=== PATIENT | female | born 1930 | race Caucasian/White ===

== ENCOUNTER 2016-06-28 15:53 | Inpatient (IN) | payer MEDICARE, MEDICAID ==
[2016-06-28] MEDS ORDERED: Aspirin Low Dose CHEW TAB* 81 MG PO ONE (16:13)
[2016-06-28] MEDS ORDERED: Nitroglycerin TAB 0.4 MG* 0.4 MG TAB ONE (16:22)
[2016-06-28 16:38] LABS: Hematocrit 42 % (35-47); Hemoglobin 13.9 g/dl (12.0-16.0); Mean Corpuscular HGB Conc 33 g/dl (31-36); Mean Corpuscular Hemoglobin 29 pg (27-31); Mean Corpuscular Volume 87 fL (80-97); Mean Platelet Volume 9 um3 (7.4-10.4); Red Cell Distribution Width 14 % (10.5-15); White Blood Count 8.1 10^3/ul (3.5-10.8)
[2016-06-28 16:57] LABS: Troponin I 0.01 ng/mL (<0.04)
--- NOTE | 2016-06-28 16:59 | RAD ---
Indication: Chest pain, jaw pain. Cardiovascular disease and chronic obstructive pulmonary disease. Comparison: April 12, [address] demonstrating cardiomegaly and extensive coronary artery calcifications. Technique: Upright AP 1638 hours Report: Cardiomegaly without gross change. Unremarkable central pulmonary vasculature. Mild prominence and rarefaction of the interstitial markings. Grossly clear pleural spaces. Negative for pneumothorax. Multiple healed LEFT rib fractures. IMPRESSION: Stigmata of chronic obstructive pulmonary disease. Cardiomegaly. No acute cardiopulmonary process evident.
[2016-06-28 17:11] LABS: Albumin 3.9 g/dL (3.2-5.2); BUN/Creatinine Ratio 28.8 (8-20); Calcium 9.5 mg/dL (8.6-10.3); EGFR Non-African American 34.2 (>60); Globulin 3.5 g/dL (2-4); Potassium 4.6 mmol/L (3.5-5.0); Total Bilirubin 0.4 mg/dL (0.2-1.0); Total Protein 7.4 g/dL (6.4-8.9)
[2016-06-28 17:19] LABS: TSH (Thyroid Stimulating Horm) 1.45 mcIU/mL (0.34-5.60)
[2016-06-28 18:32] LABS: Urine Bilirubin Negative (Negative); Urine Glucose Negative (Negative); Urine Nitrite Negative (Negative)
--- NOTE | 2016-06-28 19:10 | ED ---
Yury Otero Adam, scribed for Alejandro Moreno MD on 06/28/16 at 1748 . HPI Chest Pain - HPI Summary HPI Summary: Pt is an 85 year old female presenting with CP and jaw pain. She states that the jaw pain set on at approximately 13:00 today and the CP set on upon her arrival at the ED. The CP was an 8/10 in severity but has resolved completely and is now a 0/10. The jaw pain is still present at this time though. Pt also reports some SOB associated with the onset of her pain. She denies any history of jaw problems or jaw pain and she denies any recent falls. Pt also denies dizziness. PMHx includes 2 stents, HTN, SVT, and diverticulitis (has colostomy) . Pt is a former smoker. - History of Current Complaint Chief Complaint: EDChestPainROMI Time Seen by Provider: 06/28/16 16:12 Hx Obtained From: Patient Onset/Duration: Started Hours Ago, Atraumatic, Still Present Timing: Constant, Lasting Hours Initial Severity: Moderate Current Severity: Moderate Pain Intensity: 8 Pain Scale Used: 0-10 Numeric Chest Pain Location: Diffuse Chest Pain Radiates: Yes Chest Pain Radiates To:: Jaw Aggravating Factor(s): Nothing Alleviating Factor(s): Nothing Associated Signs and Symptoms: Positive: Shortness of Breath - Allergy/Home Medications Allergies/Adverse Reactions: Allergies Allergy/AdvReac Type Severity Reaction Status Date / Time Atorvastatin [From Lipitor] Allergy Mild Vomiting Verified 04/12/14 10:32 Sulfa Antibiotics Allergy Mild Vomiting Verified 04/12/14 10:32 Penicillin G Allergy Unknown Rash Verified 04/12/14 10:32 [From Penicillin Potassium-G] Home Medications: Home Medications Alprazolam [Alprazolam] 0.125 mg PO Q4H PRN 06/28/16 [History Confirmed 06/28/16 ] Artificial Tears* 15 ML BTL [Polyvinyl Alcohol 1.4% OPTH*] 1 drop BOTH EYES QID PRN 06/28/16 [History Confirmed 06/28/16] Calcium Carbonate CHEW TAB* [Tums*] 500 mg PO QID PRN 06/28/16 [History Confirmed 06/28/16] Fluorometholone 0.1% OPTH.ALMAS* [Fml 0.1% Opth.susp*] 1 drop BOTH EYES DAILY 05/16 [History Confirmed 06/28/16] Latanoprost [Latanoprost] 1 drop BOTH EYES BEDTIME 06/28/16 [History Confirmed 06/28/16] Levothyroxine TAB* [Synthroid 75 MCG TAB*] 75 mcg PO DAILY 06/28/16 [History Confirmed 06/28/16] Lisinopril [Lisinopril] 10 mg PO DAILY 06/28/16 [History Confirmed 06/28/16] Loperamide HCl [Imodium A-D] 1 cap PO TID PRN 06/28/16 [History Confirmed ] Menthol (Mouth-Throat) [[place] Cough Drops Sugar F] 1 crescencio PO Q4H PRN 06/28/16 [ History Confirmed 06/28/16] Nitroglycerin TAB 0.4 MG* 0.4 mg SL Q5M PRN 06/28/16 [History Confirmed 06/28/16 ] Ondansetron TAB* [Zofran Tab*] 4 mg PO Q6H PRN 06/28/16 [History Confirmed 06/28] Polyvinyl Alcohol-Povidone (Op [Refresh 1.4-0.6 %] 1 drop LEFT EYE BEDTIME 06/28 [History Confirmed 06/28/16] Torsemide [Torsemide] 20 mg PO DAILY 06/28/16 [History Confirmed 06/28/16] guaiFENesin LIQ* [Robitussin*] 10 ml PO Q4H PRN 06/28/16 [History Confirmed 05/16] PMH/Surg Hx/FS Hx/Imm Hx Endocrine/Hematology History: Reports: Hx Thyroid Disease Denies: Hx Diabetes Cardiovascular History: Reports: Hx Coronary Artery Disease - STENT X2, Hx Hypertension Denies: Hx Pacemaker/ICD Respiratory History: Reports: Hx Asthma, Hx Chronic Obstructive Pulmonary Disease (COPD) GI History: Reports: Hx Diverticulosis, Hx Ileostomy History: Denies: Hx Acute Renal Failure, Hx Benign Prostatic Hyperplasia, Hx Chronic Renal Failure Musculoskeletal History: Reports: Hx Arthritis Sensory History: Reports: Hx Cataracts, Hx Contacts or Glasses, Hx Hearing Problem Denies: Hx Hearing Aid Opthamlomology History: Reports: Hx Cataracts, Hx Contacts or Glasses Neurological History: Reports: Hx Headaches Psychiatric History: Reports: Hx Anxiety, Hx Depression Denies: Hx Panic Disorder - Surgical History Surgery Procedure, Year, and Place: BOWEL RESECTION 2004 WITH COLOSTOMY; CARDIAC STENTS 2011; left eye corneal transplant ; right eye cataract removed summer 2013 Infectious Disease History: No Infectious Disease History: Denies: Hx Clostridium Difficile, Hx Hepatitis, Hx Human Immunodeficiency Virus (HIV), Hx Shingles, Hx Tuberculosis, Hx Known/Suspected VRE, Hx Known/ Suspected VRSA, History Other Infectious Disease, Traveled Outside the [place] in Last 30 Days - Family History Known Family History: Positive: Cardiac Disease - CAD - Social History Occupation: Retired [facility]: [facility] Alcohol Use: None Hx Substance Use: No Substance Use Type: Reports: None Hx Tobacco Use: Yes Smoking Status (MU): Former Smoker Type: Cigarettes Length of Time of Smoking/Using Tobacco: 50 YEARS Have You Smoked in the Last Year: No Review of Systems Negative: Fever Positive: Chest Pain Positive: Shortness Of Breath Positive: Other - Jaw pain All Other Systems Reviewed And Are Negative: Yes Physical Exam - Summary Physical Exam Summary: VITAL SIGNS: Reviewed. GENERAL: Patient is a well developed and nourished female who is lying comfortable in the stretcher. Patient is not in any acute respiratory distress. HEAD AND FACE: No signs of trauma. No ecchymosis, hematomas or skull depressions. No sinus tenderness. EYES: PERRLA, EOMI x 2, No injected conjunctiva, no nystagmus. EARS: Hearing grossly intact. Ear canals and tympanic membranes are within normal limits. MOUTH: Oropharynx within normal limits. NECK: Supple, trachea is midline, no adenopathy, no JVD, no carotid bruit, no c- spine tenderness, neck with full ROM. CHEST: Symmetric, no tenderness at palpation LUNGS: Clear to auscultation bilaterally. No wheezing or crackles. CVS: Regular rate and rhythm, S1 and S2 present, no murmurs or gallops appreciated. ABDOMEN: Soft, non-tender. No signs of distention. No rebound no guarding, and no masses palpated. Bowel sounds are normal. EXTREMITIES: FROM in all major joints, no edema, no cyanosis or clubbing. NEURO: Alert and oriented x 3. No acute neurological deficits. Speech is normal and follows commands. SKIN: Dry and warm Triage Information Reviewed: Yes Vital Signs On Initial Exam: Initial Vitals Temp Pulse Resp BP Pulse Ox 98.6 F 100 18 184/98 92 06/28/16 16:06 06/28/16 16:06 06/28/16 16:06 06/28/16 16:06 06/28/16 16:06 Vital Signs Reviewed: Yes - [place] Coma Scale Coma Scale Total: 15 Diagnostics - Vital Signs Vital Signs Temp Pulse Resp BP Pulse Ox 06/28/16 17:08 96 06/28/16 17:07 97.9 F 97 20 148/75 96 06/28/16 17:04 97.9 F 98 20 148/75 95 06/28/16 16:06 98.6 F 100 18 184/98 92 - Laboratory Lab Results: Lab Results 06/28/16 06/28/16 Range/Units 16:20 16:20 WBC 8.1 (3.5-10.8) 10^3/ul RBC 4.80 (4.0-5.4) 10^6/ul Hgb 13.9 (12.0-16.0) g/dl Hct 42 (35-47) % MCV 87 (80-97) fL MCH 29 (27-31) pg MCHC 33 (31-36) g/dl RDW 14 (10.5-15) % Plt Count 226 (150-450) 10^3/ul MPV 9 (7.4-10.4) um3 Neut % (Auto) 62.3 (38-83) % Lymph % (Auto) 22.3 L (25-47) % Young % (Auto) 8.8 (1-9) % Eos % (Auto) 5.6 (0-6) % Baso % (Auto) 1.0 (0-2) % Absolute Neuts (auto) 5.1 (1.5-7.7) 10^3/ul Absolute Lymphs (auto) 1.8 (1.0-4.8) 10^3/ul Absolute Monos (auto) 0.7 (0-0.8) 10^3/ul Absolute Eos (auto) 0.5 (0-0.6) 10^3/ul Absolute Basos (auto) 0.1 (0-0.2) 10^3/ul Absolute Nucleated RBC 0 10^3/ul Nucleated RBC % 0 INR (Anticoag Therapy) 0.89 (0.89-1.11) APTT 32.3 (26.0-36.3) seconds Result Diagrams: 06/28/16 16:20 06/28/16 16:20 Lab Statement: Any lab studies that have been ordered have been reviewed, and results considered in the medical decision making process. - Radiology CXR Radiology Interpretation Completed By: Radiologist - IMPRESSION: Stigmata of chronic obstructive pulmonary disease. Cardiomegaly. No acute cardiopulmonary process evident. - EKG 15:59 Cardiac Rate: NL - 97 BPM EKG Rhythm: Sinus Rhythm EKG Interpretation: No ST elevations. Q waves in II, III, and AVF. EKG Comparison: No Significant Change - Similar to previous EKG from 04/12/14 - Additional Comments Diagnostic Additional Comments: Troponin I - 0.01 Chest Pain Course/Dx - Course Course Of Treatment: Pt is an 85 year old female presenting with CP and jaw pain. She states that the jaw pain set on at approximately 13:00 today and the CP set on upon her arrival at the ED. The CP was an 8/10 in severity but has resolved completely and is now a 0/10. The jaw pain is still present at this time though. Pt also reports some SOB associated with the onset of her pain. She denies any history of jaw problems or jaw pain and she denies any recent falls. Pt also denies dizziness. PMHx includes 2 stents, HTN, SVT, and diverticulitis (has colostomy). Pt is a former smoker. BW shows sodium of 132, chronic renal failure with BUN of 42 and creatinine of 1.46. Troponin I is 0.01. 2 EKG's show sinus rhythm without ST elevations, Q waves in II, III, and AVF. EKG's similar to a previous EKG from 04/12/14. The pt was given ASA and also NTG which improved the pt's symptoms. At this point I discussed the case with Dr. Gamboa from hospitalist services who agreed to admit the pt for further work-up and management. The pt is hemodynamically stable and A&Ox3. - Chest Pain Differential Diagnosis/HQI/PQRI: Acute KS, ACS, Angina, CHF, Chest Wall, GI Disease, Lower Respiratory Infection - Diagnoses Provider Diagnoses: Chest pain r/o ACS Discharge - Discharge Plan Condition: Stable Disposition: ADMITTED TO [facility] The documentation as recorded by the magaliibYury salgado Adam accurately reflects the service I personally performed and the decisions made by me, Alejandro Moreno MD.
[2016-06-28] MEDS ORDERED: Artificial Tears* 15 ML BTL BOTH EYES PRN (19:11)
[2016-06-28] MEDS ORDERED: Calcium Carbonate CHEW TAB* 500 MG (TUMS) PO PRN (19:11)
[2016-06-28] MEDS ORDERED: NS 0.9% 1000 ML* 1,000 ML IV SCH (19:15)
[2016-06-28] MEDS: Ipratropium HFA INHALER(NF) (ALTERNATIVE = NEBS) INH SCH (19:57)
[2016-06-28] MEDS: Artificial Tears* 15 ML BTL LEFT EYE SCH (20:21)
[2016-06-28] MEDS: Latanoprost 0.005%* 2.5 ml BTL BOTH EYES SCH (20:21)
--- NOTE | 2016-06-28 21:49 | PN ---
Hospitalist Progress Note Repeat EKG shows SVT, rate 151. Previous EKG showed NSR. Pt in NSR with rate in the 80's on Tele at this time. Will repeat EKG in AM.
[2016-06-28] MEDS: ALPRAZolam TAB* 0.25 MG PO PRN (22:39)
--- NOTE | 2016-06-29 01:09 | HP ---
HISTORY AND PHYSICAL: DATE OF ADMISSION: 06/28/16 PRIMARY CARE PROVIDER: Dr. Joaquin. ATTENDING PHYSICIAN: [place] Gamboa MD* (dictated by Tamanna Bautista NP). CHIEF COMPLAINT: Jaw pain. HISTORY OF PRESENT ILLNESS: Ms. Jones is an 85-year-old female with past medical history significant for hypothyroidism, hypertension, heart failure, anxiety, depression, hyperlipidemia, osteoporosis, glaucoma, COPD, and atrial fibrillation, who presented to the emergency room today after developing jaw pain at home. The patient reports that she has been feeling very stressed recently, she moved from [facility] on Sunday after having an incident with another resident and being scared. The patient reports not sleeping since the incident until she moved to [place] on Sunday. The patient reports she woke up this morning feeling her normal state of health, ate breakfast and had lunch, was sitting and watching television, when she developed jaw pain. The patient reports walking to the nurses' station, at which time they checked her blood pressure and found her to be hypertensive with a blood pressure of 184/ 108 and tachycardic with a heart rate of 101. The patient was given Xanax and sat. After sitting for a while, her blood pressure was rechecked and was 151/ 93 and heart rate was 100. At that time, the patient's jaw discomfort had resolved. The patient decided to present to the emergency room for further evaluation of her symptoms. Of note, the patient reports feeling fatigued in general today. She states that while she was watching television, she felt even more fatigued. The patient denies any recent fever, chills, shortness of breath, nausea or vomiting, diaphoresis. The patient reports urinary incontinence. While in the emergency room, the patient developed sternal chest discomfort. She is unable to really quantify this. The patient also had return of the jaw pain. The patient was given 3 aspirins while in the emergency room. She had an EKG showing a sinus rhythm with a rate of 9 and a new Q wave in aVF. Other than that, the EKG is similar to the previous EKG from 06/13/16. The patient had a chest x- ray showing stigmata of COPD, cardiomegaly, and no acute cardiopulmonary disease. The patient had labs that were significant for troponin of 0.01. Based on concern for the patient's presentation and EKG abnormalities, the hospitalist were asked to evaluate the patient for admission. PAST MEDICAL HISTORY: 1. Hypothyroidism. 2. Hypertension. 3. Heart failure. 4. Anxiety and depression. 5. Hyperlipidemia. 6. Osteoporosis. 7. Cardiomegaly. 8. Glaucoma. 9. COPD. 10. Atrial fibrillation. 11. Diverticulitis. 12. GERD. PAST SURGICAL HISTORY: 1. The patient is status post cardiac catheterization in 2011, at which time she had 2 cardiac stents placed. 2. Status post bowel resection with colostomy placement. 3. Status post cornea transplant. HOME MEDICATIONS: Include: 1. Aspirin 81 mg oral daily. 2. Levothyroxine 75 mcg oral daily. 3. Fluorometholone 0.1% ophthalmic 1 drop to both eyes daily. 4. Lisinopril 10 mg oral daily. 5. Torsemide 20 mg oral daily. 6. Atrovent HFA inhaler 2 puffs inhalation t.i.d. 7. Latanoprost 1 drop to both eyes daily at bedtime. 8. Guaifenesin 600 mg oral every 12 hours as needed for cough. 9. Xanax 0.125 mg oral every 4 hours as needed for anxiety. 10. Nitroglycerin 0.4 mg sublingual every 5 minutes as needed for chest pain. 11. [place] cough drops 1 lozenge oral every 4 hours as needed for cough. 12. Artificial Tears 1 drop to both eyes 4 times daily as needed for dry eye. 13. Tums 500 mg oral 4 times daily as needed for indigestion. 14. Imodium A-D 1 capsule oral 3 times daily as needed for loose stools. 15. Zofran 4 mg oral every 6 hours as needed for nausea. 16. Refresh eye drops 1 drop to left eye daily at bedtime. 17. Guaifenesin 10 mL oral every 4 hours as needed for cough. ALLERGIES: 1. ATORVASTATIN. 2. SULFA. 3. PENICILLIN G. FAMILY HISTORY: The patient's father had a history of heart disease, the patient's mother had a history of diabetes mellitus and uterine cancer in her 70s. SOCIAL HISTORY: The patient is a former smoker. She quit smoking 6 years ago. Prior to that, the patient smoked for approximately 60 years, approximately half a pack a day. The patient formerly drank alcohol but has not drank alcohol in 14 years. The patient is retired. She currently lives at [facility]. The patient's daughter, Leisa Jones, will be her surrogate decision maker in the event she is unable to make decisions for herself. REVIEW OF SYSTEMS: I performed a 14-point review of systems. All the pertinent positives and negatives are mentioned in the history of present illness. The remaining review of systems are negative. The patient reports intermittent tingling in her left arm. Often she wakes up in the night with this discomfort and she has had this for quite some time. PHYSICAL EXAMINATION GENERAL APPEARANCE: The patient is alert, pleasant, appears to be in no acute distress. VITAL SIGNS: Temperature 97.9, heart rate 97, respiratory rate 20, O2 sat 96% on 2 L via nasal cannula, blood pressure 148/75. HEENT: Normocephalic, atraumatic. Pupils are equal and reactive to light. Extraocular movements are intact. NECK: Supple. There is no lymphadenopathy noted. RESPIRATORY: There is no accessory muscle use and the lungs are clear to auscultation bilaterally. CARDIAC: Regular rate and rhythm. S1, S2 are present. There are no murmurs, rubs or gallops heard. ABDOMEN: Soft, nontender, nondistended. There are bowel sounds present x4. The patient has an ostomy to her left side of her abdomen. EXTREMITIES: There is no lower extremity edema. DP and PT pulses are 2+ and symmetric. MUSCULOSKELETAL: There is no clubbing or cyanosis noted. The patient exhibits good strength in all extremities. NEUROLOGIC: The patient is alert and oriented x4. Cranial nerves II through XII are grossly intact. PSYCHOLOGIC: The patient is calm and cooperative. SKIN: There are no rashes or abnormalities seen. DIAGNOSTIC STUDIES/LABORATORY DATA: Sodium 132, potassium 4.6, chloride 99, CO2 is 23, BUN 42, creatinine 1.46, glucose 111. White blood cell count 8.1, hemoglobin 13.9, hematocrit 42, and platelet count 226. Troponin 0.01, TSH 1.45. EKG shows a sinus rhythm with a rate of 97. There is a new Q wave in lead aVF. Other than that, the EKG is similar to previous EKG from March 2014. Chest x-ray from today, radiologist's impression: Stigmata of chronic obstructive pulmonary disease. Cardiomegaly. No acute cardiopulmonary process evident. IMPRESSION: Ms. Jones is an 85-year-old female with a past medical history significant for coronary artery disease, heart failure, hypertension, hyperlipidemia, hypothyroidism, and chronic obstructive pulmonary disease, who presented to the emergency room with complaints of jaw pain. She will be admitted as an observation for chest pain to rule out acute coronary syndrome. ASSESSMENT: 1. Chest pain. The patient will be admitted to rule out acute coronary syndrome. The patient will be monitored on telemetry, will trend her troponins. At this time, the patient is declining a stress test, so we will check an echocardiogram. We will also recheck an EKG in the morning. Having a stress test and the possibility of a cardiac catheterization was discussed with both the patient and the daughter at this time. They both agree to forego cardiac stress testing. Will check fasting lipids in the morning. Her ELISSA score is 2. 2. Hyponatremia. The patient will be given gentle IV hydration overnight and we will recheck her labs in the morning. 3. Acute on chronic kidney injury. The patient's baseline creatinine appears to be around 1.0. We will give her a gentle IV hydration, will recheck her labs in the morning. For now, we will hold the patient's lisinopril and torsemide. 4. History of glaucoma. The patient will be continued on her home eye drops. 5. Hypothyroidism. The patient will be continued on her home levothyroxine. Her TSH is 1.45. 6. Heart failure. The patient will have strict I's and O's and daily weights. Due to her acute on chronic kidney injury, we will temporarily hold her torsemide and recheck her labs in the morning and then restart her medication accordingly. 7. Fluids, electrolytes, nutrition. The patient will be on a heart healthy diet. 8. Code status. Do not resuscitate. 9. DVT prophylaxis. The patient is at highest risk and will have subcu heparin. 10. Disposition. Observation for chest pain, rule out acute coronary syndrome. TIME SPENT: The time for this admission was 60 minutes, 35 minutes was spent face- to-face with the patient and daughter discussing medications, past medical history and the events leading up to her arrival today and performing a physical examination. The case has been reviewed with the attending, Dr. Gamboa, who agrees with the plan of care. Reviewed by TAMANNA BAUTISTA, PENELOPE-David 06/29/16 1459 CC: Dr. Joaquin * [id number]/[facility] #: [id number] DRAGAN
[2016-06-29] MEDS: Levothyroxine TAB* 75 MCG TAB PO SCH (05:11)
[2016-06-29] MEDS: Acetaminophen TAB* 325 MG PO PRN (05:11)
[2016-06-29 05:36] LABS: BUN/Creatinine Ratio 29.3 (8-20); Calcium 8.8 mg/dL (8.6-10.3); EGFR Non-African American 38.1 (>60); HDL Cholesterol 40.5 mg/dL; Potassium 4.3 mmol/L (3.5-5.0)
[2016-06-29] MEDS: ALPRAZolam TAB* 0.25 MG PO PRN ×2 (05:56→18:57)
[2016-06-29 06:21] LABS: Troponin I 0.02 ng/mL (<0.04)
[2016-06-29] MEDS: Ipratropium HFA INHALER(NF) (ALTERNATIVE = NEBS) INH SCH ×3 (08:33→20:01)
[2016-06-29] MEDS: Fluorometholone 0.1% OPTH.SUS* 5 ML BTL BOTH EYES SCH (09:39)
[2016-06-29] MEDS: Aspirin EC Low Dose* 81 MG TAB.EC PO SCH (09:39)
--- NOTE | 2016-06-29 11:08 | ECHO ---
Patient: FRANCIA JACKMAN [facility] Rec#: [id number] : 1930 Date: 06/29/2016 Age: 85y Height: 152.4 cm / 60.0 in Weight: 73.94 kg / 163.0 lbs Sex: F BSA: 1.71 Room#: [facility] Admit Date#: 06/28/2016 Type: Inpatient Referring: Inga Quick NP Reading: Javier Swanson MD Morning Nanny: Yamileth Vargas RDCS CC: Zhao Rodríguez MD Transthoracic Echocardiogram Indication: CP BP: 146/80 HR: 87 Rhythm: NSR Findings History: Former smoker,s/p PCI 2011 2 stents,anxiety-depression,s/p colostomy 2004,asthma,COPD,HLD,hypothyroidism. Technical Comments: The study is technically limited due to the patient's history of COPD. Completed at 1010. Left Ventricle: The left ventricular chamber size is decreased. Mild to moderate concentric left ventricular hypertrophy is observed. Global left ventricular wall motion and contractility are within normal limits. There is normal left ventricular systolic function. The estimated ejection fraction is 60-65%. Abnormal left ventricular diastolic function is observed. Left Atrium: The left atrium is slightly dilated. Right Ventricle: The right ventricular cavity size is normal. The right ventricular global systolic function is normal. Right Atrium: The right atrial cavity size is normal. Aortic Valve: The aortic valve is trileaflet. There is no evidence of aortic regurgitation. There is no evidence of aortic stenosis. Mitral Valve: There is mitral annular calcification. Mild mitral leaflet calcification is visualized. There is trace to mild mitral regurgitation. There is no evidence of mitral stenosis. Tricuspid Valve: The tricuspid valve leaflets are normal. There is trace tricuspid regurgitation. There is evidence of mild pulmonary hypertension. There is no tricuspid stenosis. Pulmonic Valve: The pulmonic valve appears normal. There is no evidence of pulmonic regurgitation. There is no pulmonic stenosis. Pericardium: A pericardial fat pad is visualized. Aorta: There is no dilatation of the ascending aorta. There is no dilatation of the aortic arch. There is no dilation of the aortic root. Pulmonary Artery: The main pulmonary artery appears normal. Venous: The venous system is not well visualized. Conclusions Global left ventricular wall motion and contractility are within normal limits. There is normal left ventricular systolic function. The estimated ejection fraction is 60-65%. No significant valvular disease: The mitral leaflets and annulus has calcium present without evidence offered for stenosis. There is trace to mild mitral regurgitation. There is trace tricuspid regurgitation. Compared to report of study from 08/21/2013 the overall LV systolic function is better (was quoted as 45-50%). Measurements Name Value Normal Range RVIDd (AP) 2D 2.5 cm (0.9 - 2.6) RVDdMajor (2D) 3.4 cm (2.2 - 4.4) RAd ISD 4CH 4.9 cm (3.4 - 4.9) RA (A4C)W 3.9 cm (2.9 - 4.6) IVSd (2D) 1.4 cm (0.6 - 1) LVPWd (2D) 1.4 cm (0.6 - 1) LVIDd (2D) 3.2 cm (3.6 - 5.4) LVIDs (2D) 2 cm - LV FS (2D) 40 % (25 - 45) Aortic Annulus 1.9 cm (1.4 - 2.6) Ao root diameter (2D) 2.5 cm (2.1 - 3.5) Ascending Ao 3.4 cm (2.1 - 3.4) Aortic arch 2.1 cm (1.8 - 3.4) Descending Ao 0.6 cm - LA dimension (AP) 2D 4 cm (2.3 - 3.8) LAd ISD 4CH 5.6 cm (2.9 - 5.3) LA ISD 4CH W 3.9 cm (2.5 - 4.5) Name Value Normal Range LA ESV SP 4CH (A/L) 65 ml - LA ESV SP 2CH (A/L) 41 ml - LA ESV BP (A/L) 54 ml - LA ESV BP (A/L) index 31.67 ml/m2 - LA ESV SP 4CH (MOD) 61 ml - LA ESV SP 2CH (MOD) 39 ml - Name Value Normal Range MV E-wave Vmax 1.2 m/sec - MV deceleration time 189 msec - MV A-wave Vmax 1.2 m/sec - MV E:A ratio 0.99 ratio - LV septal e' Vmax 0.06 m/sec - LV lateral e' Vmax 0.05 m/sec - LV E:e' septal ratio 20 ratio - LV E:e' lateral ratio 24 ratio - Name Value Normal Range AV Vmax 1.6 m/sec - AV VTI 32.3 cm - AV peak gradient 9.64 mmHg - AV mean gradient 4.73 mmHg - LVOT Vmax 1 m/sec - LVOT VTI 25.2 cm - LVOT peak gradient 4.32 mmHg - LVOT mean gradient 2.25 mmHg - Name Value Normal Range TR Vmax 2.7 m/sec - TR peak gradient 29 mmHg - RAP 8 mmHg - RVSP 37 mmHg - Name Value Normal Range PV Vmax 0.7 m/sec - PV peak gradient 1.97 mmHg -
--- NOTE | 2016-06-29 13:45 | PN ---
Subjective Date of Service: 06/29/16 Interval History: Patient reports she isnt ready to go home still has jaw pain and is worried about the CP she was experiencing that she now reports has resolved. She now wants a cardiac stress test. Curently denies CP or SOB. Reports good appetite. No N/V/D Objective Active Medications: Acetaminophen (Tylenol Tab*) 650 mg PO Q6H PRN PRN Reason: FEVER/PAIN Last Admin: 06/29/16 05:11 Dose: 650 mg Alprazolam (Xanax Tab*) 0.125 mg PO QID PRN PRN Reason: ANXIETY Last Admin: 06/29/16 05:56 Dose: 0.125 mg Aspirin (Aspirin Ec Low Dose*) 81 mg PO DAILY [facility] Last Admin: 06/29/16 09:39 Dose: 81 mg Calcium Carbonate (Tums*) 500 mg PO QID PRN PRN Reason: INDIGESTION Fluorometholone Acetate (Fml 0.1% Opth.Susp*) 1 drop BOTH EYES DAILY [facility] Last Admin: 06/29/16 09:39 Dose: 1 drop Ipratropium [place] (Atrovent Hfa Inhaler*) 2 puff INH TID [facility] Last Admin: 06/29/16 08:33 Dose: 2 puff Latanoprost (Xalatan 0.005%*) 1 drop BOTH EYES BEDTIME [facility] Last Admin: 06/28/16 20:21 Dose: 1 drop Levothyroxine Sodium (Synthroid Tab*) 75 mcg PO 0600 [facility] Last Admin: 06/29/16 05:11 Dose: 75 mcg Polyvinyl Alcohol (Polyvinyl Alcohol 1.4% Opth*) 1 drop LEFT EYE BEDTIME [facility] Last Admin: 06/28/16 20:21 Dose: 1 drop Polyvinyl Alcohol (Polyvinyl Alcohol 1.4% Opth*) 1 drop BOTH EYES QID PRN PRN Reason: dry eyes Last Admin: 06/29/16 09:40 Dose: 1 drop Vital Signs 06/28/16 06/28/16 06/28/16 18:00 18:19 18:30 Temperature Pulse Rate 100 94 Respiratory 19 20 21 Rate Blood Pressure 155/95 171/114 166/148 (mmHg) O2 Sat by Pulse 96 97 Oximetry 06/28/16 06/28/16 06/28/16 18:51 18:58 19:00 Temperature Pulse Rate 106 99 102 Respiratory 19 19 18 Rate Blood Pressure 181/94 170/81 (mmHg) O2 Sat by Pulse 97 97 97 Oximetry 06/28/16 06/28/16 06/28/16 19:20 22:39 23:04 Temperature 97 F 97.7 F Pulse Rate 99 95 Respiratory 20 18 18 Rate Blood Pressure 170/81 166/80 (mmHg) O2 Sat by Pulse 95 92 Oximetry 06/29/16 06/29/16 06/29/16 00:24 00:39 04:00 Temperature 97.7 F 97.6 F Pulse Rate 76 83 Respiratory 20 16 20 Rate Blood Pressure 115/62 146/80 (mmHg) O2 Sat by Pulse 95 99 Oximetry 06/29/16 06/29/16 06/29/16 05:56 07:36 08:35 Temperature Pulse Rate 71 Respiratory 18 18 Rate Blood Pressure 135/69 (mmHg) O2 Sat by Pulse 99 95 Oximetry 06/29/16 11:33 Temperature 99.1 F Pulse Rate 82 Respiratory 16 Rate Blood Pressure 138/65 (mmHg) O2 Sat by Pulse 94 Oximetry Oxygen Devices in Use Now: None Appearance: elderly female sitting up in a chair Eyes: No Scleral Icterus, PERRLA Ears/Nose/Mouth/Throat: Clear Oropharnyx Respiratory: Symmetrical Chest Expansion and Respiratory Effort, Clear to Auscultation Cardiovascular: NL Sounds; No Murmurs; No JVD, RRR, No Edema Abdominal: NL Sounds; No Tenderness; No Distention Lymphatic: No Axillary Adenopathy Extremities: No Clubbing, Cyanosis Skin: No Rash or Ulcers, No Nodules or Sclerosis Neurological: Alert and Oriented x 3, NL Sensation, NL Gait, NL Muscle Strength and Tone Lines/Tubes/Other Access: Clean, Dry and Intact Peripheral IV Nutrition: Taking PO's Result Diagrams: 06/28/16 16:20 06/29/16 04:51 Additional Lab and Data: Lab Results 06/28/16 06/28/16 Range/Units 16:20 16:20 WBC 8.1 (3.5-10.8) 10^3/ul RBC 4.80 (4.0-5.4) 10^6/ul Hgb 13.9 (12.0-16.0) g/dl Hct 42 (35-47) % MCV 87 (80-97) fL MCH 29 (27-31) pg MCHC 33 (31-36) g/dl RDW 14 (10.5-15) % Plt Count 226 (150-450) 10^3/ul MPV 9 (7.4-10.4) um3 Neut % (Auto) 62.3 (38-83) % Lymph % (Auto) 22.3 L (25-47) % Hardy % (Auto) 8.8 (1-9) % Eos % (Auto) 5.6 (0-6) % Baso % (Auto) 1.0 (0-2) % Absolute Neuts (auto) 5.1 (1.5-7.7) 10^3/ul Absolute Lymphs (auto) 1.8 (1.0-4.8) 10^3/ul Absolute Monos (auto) 0.7 (0-0.8) 10^3/ul Absolute Eos (auto) 0.5 (0-0.6) 10^3/ul Absolute Basos (auto) 0.1 (0-0.2) 10^3/ul Absolute Nucleated RBC 0 10^3/ul Nucleated RBC % 0 INR (Anticoag Therapy) 0.89 (0.89-1.11) APTT 32.3 (26.0-36.3) seconds Assess/Plan/Problems-Billing Assessment: 85 yo female with PMH of CAD s/p stenting, hx of colon cancer s/p colectomy, RA, CHF, HTN, anxiety, COPD who presented to the ED from [place] with jaw pain admitted for CP r/o ACS - Patient Problems (1) Chest pain Comment: - hx of CAD s/p stent placement - Pt initially refuse Nuc stress test now wants to proceed with obtaining stress test. Unlcear etiology of jaw pain/chest pain but agree with plan for stress test due to hx. No further symptoms. run of SVT last night rate 150s which resolved quickly on its own. Continue to monitor on tele. No EKG changes noted form prior EKGs. - plan for NPO p midnight with Cardiac Nuc Stress test in am. - 3 negative troponins - TTE showing global left ventricular wall motion and contractility wnls, LVEF 60-65% (increased from 45-50% 2013), no significant valvular disease - continue ASA (2) History of COPD Comment: - stable. Continue home INH's (3) Hx of congestive heart failure Comment: - stable, asymptomatic. Continue lisinopril. Hold Torsemide, recheck creatinine in am. Daily weights (4) History of hypertension Comment: - restart lisinopril (5) History of hypothyroidism Comment: - TSH wnls - continue synthroid (6) CKD (chronic kidney disease) Comment: - close to baseline. improved with IVFs (7) Anxiety Comment: - continue xanax (8) History of colon cancer Comment: - s/p colectomy (9) DVT prophylaxis Comment: HSQ Status and Disposition: OBV. Plan for nuc cardiac stress test in am.
[2016-06-29] MEDS ORDERED: Lisinopril TAB* 10 MG PO ONE (18:00)
[2016-06-29] MEDS: Artificial Tears* 15 ML BTL LEFT EYE SCH (20:21)
[2016-06-29] MEDS: Heparin VIAL(*) 5000 UNITS/ML VIAL (FIVE THOUSAND) SUBCUT SCH (20:21)
[2016-06-29] MEDS: Latanoprost 0.005%* 2.5 ml BTL BOTH EYES SCH (20:21)
[2016-06-30] MEDS: Acetaminophen TAB* 325 MG PO PRN (00:34)
[2016-06-30] MEDS: Levothyroxine TAB* 75 MCG TAB PO SCH (05:07)
[2016-06-30] MEDS: Heparin VIAL(*) 5000 UNITS/ML VIAL (FIVE THOUSAND) SUBCUT SCH ×3 (05:07→20:49)
[2016-06-30 05:53] LABS: Hematocrit 44 % (35-47); Hemoglobin 14.5 g/dl (12.0-16.0); Mean Corpuscular HGB Conc 33 g/dl (31-36); Mean Corpuscular Hemoglobin 29 pg (27-31); Mean Corpuscular Volume 87 fL (80-97); Mean Platelet Volume 9 um3 (7.4-10.4); Red Blood Count 5.05 10^6/ul (4.0-5.4); Red Cell Distribution Width 14 % (10.5-15); White Blood Count 7.9 10^3/ul (3.5-10.8)
[2016-06-30 06:07] LABS: BUN/Creatinine Ratio 26.7 (8-20); Calcium 9.3 mg/dL (8.6-10.3); EGFR African American 57.4 (>60); EGFR Non-African American 44.6 (>60); Potassium 4.8 mmol/L (3.5-5.0)
[2016-06-30] MEDS: Ipratropium HFA INHALER(NF) (ALTERNATIVE = NEBS) INH SCH ×3 (08:50→22:09)
[2016-06-30] MEDS ORDERED: Lisinopril TAB* 10 MG PO SCH (09:00)
[2016-06-30] MEDS ORDERED: Regadenoson* 0.4 MG/5 ML SYRINGE ONE (10:22)
[2016-06-30] MEDS ORDERED: Aminophylline IV* 25 MG/ML 10 ML VIAL ONE (11:18)
[2016-06-30] MEDS ORDERED: Loperamide CAP* 2 MG PO ONE (13:03)
--- NOTE | 2016-06-30 13:14 | RAD ---
Indication: Chest pain. Myocardial perfusion scan was performed utilizing 1 day protocol. 10.04 mCi of technetium 99 and tetrofosmin was injected for the rest portion of the study. Pharmacological stress was applied and 25.06 mCi of technetium 99m tetrofosmin was injected for the stress portion of the study. On the stress images there is a moderate-sized inferolateral area of photopenia. This appears to partially reverse on the rest images. Ventricle is normal in size. Ejection fraction at stress is present. Evaluation of wall motion demonstrates no definite focal wall motion. IMPRESSION: There appears to be moderate size reversible defect involving the inferolateral wall. Normal ejection fraction. ASSESSMENT: Intermediate risk Based on imaging criteria from ACC/AHA 2002 Guideline Update for the Management of Patients With Chronic Stable Angina Table 23. Noninvasive Risk Stratification.
[2016-06-30] MEDS: Aspirin EC Low Dose* 81 MG TAB.EC PO SCH (13:16)
[2016-06-30] MEDS: Fluorometholone 0.1% OPTH.SUS* 5 ML BTL BOTH EYES SCH (13:17)
[2016-06-30] MEDS: ALPRAZolam TAB* 0.25 MG PO PRN (13:46)
--- NOTE | 2016-06-30 14:45 | PN ---
Subjective Date of Service: 06/30/16 Interval History: pt reports she feels she is at her baseline and has not had a further CP or jaw pain. She reports she has ambulated in her room w/o any difficulty. Feels stronger today compared to yesterday. Good appetite. No N/V/D. Denies orthopnea or LE edema. Objective Active Medications: Acetaminophen (Tylenol Tab*) 650 mg PO Q6H PRN PRN Reason: FEVER/PAIN Last Admin: 06/30/16 00:34 Dose: 650 mg Alprazolam (Xanax Tab*) 0.125 mg PO QID PRN PRN Reason: ANXIETY Last Admin: 06/30/16 13:46 Dose: 0.125 mg Aspirin (Aspirin Ec Low Dose*) 81 mg PO DAILY [facility] Last Admin: 06/30/16 13:16 Dose: 81 mg Calcium Carbonate (Tums*) 500 mg PO QID PRN PRN Reason: INDIGESTION Fluorometholone Acetate (Fml 0.1% Opth.Susp*) 1 drop BOTH EYES DAILY [facility] Last Admin: 06/30/16 13:17 Dose: 1 drop Heparin Sodium (Porcine) (Heparin Vial(*)) 5,000 units SUBCUT Q8HR [facility] Last Admin: 06/30/16 05:07 Dose: 5,000 units Ipratropium [place] (Atrovent Hfa Inhaler*) 2 puff INH TID [facility] Last Admin: 06/30/16 14:15 Dose: Not Given Latanoprost (Xalatan 0.005%*) 1 drop BOTH EYES BEDTIME [facility] Last Admin: 06/29/16 20:21 Dose: 1 drop Levothyroxine Sodium (Synthroid Tab*) 75 mcg PO 0600 [facility] Last Admin: 06/30/16 05:07 Dose: 75 mcg Lisinopril (Prinivil Tab*) 10 mg PO DAILY [facility] Last Admin: 06/30/16 13:16 Dose: 10 mg Polyvinyl Alcohol (Polyvinyl Alcohol 1.4% Opth*) 1 drop LEFT EYE BEDTIME [facility] Last Admin: 06/29/16 20:21 Dose: 1 drop Polyvinyl Alcohol (Polyvinyl Alcohol 1.4% Opth*) 1 drop BOTH EYES QID PRN PRN Reason: dry eyes Last Admin: 06/29/16 09:40 Dose: 1 drop Vital Signs 06/29/16 06/29/16 06/29/16 15:49 16:44 18:57 Temperature 97.6 F Pulse Rate 95 Respiratory 16 24 Rate Blood Pressure 162/88 (mmHg) O2 Sat by Pulse 95 94 Oximetry 06/29/16 06/29/16 06/29/16 20:00 20:12 20:57 Temperature 97.6 F Pulse Rate 87 Respiratory 16 16 18 Rate Blood Pressure 135/69 (mmHg) O2 Sat by Pulse 93 Oximetry 06/30/16 06/30/16 06/30/16 00:05 03:27 08:07 Temperature 97.5 F 98.2 F 97.5 F Pulse Rate 85 98 86 Respiratory 20 20 24 Rate Blood Pressure 156/90 149/85 162/93 (mmHg) O2 Sat by Pulse 93 91 95 Oximetry 06/30/16 06/30/16 06/30/16 08:51 13:16 13:46 Temperature Pulse Rate Respiratory 18 16 Rate Blood Pressure (mmHg) O2 Sat by Pulse 97 Oximetry Oxygen Devices in Use Now: None Appearance: 85 yo female sitting up in a chair in NAD. A+O x3 Eyes: No Scleral Icterus, PERRLA Ears/Nose/Mouth/Throat: NL Teeth, Lips, Gums, Mucous Membranes Moist Neck: NL Appearance and Movements; NL JVP Respiratory: Symmetrical Chest Expansion and Respiratory Effort, Clear to Auscultation Cardiovascular: NL Sounds; No Murmurs; No JVD, RRR, No Edema Abdominal: NL Sounds; No Tenderness; No Distention Lymphatic: No Cervical Adenopathy Extremities: No Edema, No Clubbing, Cyanosis Skin: No Rash or Ulcers, No Nodules or Sclerosis Neurological: Alert and Oriented x 3, NL Sensation, NL Gait, NL Muscle Strength and Tone Lines/Tubes/Other Access: Clean, Dry and Intact Peripheral IV Nutrition: Taking PO's Result Diagrams: 06/30/16 05:15 06/30/16 05:15 Additional Lab and Data: Lab Results 06/28/16 06/28/16 Range/Units 16:20 16:20 WBC 8.1 (3.5-10.8) 10^3/ul RBC 4.80 (4.0-5.4) 10^6/ul Hgb 13.9 (12.0-16.0) g/dl Hct 42 (35-47) % MCV 87 (80-97) fL MCH 29 (27-31) pg MCHC 33 (31-36) g/dl RDW 14 (10.5-15) % Plt Count 226 (150-450) 10^3/ul MPV 9 (7.4-10.4) um3 Neut % (Auto) 62.3 (38-83) % Lymph % (Auto) 22.3 L (25-47) % Swain % (Auto) 8.8 (1-9) % Eos % (Auto) 5.6 (0-6) % Baso % (Auto) 1.0 (0-2) % Absolute Neuts (auto) 5.1 (1.5-7.7) 10^3/ul Absolute Lymphs (auto) 1.8 (1.0-4.8) 10^3/ul Absolute Monos (auto) 0.7 (0-0.8) 10^3/ul Absolute Eos (auto) 0.5 (0-0.6) 10^3/ul Absolute Basos (auto) 0.1 (0-0.2) 10^3/ul Absolute Nucleated RBC 0 10^3/ul Nucleated RBC % 0 INR (Anticoag Therapy) 0.89 (0.89-1.11) APTT 32.3 (26.0-36.3) seconds Assess/Plan/Problems-Billing Assessment: 85 yo female with PMH of CAD s/p stenting, hx of colon cancer s/p colectomy, RA, CHF, HTN, anxiety, COPD who presented to the ED from [place] with jaw pain admitted for CP r/o ACS - Patient Problems (1) Chest pain Comment: - hx of CAD s/p bare metal stent placement LAD 12/11/2011 - Pt initially refused Nuc stress test then changed her mind and underwent a stress test today: Nuclear stress test - EKG portion no evidence myocardial ischemia by EKG criteria. Nuclear med placing pt at Indeterminate risk showing moderate size reversible defect involving the inferolateral wall but most likely attenuation No further symptoms. run of SVT 06/[address] - TTE showing global left ventricular wall motion and contractility wnls, LVEF 60-65% (increased from 45-50% 2013), no significant valvular disease - continue ASA - Consult by Dr. Swanson. Plan to D/C lisinopril and start BB, norvasc, plan to monitor pt on tele and start full medical management with BB and norvasc, ambulate pt and see if she #1 tolerates medications (may need to titrate up on meds) and #2 have any CP with ambulation. Recommends staying until at least Sunday. - Awaiting notes from Dr. Larios - primary cardiolgist - however due to ptaients recent move to [place] she will need new youth care professional in [place]. - Dr. Rose to follow up (2) History of COPD Comment: - stable. Continue home INH's (3) Hx of congestive heart failure Comment: - stable, asymptomatic. Hold Torsemide, recheck creatinine in am. Daily weights (4) History of hypertension Comment: - DC lisinopril, start Metoprolol, norvasc (5) History of hypothyroidism Comment: - TSH wnls - continue synthroid (6) CKD (chronic kidney disease) Comment: - close to baseline. improved with IVFs (7) Anxiety Comment: - continue xanax (8) History of colon cancer Comment: - s/p colectomy (9) DVT prophylaxis Comment: HSQ Status and Disposition: inpatient. Plan to start new cardiac medications ambulate patient and see how she tolerates.
[2016-06-30] MEDS: CMCS:Simvastatin TAB(NF) 20 MG TAB PO SCH (18:32)
[2016-06-30] MEDS: Metoprolol Tartrate TAB* 25 MG PO SCH (20:47)
[2016-06-30] MEDS: Artificial Tears* 15 ML BTL LEFT EYE SCH (20:48)
[2016-06-30] MEDS: Latanoprost 0.005%* 2.5 ml BTL BOTH EYES SCH (20:49)
--- NOTE | 2016-06-30 23:35 | CONS ---
CARDIOLOGY CONSULTATION: DATE OF CONSULT: 06/30/16 REASON FOR THE CONSULT: The patient presents with history of jaw and chest discomfort with now an abnormal nuclear stress test, asked to evaluate the patient with a history of prior stents. HISTORY OF PRESENT ILLNESS: The patient is a pleasant 85-year-old female whose cardiac history appears to have dated back to 2011 when she apparently was seen on 12/11/11 at [facility] with prominent ST segment elevation in 2, 3, aVF with negative serial enzymes. The next day, she was transferred to [facility] in [place] where apparently cardiac catheterization showed critical single-vessel disease of the LAD and moderate disease of the right coronary artery with a normal ejection fraction. She underwent overlap stent placing with 2 bare metal stents on 12/12/11 with advised dual antiplatelet therapy for at least a month. Since she had the stents placed, she had generalized weakness with subtle ST segment changes in January 2012 and has reportedly a negative nuclear stress test in January 2012. Since that time to now, she has had no significant problems. Her problems date back to recent weeks at [facility] and then now at [facility]. She states that she would get up in the middle of the night and go to the bathroom and when she come lay down again, she would have a dull upper left chest discomfort and left shoulder discomfort and her hand would go numb. Interestingly, this did not occur when she would be up walking around at these facilities. On the day that she was admitted to the hospital, interestingly, she was sitting watching TV and developed jaw discomfort. She went to the nurses' station and they checked her blood pressure, was found to be elevated. I do not know what her pulse was at that time in the nursing facility. They gave her Xanax that she describes as her chill pill and with that, they watched her again and her blood pressure still did not come down. So, she went to the emergency room. She was still having the jaw discomfort. Apparently in the emergency room, her chest discomfort was longer present according to the emergency room physician's note, but she still had some mild jaw discomfort. She came to the emergency room at 3:53 and according to the emergency room physician, her symptoms started at 1 p.m. In the emergency room, she had an EKG that was dated 06/28/16 timed 1559 that showed a heart rate of 97 beats per minute. Interestingly, a repeat EKG done at 1620 now showed a heart rate of 151. Distinct P waves were not readily identifiable. Interestingly, the repeat EKG was not commented on in the emergency room physician's note. According to the patient, she believes the jaw discomfort came back on within 5 or 10 minutes of being in the emergency room that may correlate with the concept of developing SVT. She herself also reportedly has a history of SVT and hypertension in addition to the 2 stents placed. Since being in the hospital here, she has had no specific recurrence of the jaw discomfort and she walks to and from the bathroom and has had none of her upper left arm discomfort. She has not taken long walks around the halls. Today, she wanted to know what the workup was going to be with her jaw discomfort and she had initially refused the stress test and then agreed to it and as such a Lexiscan stress test was performed today, which showed no significant EKG changes suggestive of ischemia. The nuclear images on first interpretation commented on a moderate- sized reversible defect to the inferolateral wall on the non-attenuation corrected images. There was partial reversibility on the rest image. There was no comment on the attenuation corrected portion. This was pointed out to the radiologist by the mechanic sound technician and the following report described that the lateral defect partially corrected on the attenuation corrected images, but there was still a relative hypoperfusion lateral wall on both attenuation corrected and nonattenuation corrected images, although they said the artifact could be secondary to perhaps breast tissue interference. They described that clinical suspicion should be investigated. As such, from the initial scan report without having the addendum report, the hospitalist asked me to see the patient in consultation for further assessment. In reviewing the patient's medication from home, she was on lisinopril, also on levothyroxine, torsemide with regard to any heart-related pills, and nitroglycerin as needed. PAST MEDICAL HISTORY: That she offered me included: 1. COPD. 2. Hypertension. 3. Hyperlipidemia, although she states she cannot tolerate atorvastatin as they made her sick to her stomach. She also has a history of anxiety and depression, osteoporosis, cardiomegaly, glaucoma, and according to the admission history and physical by nurse practitioner, Michele, stated a history of atrial fibrillation, which I do not know where that was gotten from the emergency room note, seemed to suggest supraventricular tachycardia. PAST SURGICAL HISTORY: Includes colostomy for diverticulitis 14 years ago. FAMILY HISTORY: Includes perhaps a father with heart problems, but no other relatives. CARDIAC RISK FACTORS: Include the hypertension, hyperlipidemia. She denies any diabetes. She smoked for 55 years, but quit after stents in 2011 and the family history borderline with the father. REVIEW OF SYSTEMS: As per the H and P with no additional findings. PHYSICAL EXAMINATION: When I see her currently reveals an elderly female resting in no acute distress. Vital signs reveal most recent blood pressure was from this morning, most likely prior to medications 162/93, pulse was 86, O2 saturations 95% to 97% on room air, respirations 24, afebrile. Neck was supple. No increased JVP. Carotids had fair upstroke and volume. There were no bruits or transmitted murmur. Conjunctivae are pink. Sclerae clear. Lungs revealed no accessory muscle usage. There was fair excursion. There were slightly breath sounds bilaterally. Heart revealed no visible heaves. No palpable heaves or thrills. Normal S1, S2 with no S3, S4, or gallop. No significant systolic or diastolic murmur. Abdomen was soft, nontender without organomegaly. Abdomen was obese in nature. Extremities were without clubbing, cyanosis, or selena pitting edema. Peripheral pulses intact. Femoral pulse present without bruit. Neuro: The patient alert, oriented with normal mentation. Musculoskeletal: The patient moves all extremities appropriately. She does have arthritic changes. Psychiatric: The patient with normal affect. DIAGNOSTIC STUDIES/LAB DATA: Additional testing while in the hospital included an echocardiogram revealing [id number] concentric left ventricular hypertrophy with an EF of 60% to 65%, mildly dilated left atrium. There was trace to mild mitral regurgitation, trace tricuspid regurgitation. Compared to an echo report of 08/21/13, if anything the LV function was better. Electrocardiogram on admission dated 06/28/16 timed 1559 revealed normal sinus rhythm, heart rate 97, normal ND, QRS, and QT intervals. There were no acute ST -T wave changes. Question very small Q wave in 2 and aVF was raised. Repeat EKG done literally 21 minutes later revealed a tachycardic rate at 151 with interestingly no acute ST segment depression or evidence for ischemia at a heart rate that would represent 114% of age-prediced maximal heart rate. Chest x-ray report showed stigmata of chronic obstructive lung disease with some degree of cardiomegaly and no acute process. Blood laboratory results revealed on admission a hemoglobin and hematocrit of 13.9 and 42, white count of 8100, and platelet count of 226,000. BUN and creatinine of 42 and 1.46 with a sodium of 132, potassium 4.6, chloride 99, bicarb 23. Troponins were 0.01, 0.03, and 0.02. A BNP was 70 and her LDL was 129 with total cholesterol 200. Repeat blood test on 06/30/16 revealed hemoglobin and hematocrit of 14.5 and 44 with a platelet count of 214,000, white count 7900. Sodium of 135, potassium 4.8, chloride 105, bicarb 24, BUN and creatinine of 31 and 1.16. OVERALL ASSESSMENT: Alvina presents with a very atypical sounding symptoms. First going to the left upper chest and shoulder discomfort that occurred only at nighttime when she would get back to bed after going to the bathroom, but not occurring during the daytime, I do not believe this sounds of an ischemic etiology. With regard to the jaw discomfort that occurred when her blood pressure was markedly elevated, this could represent ischemia. I do not know the pulse that occurred at that time, but interestingly, in the emergency room, when she apparently developed symptoms again transiently for which she was given nitroglycerin and everything, she had a tachycardic rate at 150 and with that tachycardic rate, amazingly she had no significant ST segment elevation of severe ischemia/injury that occurred at a heart rate that was 114% of age- prediced maximal heart rate. The nuclear images are difficult to interpret in light of potential artifact with attenuation corrected, but at this point in time, she is on absolutely no antianginal medications according to what I can see. Given her age, her obviously frail state, and the fact that she is on no medications for angina and she has an intermediate risk and not a high risk nuclear stress test, I would favor starting her on antianginal medications seeing how she is fairing on them, watching carefully for exacerbation of chronic obstructive pulmonary disease with beta blockers and perhaps even slight worsening of the ND interval , which is borderline first degree at this point. I would then have her up and about once her heart rate is well controlled in the 60s and 70s and see how she feels up and about. If we can provoke significant jaw discomfort or chest discomfort, I would then most likely favor that we potentially could consider a heart catheterization with the inherent risks given her age. We will see how she fairs over the weekend as the hospitalist titrates her medication up and she is followed by Dr. Rose, the non- language therapist on-call for non-interventional patients. As always, thank you very much for having asked me to see the patient in consultation and our group will follow her along with you. CC: Dr. Zhao Rodríguez; Dr. Aguila Varghese at [facility]; Dr. Misael Larios at [facility] * [id number]/CPS #: [id number]
[2016-07-01] MEDS: Levothyroxine TAB* 75 MCG TAB PO SCH (06:00)
[2016-07-01] MEDS: Heparin VIAL(*) 5000 UNITS/ML VIAL (FIVE THOUSAND) SUBCUT SCH ×3 (06:01→21:23)
[2016-07-01 06:02] LABS: Hematocrit 41 % (35-47); Hemoglobin 13.5 g/dl (12.0-16.0); Mean Corpuscular HGB Conc 33 g/dl (31-36); Mean Corpuscular Hemoglobin 29 pg (27-31); Mean Corpuscular Volume 87 fL (80-97); Mean Platelet Volume 9 um3 (7.4-10.4); Red Blood Count 4.67 10^6/ul (4.0-5.4); Red Cell Distribution Width 14 % (10.5-15); White Blood Count 6.3 10^3/ul (3.5-10.8)
[2016-07-01 06:21] LABS: Calcium 8.9 mg/dL (8.6-10.3); EGFR African American 54.7 (>60); EGFR Non-African American 42.5 (>60); Potassium 4.6 mmol/L (3.5-5.0)
[2016-07-01] MEDS: Ipratropium HFA INHALER(NF) (ALTERNATIVE = NEBS) INH SCH ×3 (09:59→21:29)
[2016-07-01] MEDS: ALPRAZolam TAB* 0.25 MG PO PRN (10:07)
[2016-07-01] MEDS: CMCS:Simvastatin TAB(NF) 20 MG TAB PO SCH (10:08)
[2016-07-01] MEDS: amLODIPine TAB* 5 MG PO SCH (10:08)
[2016-07-01] MEDS: Aspirin EC Low Dose* 81 MG TAB.EC PO SCH (10:08)
[2016-07-01] MEDS: Fluorometholone 0.1% OPTH.SUS* 5 ML BTL BOTH EYES SCH (10:08)
[2016-07-01] MEDS: Metoprolol Tartrate TAB* 25 MG PO SCH ×2 (10:08→21:20)
[2016-07-01] MEDS ORDERED: Metoprolol Tartrate TAB* 25 MG PO ONE (11:27)
[2016-07-01] MEDS ORDERED: Loperamide CAP* 2 MG PO PRN (11:42)
--- NOTE | 2016-07-01 11:44 | PN ---
Subjective Date of Service: 07/01/16 Interval History: Patient seen and examined at bedside. She is OOB to chair. She states she was up ambulating in halls this morning and denies any jaw, shoulder, chest pain, SOB. She denies abd pain, n/v. She reports that on occasion, her colostomy changes stool consistency, and she utilizes Immodium for this. She would like to to be available. She is also concerned about being off her torsemide. No other complaints. Telemetry: SR 60s-80s Family History: Unchanged from Admission Social History: Unchanged from Admission Past Medical History: Unchanged from Admission Objective Active Medications: Acetaminophen (Tylenol Tab*) 650 mg PO Q6H PRN PRN Reason: FEVER/PAIN Last Admin: 06/30/16 00:34 Dose: 650 mg Alprazolam (Xanax Tab*) 0.125 mg PO QID PRN PRN Reason: ANXIETY Last Admin: 07/01/16 10:07 Dose: 0.125 mg Amlodipine Besylate (Norvasc Tab*) 5 mg PO DAILY ON LICENSE OF [facility] Last Admin: 07/01/16 10:08 Dose: 5 mg Aspirin (Aspirin Ec Low Dose*) 81 mg PO DAILY ON LICENSE OF [facility] Last Admin: 07/01/16 10:08 Dose: 81 mg Calcium Carbonate (Tums*) 500 mg PO QID PRN PRN Reason: INDIGESTION Fluorometholone Acetate (Fml 0.1% Opth.Susp*) 1 drop BOTH EYES DAILY ON LICENSE OF [facility] Last Admin: 07/01/16 10:08 Dose: 1 drop Heparin Sodium (Porcine) (Heparin Vial(*)) 5,000 units SUBCUT Q8HR ON LICENSE OF [facility] Last Admin: 07/01/16 06:01 Dose: 5,000 units Ipratropium [place] (Atrovent Hfa Inhaler*) 2 puff INH TID ON LICENSE OF [facility] Last Admin: 07/01/16 09:59 Dose: 2 puff Latanoprost (Xalatan 0.005%*) 1 drop BOTH EYES BEDTIME ON LICENSE OF [facility] Last Admin: 06/30/16 20:49 Dose: 1 drop Levothyroxine Sodium (Synthroid Tab*) 75 mcg PO 0600 ON LICENSE OF [facility] Last Admin: 07/01/16 06:00 Dose: 75 mcg Loperamide HCl (Imodium Cap*) 2 mg PO .SEE DIRECTIONS PRN PRN Reason: DIARRHEA Metoprolol Tartrate (Lopressor Tab*) 25 mg PO Q12HR ON LICENSE OF [facility] Polyvinyl Alcohol (Polyvinyl Alcohol 1.4% Opth*) 1 drop LEFT EYE BEDTIME ON LICENSE OF [facility] Last Admin: 06/30/16 20:48 Dose: 1 drop Polyvinyl Alcohol (Polyvinyl Alcohol 1.4% Opth*) 1 drop BOTH EYES QID PRN PRN Reason: dry eyes Last Admin: 06/29/16 09:40 Dose: 1 drop Simvastatin (Zocor(Nf)) 20 mg PO DAILY WITH MEAL ON LICENSE OF [facility] Last Admin: 07/01/16 10:08 Dose: 20 mg Torsemide (Demadex*) 20 mg PO DAILY ON LICENSE OF [facility] Vital Signs 06/30/16 06/30/16 06/30/16 15:16 15:43 16:00 Temperature Pulse Rate Respiratory 18 18 Rate Blood Pressure (mmHg) O2 Sat by Pulse 94 Oximetry 06/30/16 06/30/16 06/30/16 17:46 19:53 20:00 Temperature 97.9 F Pulse Rate 94 Respiratory 18 18 Rate Blood Pressure 153/85 (mmHg) O2 Sat by Pulse 100 Oximetry 06/30/16 07/01/16 07/01/16 23:56 03:52 07:36 Temperature 97.9 F 97.6 F 97.8 F Pulse Rate 72 73 85 Respiratory 16 16 18 Rate Blood Pressure 129/68 122/70 145/84 (mmHg) O2 Sat by Pulse 94 95 97 Oximetry 07/01/16 07/01/16 10:05 10:07 Temperature Pulse Rate Respiratory 18 Rate Blood Pressure (mmHg) O2 Sat by Pulse 97 Oximetry Oxygen Devices in Use Now: None Appearance: Elderly female, OOB to chair, in NAD Eyes: PERRLA Ears/Nose/Mouth/Throat: Clear Oropharnyx, Mucous Membranes Moist Neck: NL Appearance and Movements; NL JVP Respiratory: Symmetrical Chest Expansion and Respiratory Effort, Clear to Auscultation Cardiovascular: NL Sounds; No Murmurs; No JVD, RRR, No Edema Abdominal: NL Sounds; No Tenderness; No Distention, - - LLQ colostomy, stoma beefy red Extremities: No Edema Skin: No Rash or Ulcers Neurological: Alert and Oriented x 3 Lines/Tubes/Other Access: Clean, Dry and Intact Peripheral IV Nutrition: Taking PO's Result Diagrams: 07/01/16 05:37 07/01/16 05:37 Additional Lab and Data: Lab Results 06/28/16 06/28/16 Range/Units 16:20 16:20 WBC 8.1 (3.5-10.8) 10^3/ul RBC 4.80 (4.0-5.4) 10^6/ul Hgb 13.9 (12.0-16.0) g/dl Hct 42 (35-47) % MCV 87 (80-97) fL MCH 29 (27-31) pg MCHC 33 (31-36) g/dl RDW 14 (10.5-15) % Plt Count 226 (150-450) 10^3/ul MPV 9 (7.4-10.4) um3 Neut % (Auto) 62.3 (38-83) % Lymph % (Auto) 22.3 L (25-47) % [place] % (Auto) 8.8 (1-9) % Eos % (Auto) 5.6 (0-6) % Baso % (Auto) 1.0 (0-2) % Absolute Neuts (auto) 5.1 (1.5-7.7) 10^3/ul Absolute Lymphs (auto) 1.8 (1.0-4.8) 10^3/ul Absolute Monos (auto) 0.7 (0-0.8) 10^3/ul Absolute Eos (auto) 0.5 (0-0.6) 10^3/ul Absolute Basos (auto) 0.1 (0-0.2) 10^3/ul Absolute Nucleated RBC 0 10^3/ul Nucleated RBC % 0 INR (Anticoag Therapy) 0.89 (0.89-1.11) APTT 32.3 (26.0-36.3) seconds Assess/Plan/Problems-Billing Assessment: 85 yo female with PMH of CAD s/p stenting, hx of colon cancer s/p colectomy, RA, CHF, HTN, anxiety, COPD who presented to the ED from [place] with jaw pain admitted for CP r/o ACS - Patient Problems (1) Chest pain Code(s): R07.9 - CHEST PAIN, UNSPECIFIED Comment: - Lisinopril stopped, and pt started on metoprolol and amlodipine, which she is tolerating well. Increased metoprolol due to elevated HR. Patient denies CP or other concerning symptoms with ambulation. - Medical management with close monitoring, per Dr. Swanson's recommendations - hx of CAD s/p bare metal stent placement LAD 12/11/2011 - Pt initially refused Nuc stress test then changed her mind and underwent a stress test 06/30: Nuclear stress test - EKG portion no evidence myocardial ischemia by EKG criteria. Nuclear med placing pt at Indeterminate risk showing moderate size reversible defect involving the inferolateral wall but most likely attenuation No further symptoms. Run of SVT 06/[address] depression - TTE showing global left ventricular wall motion and contractility wnls, LVEF 60-65% (increased from 45-50% 2013), no significant valvular disease - continue ASA - Awaiting notes from Dr. 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 - Per Dr. Rose's note, patient should f/u with Dr. Swanson as an outpatient as needed. (2) History of COPD Code(s): Z87.09 - PERSONAL HISTORY OF OTHER DISEASES OF THE RESPIRATORY SYSTEM Comment: Stable. Continue home inhalers. (3) Hx of congestive heart failure Code(s): Z86.79 - PERSONAL HISTORY OF OTHER DISEASES OF THE CIRCULATORY SYSTEM Comment: Stable, asymptomatic. Creatinine within baseline. Restart torsemide tomorrow. (4) History of hypertension Code(s): Z86.79 - PERSONAL HISTORY OF OTHER DISEASES OF THE CIRCULATORY SYSTEM Comment: Normotensive. Continue amlodipine, metoprolol. (5) History of hypothyroidism Code(s): Z86.39 - PERSONAL HISTORY OF ENDO, NUTRITIONAL AND METABOLIC DISEASE Comment: TSH WNL, continue levothyroxine. (6) CKD (chronic kidney disease) Code(s): N18.9 - CHRONIC KIDNEY DISEASE, UNSPECIFIED Comment: Creatinine within baseline. (7) Anxiety Code(s): F41.9 - ANXIETY DISORDER, UNSPECIFIED Comment: Continue alprazolam. (8) History of colon cancer Code(s): Z85.038 - PERSONAL HISTORY OF MALIGNANT NEOPLASM OF LARGE INTESTINE Comment: S/p colectomy With colostomy, due to diverticulitis. (9) DVT prophylaxis Code(s): [id number] - Comment: SQ heparin Status and Disposition: Inpatient. Patient tolerating new medications. Potential d/c tomorrow with outpatient follow-up.
[2016-07-01] MEDS: Latanoprost 0.005%* 2.5 ml BTL BOTH EYES SCH (21:22)
[2016-07-01] MEDS: Artificial Tears* 15 ML BTL LEFT EYE SCH (21:23)
[2016-07-02] MEDS: Levothyroxine TAB* 75 MCG TAB PO SCH (06:06)
[2016-07-02] MEDS: Heparin VIAL(*) 5000 UNITS/ML VIAL (FIVE THOUSAND) SUBCUT SCH ×3 (06:07→21:09)
[2016-07-02] MEDS: ALPRAZolam TAB* 0.25 MG PO PRN (06:52)
[2016-07-02] MEDS: Aspirin EC Low Dose* 81 MG TAB.EC PO SCH (08:49)
[2016-07-02] MEDS: Fluorometholone 0.1% OPTH.SUS* 5 ML BTL BOTH EYES SCH (08:49)
[2016-07-02] MEDS: CMCS:Simvastatin TAB(NF) 20 MG TAB PO SCH (08:49)
[2016-07-02] MEDS: Torsemide TAB* 20 MG PO SCH (08:49)
[2016-07-02] MEDS: Metoprolol Tartrate TAB* 25 MG PO SCH ×2 (08:49→21:09)
[2016-07-02] MEDS: amLODIPine TAB* 5 MG PO SCH (08:49)
[2016-07-02] MEDS: Ipratropium HFA INHALER(NF) (ALTERNATIVE = NEBS) INH SCH ×3 (09:23→20:43)
--- NOTE | 2016-07-02 10:47 | PN ---
Subjective Date of Service: 07/02/16 Interval History: Patient seen and examined at bedside. She denies CP, abd pain, n/v. She reports feeling weaker, as she does not move around as much here, and is concerned as she is from [facility] and needs to be able to ambulate to her meals. She states that she does still get SOB with exertion. Patient also reports nasal and ear congestion and is requesting nasal spray. Telemetry: SR 60s-80s Family History: Unchanged from Admission Social History: Unchanged from Admission Past Medical History: Unchanged from Admission Objective Active Medications: Acetaminophen (Tylenol Tab*) 650 mg PO Q6H PRN PRN Reason: FEVER/PAIN Last Admin: 06/30/16 00:34 Dose: 650 mg Alprazolam (Xanax Tab*) 0.125 mg PO QID PRN PRN Reason: ANXIETY Last Admin: 07/02/16 06:52 Dose: 0.125 mg Amlodipine Besylate (Norvasc Tab*) 5 mg PO DAILY [facility] Last Admin: 07/02/16 08:49 Dose: 5 mg Aspirin (Aspirin Ec Low Dose*) 81 mg PO DAILY [facility] Last Admin: 07/02/16 08:49 Dose: 81 mg Calcium Carbonate (Tums*) 500 mg PO QID PRN PRN Reason: INDIGESTION Fluorometholone Acetate (Fml 0.1% Opth.Susp*) 1 drop BOTH EYES DAILY [facility] Last Admin: 07/02/16 08:49 Dose: 1 drop Fluticasone Propionate (Flonase Nasal [place] 50mcg*) 2 spray BOTH NARES DAILY [facility] Heparin Sodium (Porcine) (Heparin Vial(*)) 5,000 units SUBCUT Q8HR [facility] Last Admin: 07/02/16 06:07 Dose: 5,000 units Ipratropium [place] (Atrovent Hfa Inhaler*) 2 puff INH TID [facility] Last Admin: 07/02/16 09:23 Dose: 2 puff Latanoprost (Xalatan 0.005%*) 1 drop BOTH EYES BEDTIME [facility] Last Admin: 07/01/16 21:22 Dose: 1 drop Levothyroxine Sodium (Synthroid Tab*) 75 mcg PO 0600 [facility] Last Admin: 07/02/16 06:06 Dose: 75 mcg Loperamide HCl (Imodium Cap*) 2 mg PO .SEE DIRECTIONS PRN PRN Reason: DIARRHEA Last Admin: 07/01/16 12:36 Dose: 2 mg Metoprolol Tartrate (Lopressor Tab*) 25 mg PO Q12HR [facility] Last Admin: 07/02/16 08:49 Dose: 25 mg Polyvinyl Alcohol (Polyvinyl Alcohol 1.4% Opth*) 1 drop LEFT EYE BEDTIME [facility] Last Admin: 07/01/16 21:23 Dose: 1 drop Polyvinyl Alcohol (Polyvinyl Alcohol 1.4% Opth*) 1 drop BOTH EYES QID PRN PRN Reason: dry eyes Last Admin: 06/29/16 09:40 Dose: 1 drop Simvastatin (Zocor(Nf)) 20 mg PO DAILY WITH MEAL [facility] Last Admin: 07/02/16 08:49 Dose: 20 mg Torsemide (Demadex*) 20 mg PO DAILY [facility] Last Admin: 07/02/16 08:49 Dose: 20 mg Vital Signs 07/01/16 07/01/16 07/01/16 12:00 12:36 14:36 Temperature 98.1 F Pulse Rate 79 Respiratory 18 18 18 Rate Blood Pressure 107/70 (mmHg) O2 Sat by Pulse 95 Oximetry 07/01/16 07/01/16 07/01/16 15:25 19:22 20:00 Temperature 97.9 F 97.7 F Pulse Rate 73 85 Respiratory 17 18 16 Rate Blood Pressure 129/68 159/79 (mmHg) O2 Sat by Pulse 95 97 Oximetry 07/01/16 07/01/16 07/02/16 21:29 23:53 03:44 Temperature 97.4 F 97.7 F Pulse Rate 64 67 Respiratory 16 16 Rate Blood Pressure 126/64 124/73 (mmHg) O2 Sat by Pulse 96 95 95 Oximetry 07/02/16 07/02/16 07/02/16 06:52 06:55 07:16 Temperature 97.9 F Pulse Rate 77 Respiratory 18 18 18 Rate Blood Pressure 123/70 (mmHg) O2 Sat by Pulse 95 Oximetry 07/02/16 08:52 Temperature Pulse Rate Respiratory 18 Rate Blood Pressure (mmHg) O2 Sat by Pulse Oximetry Oxygen Devices in Use Now: None Appearance: Elderly female, lying in bed, in NAD Eyes: PERRLA Ears/Nose/Mouth/Throat: Clear Oropharnyx, Mucous Membranes Moist Neck: NL Appearance and Movements; NL JVP Respiratory: Symmetrical Chest Expansion and Respiratory Effort, Clear to Auscultation Cardiovascular: NL Sounds; No Murmurs; No JVD, RRR Abdominal: NL Sounds; No Tenderness; No Distention - LLQ colostomy Extremities: No Edema Skin: No Rash or Ulcers Neurological: Alert and Oriented x 3, NL Gait, NL Muscle Strength and Tone Lines/Tubes/Other Access: Clean, Dry and Intact Peripheral IV Nutrition: Taking PO's Result Diagrams: 07/01/16 05:37 07/01/16 05:37 Additional Lab and Data: Lab Results 06/28/16 06/28/16 Range/Units 16:20 16:20 WBC 8.1 (3.5-10.8) 10^3/ul RBC 4.80 (4.0-5.4) 10^6/ul Hgb 13.9 (12.0-16.0) g/dl Hct 42 (35-47) % MCV 87 (80-97) fL MCH 29 (27-31) pg MCHC 33 (31-36) g/dl RDW 14 (10.5-15) % Plt Count 226 (150-450) 10^3/ul MPV 9 (7.4-10.4) um3 Neut % (Auto) 62.3 (38-83) % Lymph % (Auto) 22.3 L (25-47) % [place] % (Auto) 8.8 (1-9) % Eos % (Auto) 5.6 (0-6) % Baso % (Auto) 1.0 (0-2) % Absolute Neuts (auto) 5.1 (1.5-7.7) 10^3/ul Absolute Lymphs (auto) 1.8 (1.0-4.8) 10^3/ul Absolute Monos (auto) 0.7 (0-0.8) 10^3/ul Absolute Eos (auto) 0.5 (0-0.6) 10^3/ul Absolute Basos (auto) 0.1 (0-0.2) 10^3/ul Absolute Nucleated RBC 0 10^3/ul Nucleated RBC % 0 INR (Anticoag Therapy) 0.89 (0.89-1.11) APTT 32.3 (26.0-36.3) seconds Assess/Plan/Problems-Billing Assessment: 85 yo female with PMH of CAD s/p stenting, hx of colon cancer s/p colectomy, RA, CHF, HTN, anxiety, COPD who presented to the ED from [place] with jaw pain admitted for CP r/o ACS - Patient Problems (1) Chest pain Code(s): R07.9 - CHEST PAIN, UNSPECIFIED Comment: Continue metoprolol and amlodipine, which she is tolerating well. Patient denies CP or other concerning symptoms with ambulation. Medical management with close monitoring, per Dr. Swanson's recommendations Hx of CAD s/p bare metal stent placement LAD 12/11/2011 - Pt initially refused Nuc stress test then changed her mind and underwent a stress test 06/30: Nuclear stress test - EKG portion no evidence myocardial ischemia by EKG criteria. Nuclear med placing pt at Indeterminate risk showing moderate size reversible defect involving the inferolateral wall but most likely attenuation No further symptoms. Run of SVT 06/[address] depression - TTE showing global left ventricular wall motion and contractility wnls, LVEF 60-65% (increased from 45-50% 2013), no significant valvular disease - continue ASA - Awaiting notes from Dr. 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 - Per Dr. Rose's note, patient should f/u with Dr. Swanson as an outpatient as needed. (2) History of COPD Code(s): Z87.09 - PERSONAL HISTORY OF OTHER DISEASES OF THE RESPIRATORY SYSTEM Comment: Stable. Continue home inhalers. (3) Hx of congestive heart failure Code(s): Z86.79 - PERSONAL HISTORY OF OTHER DISEASES OF THE CIRCULATORY SYSTEM Comment: Stable, asymptomatic. Creatinine within baseline. Continue Torsemide. (4) History of hypertension Code(s): Z86.79 - PERSONAL HISTORY OF OTHER DISEASES OF THE CIRCULATORY SYSTEM Comment: Normotensive. Continue amlodipine, metoprolol. (5) History of hypothyroidism Code(s): Z86.39 - PERSONAL HISTORY OF ENDO, NUTRITIONAL AND METABOLIC DISEASE Comment: TSH WNL, continue levothyroxine. (6) CKD (chronic kidney disease) Code(s): N18.9 - CHRONIC KIDNEY DISEASE, UNSPECIFIED Comment: Creatinine within baseline. (7) Anxiety Code(s): F41.9 - ANXIETY DISORDER, UNSPECIFIED Comment: Continue alprazolam. (8) History of colon cancer Code(s): Z85.038 - PERSONAL HISTORY OF MALIGNANT NEOPLASM OF LARGE INTESTINE Comment: S/p colectomy With colostomy, due to diverticulitis. (9) DVT prophylaxis Code(s): [id number] - Comment: SQ heparin Status and Disposition: Inpatient. Patient tolerating new medications. Plan for d/c to [place] tomorrow.
[2016-07-02] MEDS: Fluticasone NASAL SPRAY 50MCG* 16 gm SPRAY BTL BOTH NARES SCH (11:07)
[2016-07-02] MEDS: Acetaminophen TAB* 325 MG PO PRN (15:49)
[2016-07-02] MEDS: Latanoprost 0.005%* 2.5 ml BTL BOTH EYES SCH (21:10)
[2016-07-02] MEDS: Artificial Tears* 15 ML BTL LEFT EYE SCH (21:11)
[2016-07-03] MEDS: ALPRAZolam TAB* 0.25 MG PO PRN ×2 (02:19→10:46)
[2016-07-03] MEDS: Levothyroxine TAB* 75 MCG TAB PO SCH (05:36)
[2016-07-03] MEDS: Heparin VIAL(*) 5000 UNITS/ML VIAL (FIVE THOUSAND) SUBCUT SCH (05:36)
[2016-07-03] MEDS ORDERED: Ondansetron TAB* 4 MG PO PRN (08:57)
[2016-07-03] MEDS: Torsemide TAB* 20 MG PO SCH (09:17)
[2016-07-03] MEDS: Aspirin EC Low Dose* 81 MG TAB.EC PO SCH (09:17)
[2016-07-03] MEDS: amLODIPine TAB* 5 MG PO SCH (09:17)
[2016-07-03] MEDS: Metoprolol Tartrate TAB* 25 MG PO SCH (09:17)
[2016-07-03] MEDS: Fluticasone NASAL SPRAY 50MCG* 16 gm SPRAY BTL BOTH NARES SCH (09:21)
[2016-07-03] MEDS: Fluorometholone 0.1% OPTH.SUS* 5 ML BTL BOTH EYES SCH (09:22)
[2016-07-03] MEDS: Ipratropium HFA INHALER(NF) (ALTERNATIVE = NEBS) INH SCH (09:22)
--- NOTE | 2016-07-03 09:27 | PN ---
Subjective Date of Service: 07/03/16 Interval History: Patient seen and examined at bedside. She is OOB to chair. She denies CP, SOB, abd pain, fever/chills. She has some mild nausea this morning following breakfast, stating that is is normal and takes Zofran prn at home when this occurs. She worries about taking new medications but understands she should have follow-up with her PCP and rehabilitation attendant. Patient in agreement with plan for discharge to [place] today. Family History: Unchanged from Admission Social History: Unchanged from Admission Past Medical History: Unchanged from Admission Objective Active Medications: Acetaminophen (Tylenol Tab*) 650 mg PO Q6H PRN PRN Reason: FEVER/PAIN Last Admin: 07/02/16 15:49 Dose: 650 mg Alprazolam (Xanax Tab*) 0.125 mg PO QID PRN PRN Reason: ANXIETY Last Admin: 07/03/16 02:19 Dose: 0.125 mg Amlodipine Besylate (Norvasc Tab*) 5 mg PO DAILY [facility] Last Admin: 07/03/16 09:17 Dose: 5 mg Aspirin (Aspirin Ec Low Dose*) 81 mg PO DAILY [facility] Last Admin: 07/03/16 09:17 Dose: 81 mg Calcium Carbonate (Tums*) 500 mg PO QID PRN PRN Reason: INDIGESTION Fluorometholone Acetate (Fml 0.1% Opth.Susp*) 1 drop BOTH EYES DAILY [facility] Last Admin: 07/03/16 09:22 Dose: 1 drop Fluticasone Propionate (Flonase Nasal [place] 50mcg*) 2 spray BOTH NARES DAILY [facility] Last Admin: 07/03/16 09:21 Dose: 2 spray Heparin Sodium (Porcine) (Heparin Vial(*)) 5,000 units SUBCUT Q8HR [facility] Last Admin: 07/03/16 05:36 Dose: 5,000 units Ipratropium [place] (Atrovent Hfa Inhaler*) 2 puff INH TID [facility] Last Admin: 07/03/16 09:22 Dose: 2 puff Latanoprost (Xalatan 0.005%*) 1 drop BOTH EYES BEDTIME [facility] Last Admin: 07/02/16 21:10 Dose: 1 drop Levothyroxine Sodium (Synthroid Tab*) 75 mcg PO 0600 [facility] Last Admin: 07/03/16 05:36 Dose: 75 mcg Loperamide HCl (Imodium Cap*) 2 mg PO .SEE DIRECTIONS PRN PRN Reason: DIARRHEA Last Admin: 07/01/16 12:36 Dose: 2 mg Metoprolol Tartrate (Lopressor Tab*) 25 mg PO Q12HR [facility] Last Admin: 07/03/16 09:17 Dose: 25 mg Ondansetron HCl (Zofran Tab*) 4 mg PO Q6H PRN PRN Reason: NAUSEA Polyvinyl Alcohol (Polyvinyl Alcohol 1.4% Opth*) 1 drop LEFT EYE BEDTIME [facility] Last Admin: 07/02/16 21:11 Dose: 1 drop Polyvinyl Alcohol (Polyvinyl Alcohol 1.4% Opth*) 1 drop BOTH EYES QID PRN PRN Reason: dry eyes Last Admin: 06/29/16 09:40 Dose: 1 drop Simvastatin (Zocor(Nf)) 20 mg PO DAILY WITH MEAL [facility] Last Admin: 07/02/16 08:49 Dose: 20 mg Torsemide (Demadex*) 20 mg PO DAILY [facility] Last Admin: 07/03/16 09:17 Dose: 20 mg Vital Signs 07/02/16 07/02/16 07/02/16 15:27 20:00 21:06 Temperature 97.6 F Pulse Rate 75 78 Respiratory 18 18 Rate Blood Pressure 115/58 121/60 (mmHg) O2 Sat by Pulse 94 Oximetry 07/02/16 07/02/16 07/02/16 21:45 21:50 23:06 Temperature 97.3 F 97.3 F Pulse Rate 70 70 Respiratory 16 16 17 Rate Blood Pressure 133/73 133/73 (mmHg) O2 Sat by Pulse 93 93 Oximetry 07/02/16 07/02/16 07/03/16 23:15 23:27 02:19 Temperature 97.8 F Pulse Rate 60 Respiratory 17 16 16 Rate Blood Pressure 119/67 (mmHg) O2 Sat by Pulse 91 Oximetry 07/03/16 07/03/16 07/03/16 03:45 04:19 07:13 Temperature 97.9 F 97.7 F Pulse Rate 64 66 Respiratory 16 16 17 Rate Blood Pressure 110/59 145/69 (mmHg) O2 Sat by Pulse 93 92 Oximetry 07/03/16 07:18 Temperature Pulse Rate Respiratory 17 Rate Blood Pressure (mmHg) O2 Sat by Pulse Oximetry Oxygen Devices in Use Now: None Appearance: Elderly female, OOB to chair, eating breakfast, in NAD Eyes: PERRLA Ears/Nose/Mouth/Throat: Clear Oropharnyx, Mucous Membranes Moist Neck: NL Appearance and Movements; NL JVP Respiratory: Symmetrical Chest Expansion and Respiratory Effort, Clear to Auscultation Cardiovascular: NL Sounds; No Murmurs; No JVD, RRR Abdominal: NL Sounds; No Tenderness; No Distention, - - left colostomy Extremities: No Edema Neurological: Alert and Oriented x 3, NL Muscle Strength and Tone Lines/Tubes/Other Access: Clean, Dry and Intact Peripheral IV Result Diagrams: 07/01/16 05:37 07/01/16 05:37 Additional Lab and Data: Lab Results 06/28/16 06/28/16 Range/Units 16:20 16:20 WBC 8.1 (3.5-10.8) 10^3/ul RBC 4.80 (4.0-5.4) 10^6/ul Hgb 13.9 (12.0-16.0) g/dl Hct 42 (35-47) % MCV 87 (80-97) fL MCH 29 (27-31) pg MCHC 33 (31-36) g/dl RDW 14 (10.5-15) % Plt Count 226 (150-450) 10^3/ul MPV 9 (7.4-10.4) um3 Neut % (Auto) 62.3 (38-83) % Lymph % (Auto) 22.3 L (25-47) % [place] % (Auto) 8.8 (1-9) % Eos % (Auto) 5.6 (0-6) % Baso % (Auto) 1.0 (0-2) % Absolute Neuts (auto) 5.1 (1.5-7.7) 10^3/ul Absolute Lymphs (auto) 1.8 (1.0-4.8) 10^3/ul Absolute Monos (auto) 0.7 (0-0.8) 10^3/ul Absolute Eos (auto) 0.5 (0-0.6) 10^3/ul Absolute Basos (auto) 0.1 (0-0.2) 10^3/ul Absolute Nucleated RBC 0 10^3/ul Nucleated RBC % 0 INR (Anticoag Therapy) 0.89 (0.89-1.11) APTT 32.3 (26.0-36.3) seconds Assess/Plan/Problems-Billing Assessment: 85 yo female with PMH of CAD s/p stenting, hx of colon cancer s/p colectomy, RA, CHF, HTN, anxiety, COPD who presented to the ED from [place] with jaw pain admitted for CP r/o ACS - Patient Problems (1) Chest pain Code(s): R07.9 - CHEST PAIN, UNSPECIFIED Comment: Continues to deny chest pain, shortness of breath, jaw pain or other concerning symptoms. Continue metoprolol and amlodipine, which she is tolerating well. Continue ASA. Patient denies CP or other concerning symptoms with ambulation. Medical management with close monitoring, per Dr. Swanson's recommendations Hx of CAD s/p bare metal stent placement LAD 12/11/2011 Outpatient follow-up as needed with Dr. Swanson, as patient has recently moved to [place] - Pt initially refused Nuc stress test then changed her mind and underwent a stress test 06/30: Nuclear stress test - EKG portion no evidence myocardial ischemia by EKG criteria. Nuclear med placing pt at Indeterminate risk showing moderate size reversible defect involving the inferolateral wall but most likely attenuation No further symptoms. Run of SVT 06/[address] - TTE showing global left ventricular wall motion and contractility wnls, LVEF 60-65% (increased from 45-50% 2013), no significant valvular disease (2) History of COPD Code(s): Z87.09 - PERSONAL HISTORY OF OTHER DISEASES OF THE RESPIRATORY SYSTEM Comment: Stable. Continue home inhalers. (3) Hx of congestive heart failure Code(s): Z86.79 - PERSONAL HISTORY OF OTHER DISEASES OF THE CIRCULATORY SYSTEM Comment: Stable, asymptomatic. Creatinine within baseline. Continue Torsemide. (4) History of hypertension Code(s): Z86.79 - PERSONAL HISTORY OF OTHER DISEASES OF THE CIRCULATORY SYSTEM Comment: Normotensive. Continue amlodipine, metoprolol. (5) History of hypothyroidism Code(s): Z86.39 - PERSONAL HISTORY OF ENDO, NUTRITIONAL AND METABOLIC DISEASE Comment: TSH WNL, continue levothyroxine. (6) CKD (chronic kidney disease) Code(s): N18.9 - CHRONIC KIDNEY DISEASE, UNSPECIFIED Comment: Creatinine within baseline. (7) Anxiety Code(s): F41.9 - ANXIETY DISORDER, UNSPECIFIED Comment: Continue alprazolam. (8) History of colon cancer Code(s): Z85.038 - PERSONAL HISTORY OF MALIGNANT NEOPLASM OF LARGE INTESTINE Comment: S/p colectomy With colostomy, due to diverticulitis. (9) DVT prophylaxis Code(s): [id number] - Comment: SQ heparin Status and Disposition: Inpatient. Patient tolerating new medications. D/c to home at [facility].
--- NOTE | 2016-07-03 10:50 | RAD ---
Edited for charges. Indication: Chest pain. Myocardial perfusion scan was performed utilizing 1 day protocol. 10.04 mCi of technetium 99 and tetrofosmin was injected for the rest portion of the study. Pharmacological stress was applied and 25.06 mCi of technetium 99m tetrofosmin was injected for the stress portion of the study. On the stress images there is a moderate-sized inferolateral area of photopenia. This appears to partially reverse on the rest images. Ventricle is normal in size. Ejection fraction at stress is present. Evaluation of wall motion demonstrates no definite focal wall motion. IMPRESSION: There appears to be moderate size reversible defect involving the inferolateral wall. Normal ejection fraction. ASSESSMENT: Intermediate risk Based on imaging criteria from ACC/AHA 2002 Guideline Update for the Management of Patients With Chronic Stable Angina Table 23. Noninvasive Risk Stratification. ADDENDUM Although the lateral defect appears to partially correct on the attenuation correction images there is still relative hypoperfusion in the lateral wall both on the nonattenuated corrected images and attenuated corrected images. This may be due to slight difference in position on the stress and rest images and certainly the defect could be artifactual from breast attenuation. Correlation with clinical suspicion is suggested. MTDD
[2016-07-03 11:59] VITALS: BP 96/61
--- NOTE | 2016-07-04 00:23 | DS ---
MEDICINE DISCHARGE SUMMARY: DATE OF ADMISSION: 06/28/16 DATE OF DISCHARGE: 07/03/16 PROVIDER: Trav Alfaro NP ATTENDING PHYSICIAN: Dr. Priscilla Gar * (dictated by Trav Alfaro NP) CONSULTING PHYSICIANS: Dr. Javier Swanson, Interventional Cardiology and Dr. Nitesh Rose PRIMARY CARE PHYSICIAN: Dr. Zhao Rodríguez. PRIMARY DISCHARGE DIAGNOSES: 1. Chest pain. 2. Coronary artery disease. SECONDARY DISCHARGE DIAGNOSES: 1. Hypothyroidism. 2. Hypertension. 3. History of heart failure. 4. Anxiety and depression. 5. Hyperlipidemia. 6. Osteoporosis. 7. Cardiomegaly. 8. Glaucoma. 9. Chronic obstructive pulmonary disease. 10. Atrial fibrillation. 11. Diverticulitis. MEDICATIONS AT DISCHARGE: Note the patient's lisinopril has been discontinued. New medications at discharge: 1. Amlodipine 5 mg daily. 2. Simvastatin 20 mg daily with meal. 3. Metoprolol tartrate 25 mg q.12 hours. The patient should continue previous home meds: 1. Guaifenesin 10 mL q.4 hours p.r.n. 2. Refresh eyedrops 1 drop to left eye at bedtime. 3. Zofran 4 mg q.6 hours p.r.n. 4. Loperamide 1 capsule t.i.d. p.r.n. 5. Tums 500 mg 4 times a day p.r.n. 6. Polyvinyl drops 1 drop to both eyes 4 times a day p.r.n. 7. [place] cough drops 1 lozenge q.4 hours p.r.n. 8. Nitroglycerin 0.4 mg sublingual q.5 minutes p.r.n. 9. Alprazolam 0.125 mg q.4 hours p.r.n. 10. Nasonex 600 mg q.12 hours p.r.n. 11. Latanoprost 1 drop both eyes at bedtime. 12. Atrovent inhaler 2 puffs inhaled t.i.d. 13. Torsemide 20 mg daily. 14. Fluorometholone 1 drop both eyes daily. 15. Levothyroxine 75 mcg daily. 16. Aspirin 81 mg daily. DIAGNOSTIC TESTING: During this admission, transthoracic echocardiogram on 06/16. Conclusion: Global left ventricular wall motion and contractility are within normal limits. There is normal left ventricular systolic function. The estimated ejection fraction is 60% to 65%. No significant valvular disease: The mitral leaflets and annulus have calcium present without evidence offered for stenosis. There is trace to mild mitral regurgitation. There is trace tricuspid regurgitation. Compared to the study from 08/21/13, the overall LV systolic function is better (was quoted as 45% to 50%). Nuclear medicine stress test, normal ejection fraction. EKG portion shows no evidence of myocardial ischemia by EKG criteria. Indeterminate risk showing moderate sized reversible defect involving the inferior lateral wall, but most likely attenuation. HOSPITAL COURSE: For full details, please refer to the H and P provided by nurse practitioner Inga Olvera. In summary, Ms. Jones is an 85- year-old female with a past medical history as stated above who presented to the ED for evaluation of jaw pain at home. The patient reported increased stress and has recently moved to [place] this past week. She was also noted at [place] to have elevated blood pressures and was tachycardic. She was initially treated with Xanax as she does have a history of anxiety, but given that she had this jaw discomfort, the patient decided to get a further evaluation in the emergency room. While in the emergency room, she developed sternal chest discomfort and that recurred with jaw pain. Her EKG showed sinus rhythm and a new Q-wave in aVF. Her initial troponin was 0.01. The patient was admitted for rule out of acute coronary syndrome. Both patient and her daughter initially decided to forego cardiac stress testing and opted just to have blood work checked and overnight monitoring on telemetry. However the following day, the patient still had complaints of jaw pain and chest pain and decided that she would like to have the cardiac stress test. This was scheduled for 06/30/16 with results as previously stated. Given the abnormality of the nuclear stress test, a consult was requested with Dr. Javier Swanson with Interventional Cardiology. Per Dr. Swanson, her symptoms were atypical in nature as her upper chest and shoulder discomfort only occurred at nighttime, but not during the daytime. In terms of her jaw discomfort, it seems to only occur when her blood pressure was markedly elevated, which was concerning for ischemia. It was recommended the patient be started on antianginal medications and be medically managed here in the hospital under close observation. If during her stay we could provoke significant jaw discomfort or chest discomfort even while the patient's hypertension and heart rate is controlled, then it was noted that we could perhaps pursue a cardiac catheterization. Ms. Jones was started on amlodipine and metoprolol and discontinued her lisinopril. Her metoprolol has been titrated up to 25 mg b.i.d., and she remained on amlodipine 5 mg daily. She did tolerate the addition of these medications well and had no episodes of syncope, presyncope, dizziness, lightheadedness. Her heart rate after being titrated up to 25 mg dose remains in 60s to 70s even with activity and her blood pressure is well controlled with systolics in the 110s to 130s. The patient was also rounded on by Cardiology over the weekend who agreed with the plan and felt that the patient appeared stable and should have follow up as an outpatient with Cardiology. Ms. Jones has recently moved from [facility] to [place]. She is seeking to have a new rn patient services as her previous rn patient services is in [place]. Per Dr. Rose's note, the patient can follow up with Dr. Swanson as an outpatient. While an inpatient, the patient was able to demonstrate safe ambulation around the unit with her walker and standby assist only. She has been tolerating p.o. intake and has continue to deny chest pain, jaw pain, shoulder discomfort, or any other concerning symptoms since starting her metoprolol and amlodipine. At this point in time, the patient appeared stable for discharge and is in agreement with this plan. She is very apprehensive about changing medications, but feels like she can tolerate these new medications well enough and states that she will follow up with her PCP with any further concerns. CONCERNS AT DISCHARGE: Ms. Jones will be discharged to home on 07/03/16 with a plan to follow up with her PCP later this week. She will also follow up with [facility] cardiology, who will call the patient with a followup appointment. DIET: Heart healthy diet. ACTIVITY: As tolerated. The patient was advised to use her walker. CONDITION ON DISCHARGE: Stable. DISPOSITION: To home at [facility]. TIME SPENT: Time spent on this discharge was approximately 45 minutes. Again, this is only a brief summary of the patient's hospital course of stay. For full details, please refer to the full medical record. If you have any further questions or need further assistance, please feel free to contact me at . TRAV ALFARO NP CC: Dr. Zhao Rodríguez [id number]/CPS #: [id number] DRAGAN
== END 2016-07-03 13:15 | disposition home or self-care (01) | DRG 313 ==
LOC: ED 15:53 → MEDTELE 17:54 → OBSVTOIN 06-30 15:05 → SSU 07-02 22:13
PROVIDERS: ADMIT Hospitalist; ATTEND Hospitalist
DX: R07.9 Chest pain, unspecified (principal); I25.10 Atherosclerotic heart disease of native coronary artery without angina pectoris; N17.9 Acute kidney failure, unspecified; I11.0 Hypertensive heart disease with heart failure; I50.9 Heart failure, unspecified; J44.9 Chronic obstructive pulmonary disease, unspecified; E87.1 Hypo-osmolality and hyponatremia; I48.91 Unspecified atrial fibrillation; K57.92 Diverticulitis of intestine, part unspecified, without perforation or abscess without bleeding; R68.84 Jaw pain; E03.9 Hypothyroidism, unspecified; F41.8 Other specified anxiety disorders; E78.5 Hyperlipidemia, unspecified; M81.0 Age-related osteoporosis without current pathological fracture; H40.9 Unspecified glaucoma; Z79.82 Long term (current) use of aspirin; Z95.5 Presence of coronary angioplasty implant and graft; Z79.899 Other long term (current) drug therapy; Z88.0 Allergy status to penicillin; Z88.2 Allergy status to sulfonamides; Z88.8 Allergy status to other drugs, medicaments and biological substances; Z83.3 Family history of diabetes mellitus; Z82.49 Family history of ischemic heart disease and other diseases of the circulatory system; Z80.49 Family history of malignant neoplasm of other genital organs; Z87.891 Personal history of nicotine dependence; Z85.038 Personal history of other malignant neoplasm of large intestine
CPT/HCPCS: 36415; 71010; 78452; 80048; 80053; 80061; 81003; 82553; 83605; 83874; 83880; 84443; 84484; 85025; 85610; 85730; 93005; 93017; 93306; 94640; 94760; A9270-GY; A9502; J0280; J1644; J2785

== ENCOUNTER 2016-07-19 05:05 | Emergency (ER) | payer MEDICARE ==
[2016-07-19 05:59] LABS: Hematocrit 40 % (35-47); Hemoglobin 13.5 g/dl (12.0-16.0); Mean Corpuscular HGB Conc 34 g/dl (31-36); Mean Corpuscular Hemoglobin 29 pg (27-31); Mean Corpuscular Volume 86 fL (80-97); Mean Platelet Volume 8 um3 (7.4-10.4); Red Blood Count 4.63 10^6/ul (4.0-5.4); Red Cell Distribution Width 14 % (10.5-15); White Blood Count 6.1 10^3/ul (3.5-10.8)
[2016-07-19 06:10] LABS: Albumin 4.1 g/dL (3.2-5.2); BUN/Creatinine Ratio 23.4 (8-20); Calcium 9.4 mg/dL (8.6-10.3); EGFR African American 47.4 (>60); EGFR Non-African American 36.8 (>60); Globulin 3.4 g/dL (2-4); Potassium 4.1 mmol/L (3.5-5.0); Total Bilirubin 0.4 mg/dL (0.2-1.0); Total Protein 7.5 g/dL (6.4-8.9)
--- NOTE | 2016-07-19 06:17 | ED ---
Josefina Otero Rebecca, scribed for Arturo Petty MD on 07/19/16 at 0515 . Lower Extremity - HPI Summary HPI Summary: Pt is an 85 y/o F BIBA who presents to ED c/o BLE edema. Edema began gradually 1 week ago and has been constant since onset. Associated pain is currently ranked 8/10 and characterized as aching. Pain and edema have not worsened since onset. Sx aggravated and alleviated by nothing. Denies any other sx including fever. Pt is currently on a diuretic. Refuses her Metoprolol, stating she has an allergy. Has a cardiology appointment later today. - History of Current Complaint Stated Complaint: LEG PAIN Hx Obtained From: Patient Onset of Pain: Days - 1 week ago Onset/Duration: Still Present - 1 week Severity Initially: Severe Severity Currently: Severe Pain Intensity: 8 Pain Scale Used: 0-10 Numeric Timing: Constant Location: Is Diffuse - BLE Character Of Pain: Aching Associated Signs And Symptoms: Positive: Negative. Negative: Fever Aggravating Factor(s): Nothing Alleviating Factor(s): Nothing - Allergies/Home Medications Allergies/Adverse Reactions: Allergies Allergy/AdvReac Type Severity Reaction Status Date / Time Atorvastatin [From Lipitor] Allergy Mild Vomiting Verified 07/19/16 05:33 Sulfa Antibiotics Allergy Mild Vomiting Verified 07/19/16 05:33 Penicillin G Allergy Unknown Rash Verified 07/19/16 05:33 [From Penicillin Potassium-G] Metoprolol Allergy See Comment Verified 07/19/16 05:33 Prednisone Allergy See Comment Verified 07/19/16 05:33 Home Medications: Home Medications Acetaminophen [Tylenol] 650 mg PO Q4H PRN 07/19/16 [History Confirmed 07/19/16] PMH/Surg Hx/FS Hx/Imm Hx Endocrine/Hematology History: Reports: Hx Thyroid Disease Denies: Hx Diabetes Cardiovascular History: Reports: Hx Angina, Hx Coronary Artery Disease - STENT X2, Hx Hypercholesterolemia, Hx Hypertension Denies: Hx Myocardial Infarction, Hx Pacemaker/ICD, Hx Valvular Heart Disease Respiratory History: Reports: Hx Asthma, Hx Chronic Obstructive Pulmonary Disease (COPD) GI History: Reports: Hx Diverticulosis - diverticulitis, Hx Gastroesophageal Reflux Disease, Hx Ileostomy, Other GI Disorders - colostomy 14 years History: Denies: Hx Acute Renal Failure, Hx Benign Prostatic Hyperplasia, Hx Chronic Renal Failure Musculoskeletal History: Reports: Hx Arthritis Sensory History: Reports: Hx Cataracts, Hx Contacts or Glasses, Hx Hearing Problem Denies: Hx Hearing Aid Opthamlomology History: Reports: Hx Cataracts, Hx Contacts or Glasses Neurological History: Reports: Hx Headaches Psychiatric History: Reports: Hx Anxiety, Hx Depression Denies: Hx Panic Disorder - Surgical History Surgery Procedure, Year, and Place: BOWEL RESECTION 2004 WITH COLOSTOMY; CARDIAC STENTS 2011; left eye corneal transplant ; right eye cataract removed summer 2013 Infectious Disease History: Denies: Hx Clostridium Difficile, Hx Hepatitis, Hx Human Immunodeficiency Virus (HIV), Hx Shingles, Hx Tuberculosis, Hx Known/Suspected VRE, Hx Known/ Suspected VRSA, History Other Infectious Disease - Family History Known Family History: Positive: Cardiac Disease - CAD - Social History Lives: At [facility] Alcohol Use: None Hx Substance Use: No Substance Use Type: Reports: None Hx Tobacco Use: Yes Smoking Status (MU): Former Smoker Type: Cigarettes Length of Time of Smoking/Using Tobacco: 50 YEARS Have You Smoked in the Last Year: No Review of Systems Negative: Fever Positive: Edema - BLE edema All Other Systems Reviewed And Are Negative: Yes Physical Exam Triage Information Reviewed: Yes Vital Signs On Initial Exam: Initial Vitals Temp Pulse Resp BP Pulse Ox 97.6 F 108 14 157/85 95 07/19/16 05:05 07/19/16 05:05 07/19/16 05:05 07/19/16 05:05 07/19/16 05:05 Vital Signs Reviewed: Yes Appearance: Positive: No Pain Distress, Well-Nourished Skin: Positive: Warm Eyes: Positive: RAOUL ENT: Positive: Hearing grossly normal Neck: Positive: Supple Respiratory/Lung Sounds: Positive: Clear to Auscultation, Breath Sounds Present Cardiovascular: Positive: RRR Abdomen Description: Positive: Nontender, Soft Musculoskeletal: Positive: Edema Left - tr, Edema Right - tr Neurological: Positive: Sensory/Motor Intact, Alert, Oriented to Person Place, Time Diagnostics - Vital Signs Vital Signs Temp Pulse Resp BP Pulse Ox 07/19/16 06:03 104 17 97 07/19/16 05:50 26 152/85 07/19/16 05:30 107 18 154/78 94 07/19/16 05:27 111 15 93 07/19/16 05:24 158/81 03/22/17 05:05 97.6 F 108 14 157/85 95 - Laboratory Lab Results: Lab Results 07/19/16 07/19/16 Range/Units 05:20 05:20 WBC 6.1 (3.5-10.8) 10^3/ul RBC 4.63 (4.0-5.4) 10^6/ul Hgb 13.5 (12.0-16.0) g/dl Hct 40 (35-47) % MCV 86 (80-97) fL MCH 29 (27-31) pg MCHC 34 (31-36) g/dl RDW 14 (10.5-15) % Plt Count 226 (150-450) 10^3/ul MPV 8 (7.4-10.4) um3 Neut % (Auto) 55.9 (38-83) % Lymph % (Auto) 25.9 (25-47) % [place] % (Auto) 10.9 H (1-9) % Eos % (Auto) 6.2 H (0-6) % Baso % (Auto) 1.1 (0-2) % Absolute Neuts (auto) 3.4 (1.5-7.7) 10^3/ul Absolute Lymphs (auto) 1.6 (1.0-4.8) 10^3/ul Absolute Monos (auto) 0.7 (0-0.8) 10^3/ul Absolute Eos (auto) 0.4 (0-0.6) 10^3/ul Absolute Basos (auto) 0.1 (0-0.2) 10^3/ul Absolute Nucleated RBC 0.01 10^3/ul Nucleated RBC % 0.1 Sodium 131 L (133-145) mmol/L Potassium 4.1 (3.5-5.0) mmol/L Chloride 99 L (101-111) mmol/L Carbon Dioxide 27 (22-32) mmol/L Anion Gap 5 (2-11) mmol/L BUN 32 H (6-24) mg/dL Creatinine 1.37 H (0.51-0.95) mg/dL Est GFR ( Amer) 47.4 (>60) Est GFR (Non-Af Amer) 36.8 (>60) BUN/Creatinine Ratio 23.4 H (8-20) Glucose 104 H (70-100) mg/dL Calcium 9.4 (8.6-10.3) mg/dL Total Bilirubin 0.40 (0.2-1.0) mg/dL AST 15 (13-39) U/L ALT 11 (7-52) U/L Alkaline Phosphatase 91 (34-104) U/L Total Protein 7.5 (6.4-8.9) g/dL Albumin 4.1 (3.2-5.2) g/dL Globulin 3.4 (2-4) g/dL Albumin/Globulin Ratio 1.2 (1-3) Result Diagrams: 07/19/16 05:20 07/19/16 05:20 Lab Statement: Any lab studies that have been ordered have been reviewed, and results considered in the medical decision making process. - Radiology CXR Radiology Interpretation Completed By: ED Physician - Cardiomegaly. Re-Evaluation - Re-Evaluation First Eval Re-Evaluation Time: 06:15 Change: Unchanged Comment: Discussed findings and current D/C plan with pt. She understands and agrees. Lower Extremity Course/Dx - Course Assessment/Plan: Pt is an 85 y/o F BIBA with a CC of BLE edema and associated pain for 1 week. Denies any other sx including fever. CXR reveals cardiomegaly. Pt will be D/C to home with a dx of edema with a followup with Dr. Swanson. - Diagnoses Provider Diagnoses: Edema Discharge - Discharge Plan Condition: Stable Disposition: HOME Patient Education Materials: Leg Edema (ED) Referrals: Javier Swanson MD [Medical Doctor] - 07/19/16 (Follow up with your reconciliation coordinator later today, as scheduled. ) The documentation as recorded by the Josefina lauren Rebecca accurately reflects the service I personally performed and the decisions made by me, Arturo Petty MD.
[2016-07-19 06:41] VITALS: BP 157/85
--- NOTE | 2016-07-19 08:32 | RAD ---
HISTORY: CHF COMPARISONS: June 28, 2016 VIEWS: 2: Frontal dual-energy and lateral views of the chest. FINDINGS: CARDIOMEDIASTINAL SILHOUETTE: The cardiomediastinal silhouette is normal. NANCY: The nancy are normal. PLEURA: The costophrenic angles are sharp. No pleural abnormalities are noted. LUNG PARENCHYMA: There is hyperinflation with flattening of the diaphragm and expansion of the AP diameter of the chest. ABDOMEN: The upper abdomen is clear. There is no subphrenic gas. BONES AND SOFT TISSUES: There is accentuation of the thoracic kyphosis. There is diffuse osteopenia. OTHER: None. IMPRESSION: HYPERINFLATION, CONSISTENT WITH COPD. NO ACTIVE CARDIOPULMONARY DISEASE.
== END 2016-07-19 06:30 | disposition home or self-care (01) ==
LOC: ED 05:05
DX: J44.9 Chronic obstructive pulmonary disease, unspecified (principal); R60.0 Localized edema; Z87.891 Personal history of nicotine dependence
CPT/HCPCS: 36415; 71020; 80053; 85025; 99282

== ENCOUNTER 2016-07-23 23:45 | Emergency (ER) | payer MEDICARE, MEDICAID ==
--- NOTE | 2016-07-24 00:32 | ED ---
Bobby Otero Billy, scribed for Arturo Petty MD on 07/24/16 at 0005 . Lower Extremity - HPI Summary HPI Summary: 85 y/o female BIBA to [facility] with complaint of acute on chronic bilateral lower extremity edema for the last several days. Nothing makes her symptoms better or worse. Patient had same complaint and was seen in [facility] 07/19/16. 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 She has no other complaints at this time. - History of Current Complaint Chief Complaint: EDExtremityLower Stated Complaint: FLUID ON LEGS Time Seen by Provider: 07/23/16 23:55 Hx Obtained From: Patient Mechanism Of Injury: Unknown Onset of Pain: Days Onset/Duration: Days Severity Initially: Moderate Severity Currently: Moderate Timing: Constant Location: Is Diffuse Associated Signs And Symptoms: Positive: Swelling Aggravating Factor(s): Nothing Alleviating Factor(s): Nothing - Allergies/Home Medications Allergies/Adverse Reactions: Allergies Allergy/AdvReac Type Severity Reaction Status Date / Time Atorvastatin [From Lipitor] Allergy Mild Vomiting Verified 07/19/16 05:33 Sulfa Antibiotics Allergy Mild Vomiting Verified 07/19/16 05:33 Penicillin G Allergy Unknown Rash Verified 07/19/16 05:33 [From Penicillin Potassium-G] Metoprolol Allergy See Comment Verified 07/19/16 05:33 Prednisone Allergy See Comment Verified 07/19/16 05:33 PMH/Surg Hx/FS Hx/Imm Hx Endocrine/Hematology History: Reports: Hx Thyroid Disease Denies: Hx Diabetes Cardiovascular History: Reports: Hx Angina, Hx Coronary Artery Disease - STENT X2, Hx Hypercholesterolemia, Hx Hypertension, Other Cardiovascular Problems/ Disorders - SVT Denies: Hx Myocardial Infarction, Hx Pacemaker/ICD, Hx Valvular Heart Disease Respiratory History: Reports: Hx Asthma, Hx Chronic Obstructive Pulmonary Disease (COPD) GI History: Reports: Hx Diverticulosis - diverticulitis, Hx Gastroesophageal Reflux Disease, Hx Ileostomy, Other GI Disorders - colostomy 14 years History: Denies: Hx Acute Renal Failure, Hx Benign Prostatic Hyperplasia, Hx Chronic Renal Failure Musculoskeletal History: Reports: Hx Arthritis Sensory History: Reports: Hx Cataracts, Hx Contacts or Glasses, Hx Hearing Problem Denies: Hx Hearing Aid Opthamlomology History: Reports: Hx Cataracts, Hx Contacts or Glasses Neurological History: Reports: Hx Headaches Psychiatric History: Reports: Hx Anxiety, Hx Depression Denies: Hx Panic Disorder - Surgical History Surgery Procedure, Year, and Place: BOWEL RESECTION 2004 WITH COLOSTOMY; CARDIAC STENTS 2011; left eye corneal transplant ; right eye cataract removed summer 2013 Infectious Disease History: Denies: Hx Clostridium Difficile, Hx Hepatitis, Hx Human Immunodeficiency Virus (HIV), Hx Shingles, Hx Tuberculosis, Hx Known/Suspected VRE, Hx Known/ Suspected VRSA, History Other Infectious Disease, Traveled Outside the [place] in Last 30 Days - Family History Known Family History: Positive: Cardiac Disease - CAD - Social History Alcohol Use: None Hx Substance Use: No Substance Use Type: Reports: None Hx Tobacco Use: Yes Smoking Status (MU): Former Smoker Type: Cigarettes Length of Time of Smoking/Using Tobacco: 50 YEARS Have You Smoked in the Last Year: No Review of Systems Negative: Fever Positive: Edema All Other Systems Reviewed And Are Negative: Yes Physical Exam Triage Information Reviewed: Yes Vital Signs On Initial Exam: Initial Vital Signs Temp 97.9 F 07/24/16 00:00 Pulse 84 07/24/16 00:00 Resp 16 07/24/16 00:00 BP 137/70 07/24/16 00:00 Pulse Ox 100 07/24/16 00:00 Vital Signs Reviewed: Yes Appearance: Positive: Well-Appearing, No Pain Distress Skin: Positive: Warm Head/Face: Positive: Normal Head/Face Inspection Eyes: Positive: RAOUL ENT: Positive: Hearing grossly normal Neck: Positive: Supple Respiratory/Lung Sounds: Positive: Clear to Auscultation, Breath Sounds Present Cardiovascular: Positive: RRR Abdomen Description: Positive: Nontender, Soft Bowel Sounds: Positive: Present Musculoskeletal: Positive: Edema Left - 1+, Edema Right - 1+ Neurological: Positive: Sensory/Motor Intact, Alert, Oriented to Person Place, Time Diagnostics - Vital Signs Vital Signs Temp Pulse Resp BP Pulse Ox 07/24/16 00:00 97.9 F 84 16 137/70 100 - Laboratory Result Diagrams: 07/24/16 02:13 07/24/16 02:13 Lab Statement: Any lab studies that have been ordered have been reviewed, and results considered in the medical decision making process. Lower Extremity Course/Dx - Diagnoses Provider Diagnoses: Edema Discharge - Discharge Plan Condition: Stable Disposition: HOME Patient Education Materials: Edema (ED) Referrals: Robert Joaquin MD [Primary Care Provider] - The documentation as recorded by the scribBobby salgado Billy accurately reflects the service I personally performed and the decisions made by me, Arturo Petty MD.
[2016-07-24 02:25] LABS: Hematocrit 38 % (35-47); Hemoglobin 12.8 g/dl (12.0-16.0); Mean Corpuscular HGB Conc 34 g/dl (31-36); Mean Corpuscular Hemoglobin 30 pg (27-31); Mean Corpuscular Volume 87 fL (80-97); Mean Platelet Volume 8 um3 (7.4-10.4); Red Blood Count 4.34 10^6/ul (4.0-5.4); Red Cell Distribution Width 14 % (10.5-15); White Blood Count 8.1 10^3/ul (3.5-10.8)
[2016-07-24 02:43] LABS: Albumin 3.7 g/dL (3.2-5.2); BUN/Creatinine Ratio 24.1 (8-20); Calcium 9.1 mg/dL (8.6-10.3); EGFR African American 40.2 (>60); EGFR Non-African American 31.2 (>60); Potassium 4.8 mmol/L (3.5-5.0); Total Bilirubin 0.5 mg/dL (0.2-1.0); Total Protein 6.7 g/dL (6.4-8.9)
[2016-07-24 04:47] VITALS: BP 107/59
== END 2016-07-24 04:47 | disposition home or self-care (01) ==
LOC: ED 23:45
DX: R60.0 Localized edema (principal); Z87.891 Personal history of nicotine dependence
CPT/HCPCS: 36415; 80053; 83880; 85025; 99283

== ENCOUNTER 2016-07-27 13:54 | Observation (INO) | payer MEDICARE, MEDICAID ==
[2016-07-27] MEDS ORDERED: Aspirin Low Dose CHEW TAB* 81 MG PO ONE (14:28)
[2016-07-27 14:56] LABS: Hematocrit 40 % (35-47); Hemoglobin 13.3 g/dl (12.0-16.0); Mean Corpuscular HGB Conc 33 g/dl (31-36); Mean Corpuscular Hemoglobin 29 pg (27-31); Mean Corpuscular Volume 88 fL (80-97); Mean Platelet Volume 8 um3 (7.4-10.4); Red Blood Count 4.56 10^6/ul (4.0-5.4); Red Cell Distribution Width 14 % (10.5-15); White Blood Count 7.1 10^3/ul (3.5-10.8)
[2016-07-27 15:08] LABS: Troponin I 0.01 ng/mL (<0.04)
[2016-07-27 15:10] LABS: Albumin 4.1 g/dL (3.2-5.2); Calcium 9.7 mg/dL (8.6-10.3); EGFR African American 48.2 (>60); EGFR Non-African American 37.5 (>60); Globulin 3.6 g/dL (2-4); Potassium 4.5 mmol/L (3.5-5.0); Total Bilirubin 0.4 mg/dL (0.2-1.0); Total Protein 7.7 g/dL (6.4-8.9)
--- NOTE | 2016-07-27 15:12 | RAD ---
HISTORY: Generalized illness COMPARISONS: July 25, 2016 VIEWS:1: Single frontal portable view of the chest at 2:45 PM FINDINGS: LINES AND TUBES: None. CARDIOMEDIASTINAL SILHOUETTE: The cardiomediastinal silhouette is stable. PLEURA: The costophrenic angles are sharp. No pleural abnormalities are noted. LUNG PARENCHYMA: There is hyperinflation. ABDOMEN: The upper abdomen is clear. There is no subphrenic gas. BONES AND SOFT TISSUES: No bone or soft tissue abnormalities are noted. IMPRESSION: NO ACTIVE CARDIOPULMONARY DISEASE.
[2016-07-27] MEDS ORDERED: Acetaminophen TAB* 325 MG PO PRN (18:01)
[2016-07-27] MEDS ORDERED: Benzocaine/Menthol LOZ* 1 LOZENGE PO PRN (18:03)
[2016-07-27] MEDS ORDERED: ALPRAZolam TAB* 0.5 MG PO PRN (18:03)
[2016-07-27] MEDS ORDERED: Ondansetron TAB* 4 MG PO PRN (18:03)
[2016-07-27] MEDS ORDERED: Loperamide CAP* 2 MG PO PRN (18:03)
[2016-07-27] MEDS ORDERED: Artificial Tears* 15 ML BTL BOTH EYES PRN (18:03)
[2016-07-27] MEDS ORDERED: guaiFENesin ER TAB 600 MG PO PRN (18:03)
[2016-07-27] MEDS ORDERED: Albuterol HFA INHALER* 8 gm MDI INH PRN (18:03)
--- NOTE | 2016-07-27 18:41 | ED ---
Bobby Otero Billy, scribed for Dev Pascual MD on 07/27/16 at 1421 . HPI Chest Pain - HPI Summary HPI Summary: Patient is an 85 year-old female with a history of CHF coming to [facility] for evaluation of chest pressure this morning. Severity 10/07. Patient states that pain began at rest. Pain radiates to the jaw. The chest pain has resolved by this time. She states that she has had significantly increased bilateral lower extremity edema for one week. She takes a baby ASA daily. - History of Current Complaint Chief Complaint: EDChestPainROMI Time Seen by Provider: 07/27/16 14:10 Hx Obtained From: Patient Onset/Duration: Started Hours Ago, Resolved Timing: Constant Initial Severity: Moderate Current Severity: Moderate Pain Intensity: 6 Pain Scale Used: 0-10 Numeric Chest Pain Location: Diffuse Chest Pain Radiates: Yes Chest Pain Radiates To:: Jaw Character: Pressure/Squeezing Aggravating Factor(s): Nothing Alleviating Factor(s): Nothing Associated Signs and Symptoms: Positive: Calf Pain/Swelling - Additional Pertinent History Primary Care Physician: [id number] - Allergy/Home Medications Allergies/Adverse Reactions: Allergies Allergy/AdvReac Type Severity Reaction Status Date / Time Atorvastatin [From Lipitor] Allergy Mild Vomiting Verified 07/19/16 05:33 Sulfa Antibiotics Allergy Mild Vomiting Verified 07/19/16 05:33 Penicillin G Allergy Unknown Rash Verified 07/19/16 05:33 [From Penicillin Potassium-G] Metoprolol Allergy See Comment Verified 07/19/16 05:33 Prednisone Allergy See Comment Verified 07/19/16 05:33 Home Medications: Home Medications ALPRAZolam TAB* [Xanax TAB*] 0.125 mg PO Q4HR PRN 07/27/16 [History Confirmed ] Acetaminophen TAB* [Tylenol TAB*] 650 mg PO Q4H PRN 07/27/16 [History Confirmed 07/27/16] Albuterol HFA INHALER* [Ventolin HFA Inhaler*] 2 puff INH Q4H PRN 07/27/16 [ History Confirmed 07/27/16] Aspirin EC Low Dose* [Ecotrin EC Low Dose 81 MG*] 81 mg PO DAILY 07/27/16 [ History Confirmed 07/27/16] Biotin 300 mcg PO EVERY OTHER DAY 07/27/16 [History Confirmed 07/27/16] Cholecalciferol [Vitamin D3] 50,000 unit PO MONTHLY 07/27/16 [History Confirmed 07/27/16] Diltiazem CD CAP* [Cardizem CD CAP*] 240 mg PO DAILY 07/27/16 [History Confirmed 07/27/16] Fluticasone NASAL SPRAY 50MCG* [Flonase NASAL SPRAY 50MCG*] 2 spray BOTH NARES DAILY 07/27/16 [History Confirmed 07/27/16] Ipratropium HFA INHALER* [Atrovent Hfa Inhaler*] 2 puff INH TID 07/27/16 [ History Confirmed 07/27/16] Latanoprost 0.005%* [Xalatan 0.005%*] 1 drop BOTH EYES QPM 07/27/16 [History Confirmed 07/27/16] Loperamide CAP* [Imodium CAP*] 2 mg PO TID PRN 07/27/16 [History Confirmed 07/27] Ondansetron TAB* [Zofran 4 MG Tab*] 4 mg PO Q8HR PRN 07/27/16 [History Confirmed 07/27/16] Polyvinyl Alcohol-Povidone (Op [Refresh] 1 laura BOTH EYES DAILY PRN 07/27/16 [ History Confirmed 07/27/16] Simvastatin TAB(NF) [Zocor(NF)] 10 mg PO BEDTIME 07/27/16 [History Confirmed ] Torsemide TAB* [Demadex*] 20 mg PO DAILY 07/27/16 [History Confirmed 07/27/16] guaiFENesin ER TAB [Mucinex*] 600 mg PO Q12HR PRN 07/27/16 [History Confirmed ] PMH/Surg Hx/FS Hx/Imm Hx Endocrine/Hematology History: Reports: Hx Thyroid Disease Denies: Hx Diabetes Cardiovascular History: Reports: Hx Angina, Hx Coronary Artery Disease - STENT X2, Hx Hypercholesterolemia, Hx Hypertension, Other Cardiovascular Problems/ Disorders - SVT Denies: Hx Myocardial Infarction, Hx Pacemaker/ICD, Hx Valvular Heart Disease Respiratory History: Reports: Hx Asthma, Hx Chronic Obstructive Pulmonary Disease (COPD) GI History: Reports: Hx Diverticulosis - diverticulitis, Hx Gastroesophageal Reflux Disease, Hx Ileostomy, Other GI Disorders - colostomy 14 years History: Denies: Hx Acute Renal Failure, Hx Benign Prostatic Hyperplasia, Hx Chronic Renal Failure Musculoskeletal History: Reports: Hx Arthritis Sensory History: Reports: Hx Cataracts, Hx Contacts or Glasses, Hx Hearing Problem Denies: Hx Hearing Aid Opthamlomology History: Reports: Hx Cataracts, Hx Contacts or Glasses Neurological History: Reports: Hx Headaches Psychiatric History: Reports: Hx Anxiety, Hx Depression Denies: Hx Panic Disorder - Surgical History Surgery Procedure, Year, and Place: BOWEL RESECTION 2004 WITH COLOSTOMY; CARDIAC STENTS 2011; left eye corneal transplant ; right eye cataract removed summer 2013 Infectious Disease History: No Infectious Disease History: Denies: Hx Clostridium Difficile, Hx Hepatitis, Hx Human Immunodeficiency Virus (HIV), Hx Shingles, Hx Tuberculosis, Hx Known/Suspected VRE, Hx Known/ Suspected VRSA, History Other Infectious Disease, Traveled Outside the in Last 30 Days - Family History Known Family History: Positive: Cardiac Disease - CAD - Social History Alcohol Use: None Hx Substance Use: No Substance Use Type: Reports: None Hx Tobacco Use: Yes Smoking Status (MU): Former Smoker Type: Cigarettes Length of Time of Smoking/Using Tobacco: 50 YEARS Have You Smoked in the Last Year: No Review of Systems Positive: Chest Pain Positive: Edema All Other Systems Reviewed And Are Negative: Yes Physical Exam - Summary Physical Exam Summary: The patient is well-nourished in no acute distress and in no acute pain. The skin is warm and dry and skin color reflects adequate perfusion. HEENT: The head is normocephalic and atraumatic. The pupils are equal and reactive. The conjunctivae are clear and without drainage. Nares are patent and without drainage. Mouth reveals dry mucous membranes and the throat is without erythema and exudate. The external ears are intact. The ear canals are patent and without drainage. The tympanic membranes are intact. Neck is supple with full range of motion and non-tender. There are no carotid bruits. There is no neck vein distension. Respiratory: Chest is non-tender. Rales at the bases of the lungs bilaterally. Cardiovascular: Heart is regular rate and rhythm. There is no murmur or rub auscultated. Abdomen: The abdomen is soft and non-tender. There are normal bowel sounds heard in all four quadrants and there is no organomegaly palpated. Musculoskeletal: There is no back pain noted. Extremities are non-tender with full range of motion. There is good capillary refill. Bilateral pitting edema and erythema up to the knees. Neurological: Patient is alert and oriented to person, place and time. The patient has symmetrical motor strength in all four extremities. Psychiatric: The patient has an appropriate affect and does not exhibit any anxiety or depression. Triage Information Reviewed: Yes Vital Signs On Initial Exam: Initial Vitals Temp Pulse Resp BP Pulse Ox 98.3 F 91 18 155/87 96 07/27/16 13:55 07/27/16 13:55 07/27/16 13:55 07/27/16 13:55 07/27/16 13:55 Vital Signs Reviewed: Yes - [place] Coma Scale Coma Scale Total: 15 Diagnostics - Vital Signs Vital Signs Temp Pulse Resp BP Pulse Ox 07/27/16 13:55 98.3 F 91 18 155/87 96 - Laboratory Lab Results: Lab Results 07/27/16 07/27/16 07/27/16 Range/Units 14:17 14:17 14:17 WBC 7.1 (3.5-10.8) 10^3/ul RBC 4.56 (4.0-5.4) 10^6/ul Hgb 13.3 (12.0-16.0) g/dl Hct 40 (35-47) % MCV 88 (80-97) fL MCH 29 (27-31) pg MCHC 33 (31-36) g/dl RDW 14 (10.5-15) % Plt Count 237 (150-450) 10^3/ul MPV 8 (7.4-10.4) um3 Neut % (Auto) 63.4 (38-83) % Lymph % (Auto) 20.3 L (25-47) % [place] % (Auto) 10.5 H (1-9) % Eos % (Auto) 5.1 (0-6) % Baso % (Auto) 0.7 (0-2) % Absolute Neuts (auto) 4.5 (1.5-7.7) 10^3/ul Absolute Lymphs (auto) 1.4 (1.0-4.8) 10^3/ul Absolute Monos (auto) 0.7 (0-0.8) 10^3/ul Absolute Eos (auto) 0.4 (0-0.6) 10^3/ul Absolute Basos (auto) 0 (0-0.2) 10^3/ul Absolute Nucleated RBC 0.01 10^3/ul Nucleated RBC % 0.2 Sodium 135 (133-145) mmol/L Potassium 4.5 (3.5-5.0) mmol/L Chloride 100 L (101-111) mmol/L Carbon Dioxide 29 (22-32) mmol/L Anion Gap 6 (2-11) mmol/L BUN 31 H (6-24) mg/dL Creatinine 1.35 H (0.51-0.95) mg/dL Est GFR ( Amer) 48.2 (>60) Est GFR (Non-Af Amer) 37.5 (>60) BUN/Creatinine Ratio 23.0 H (8-20) Glucose 132 H (70-100) mg/dL Lactic Acid 1.2 (0.5-2.0) mmol/L Calcium 9.7 (8.6-10.3) mg/dL Magnesium 2.0 (1.9-2.7) mg/dL Total Bilirubin 0.40 (0.2-1.0) mg/dL AST 18 (13-39) U/L ALT 12 (7-52) U/L Alkaline Phosphatase 86 (34-104) U/L Troponin I 0.01 (<0.04) ng/mL B-Natriuretic Peptide ( - 100) pg/mL Total Protein 7.7 (6.4-8.9) g/dL Albumin 4.1 (3.2-5.2) g/dL Globulin 3.6 (2-4) g/dL Albumin/Globulin Ratio 1.1 (1-3) 07/27/16 Range/Units 14:17 WBC (3.5-10.8) 10^3/ul RBC (4.0-5.4) 10^6/ul Hgb (12.0-16.0) g/dl Hct (35-47) % MCV (80-97) fL MCH (27-31) pg MCHC (31-36) g/dl RDW (10.5-15) % Plt Count (150-450) 10^3/ul MPV (7.4-10.4) um3 Neut % (Auto) (38-83) % Lymph % (Auto) (25-47) % [place] % (Auto) (1-9) % Eos % (Auto) (0-6) % Baso % (Auto) (0-2) % Absolute Neuts (auto) (1.5-7.7) 10^3/ul Absolute Lymphs (auto) (1.0-4.8) 10^3/ul Absolute Monos (auto) (0-0.8) 10^3/ul Absolute Eos (auto) (0-0.6) 10^3/ul Absolute Basos (auto) (0-0.2) 10^3/ul Absolute Nucleated RBC 10^3/ul Nucleated RBC % Sodium (133-145) mmol/L Potassium (3.5-5.0) mmol/L Chloride (101-111) mmol/L Carbon Dioxide (22-32) mmol/L Anion Gap (2-11) mmol/L BUN (6-24) mg/dL Creatinine (0.51-0.95) mg/dL Est GFR ( Amer) (>60) Est GFR (Non-Af Amer) (>60) BUN/Creatinine Ratio (8-20) Glucose (70-100) mg/dL Lactic Acid (0.5-2.0) mmol/L Calcium (8.6-10.3) mg/dL Magnesium (1.9-2.7) mg/dL Total Bilirubin (0.2-1.0) mg/dL AST (13-39) U/L ALT (7-52) U/L Alkaline Phosphatase (34-104) U/L Troponin I (<0.04) ng/mL B-Natriuretic Peptide 85 ( - 100) pg/mL Total Protein (6.4-8.9) g/dL Albumin (3.2-5.2) g/dL Globulin (2-4) g/dL Albumin/Globulin Ratio (1-3) Result Diagrams: 07/27/16 14:17 07/27/16 14:17 Lab Statement: Any lab studies that have been ordered have been reviewed, and results considered in the medical decision making process. - Radiology CXR Xray Interpretation: No Acute Changes Radiology Interpretation Completed By: Radiologist - EKG 1540 EKG Interpretation: NSR 86 bpm, normal axis, poor R-wave progression, old anterior wall NC Re-Evaluation - Re-Evaluation First Eval Re-Evaluation Time: 16:22 Change: Improved Comment: Reviewed and discussed labs/imaging. Chest Pain Course/Dx - Course Assessment/Plan: 85 year-old female with a history of CHF comes to the ED with a complaint of chest pain and bilateral lower extremity edema. She has had numerous visits to the ED recently. Labs reviewed. Troponin is 0.01. CXR shows no acute disease. EKG shows NSR with no acute findings. Discussed with Dr. Lawrence, who will see the patient in the ED. - Chest Pain Differential Diagnosis/HQI/PQRI: Acute NC, ACS, CHF, Other: - Diagnoses Provider Diagnoses: Chest pain, Anxiety - Provider Notifications Discussed Care Of Patient With: Dr. Lawrence (hospitalist) @ 1630: will see patient in the ED. Discharge - Discharge Plan Condition: Stable Disposition: ADMITTED TO [facility] The documentation as recorded by the Bobby lauren Billy accurately reflects the service I personally performed and the decisions made by me, Dev Pascual MD.
--- NOTE | 2016-07-27 19:03 | RAD ---
HISTORY: Edema COMPARISONS: None relevant TECHNIQUE: Multiple transverse and longitudinal ultrasound images were obtained of the bilateral lower extremities from the level of the common femoral vein inferiorly through to the infrapopliteal veins using grayscale, color Doppler, and spectral Doppler imaging with and without compression and with augmentation. Comparison images were obtained of the contralateral common femoral vein. FINDINGS: VEINS: The venous system of the bilateral lower extremities is compressible throughout its course, with normal flow on color Doppler imaging and normal response to augmentation on spectral Doppler imaging. SOFT TISSUES: Unremarkable. OTHER FINDINGS: None. IMPRESSION: NO RIGHT LOWER EXTREMITY DEEP VEIN THROMBOSIS. NO LEFT LOWER EXTREMITY DEEP VEIN THROMBOSIS
[2016-07-27] MEDS ORDERED: CMCS Simvastatin TAB(NF) 10 MG TAB PO SCH (21:00)
[2016-07-27] MEDS: Calcium Carbonate CHEW TAB* 500 MG (TUMS) PO SCH (21:22)
[2016-07-27] MEDS: Cephalexin CAP* 500 MG PO SCH (21:23)
[2016-07-27] MEDS: Heparin VIAL(*) 5000 UNITS/ML VIAL (FIVE THOUSAND) SUBCUT SCH (21:23)
--- NOTE | 2016-07-27 22:21 | HP ---
HISTORY AND PHYSICAL: DATE OF ADMISSION: 07/27/16 PRIMARY CARE PROVIDER: Dr. Joaquin. DRY SAND MOLDER: Dr. Swanson. CHIEF COMPLAINT: Jaw pain and bilateral lower extremity swelling and redness. HISTORY OF PRESENT ILLNESS: Ms. Jones is an 85-year-old female, who was recently hospitalized from 06/28/16 through 07/03/16 with complaints of jaw pain where she was worked up for this and underwent a stress test that was noted to be abnormal with a moderate size reversible defect involving the inferolateral wall; however, an addendum was placed showing that although the lateral defect appears to partially correct on the attenuation correction images , there is still relative hypoperfusion in the lateral wall, both on the nonattenuated corrected images and attenuated corrected images. This may be due to slight difference in position on the stress and rest images, and certainly, the defects could be artifactual from breast attenuation. Correlation with clinical suspicion is suggested. The patient was ultimately discharged back to [facility] on 07/03/16. The patient did follow up with Dr. Swanson on 07/19/16. At that time, medication adjustments were made where she was taken off metoprolol and amlodipine. She was started on diltiazem for blood pressure control. The patient had been doing relatively well at [facility] over the last couple of days; however, has been having intermittent jaw pain and presented to the emergency room for this as well as bilateral lower extremity swelling and redness today. The patient states that the jaw pain is more than 8. She describes it as off and on. She states it will last for 10 to 15 minutes. When asked what precedes the onset of the jaw pain, she states it is usually feeling anxious. The patient in the emergency room developed burning chest discomfort after eating some ice chips. She states that this is very uncommon for her and has now resolved. The patient also presented to the emergency room for evaluation of swelling in her legs as well as bilateral lower extremity erythema. The patient is very concerned about the swelling in her legs stating this is new over the last 1 week. The patient was, however, noted to have lower extremity swelling at the time of her evaluation by Dr. Swanson. PAST MEDICAL HISTORY: 1. Hypothyroidism. 2. Hypertension. 3. Diastolic congestive heart failure. 4. Anxiety and depression. 5. Hyperlipidemia. 6. Osteoporosis. 7. Glaucoma. 8. COPD. 9. History of atrial fibrillation in the past. 10. History of diverticulitis. 11. GERD. PAST SURGICAL HISTORY: 1. Status post cardiac catheterization, 2011, with 2 stents being placed. 2. Status post bowel resection with colostomy. 3. Status post left corneal transplant. MEDICATIONS: 1. Guaifenesin 10 mL p.o. q.4 hours p.r.n. cough. 2. Tylenol 650 mg p.o. q.4 hours p.r.n. pain. 3. Xanax 0.125 mg p.o. q.4 hours p.r.n. pain. 4. Zocor 10 mg p.o. q.h.s. 5. Tums 500 mg p.o. four times a day p.r.n. indigestion. 6. Atrovent 2 puffs inhaled t.i.d. 7. Albuterol 2 puffs inhaled q.4 hours p.r.n. shortness of breath. 8. Vitamin D3 50,000 units p.o. monthly. 9. Biotin 300 mcg p.o. every other day. 10. Xalatan 1 drop to both eyes at bedtime. 11. Flonase 2 squirts both nostrils daily. 12. Platinum cough drop 1 lozenge p.o. q.4 hours p.r.n. cough. 13. Mucinex 600 mg p.o. q.12 hours p.r.n. congestion. 14. Zofran 4 mg p.o. q.8 hours p.r.n. nausea. 15. Imodium 2 mg p.o. t.i.d. p.r.n. diarrhea. 16. Artificial tears 1 drop to both eyes 4 times daily p.r.n. dryness. 17. Torsemide 20 mg p.o. daily. 18. Fluorometholone 1 drop to both eyes daily. 19. Refresh 1 drop to both eyes daily p.r.n. dry eye. 20. Levothyroxine 75 mcg p.o. daily. 21. Aspirin 81 mg p.o. daily. 22. Nitroglycerin 0.4 mg SL q.5 minutes p.r.n. chest pain. 23. Diltiazem CD 240 mg p.o. daily. ALLERGIES: LIPITOR, SULFA, PENICILLIN G, METOPROLOL, and PREDNISONE. FAMILY HISTORY: The patient's father had a history of heart disease. The patient's mother had a history of diabetes and uterine cancer. SOCIAL HISTORY: The patient is a former smoker. She quit 6 years ago. She smoked for approximately 60 years, half a pack per day. She does not drink alcohol. She is retired. She lives at [facility] in the assisted living portion. The patient's daughter, Leisa Jones, is her healthcare proxy. REVIEW OF SYSTEMS: The patient denies any fevers. She admits to jaw pain and chest pain as above. She has lower extremity edema as noted above. She denies any cough. She does admit to chronic shortness of breath especially with exertion. No nausea or vomiting. She states that she does take Imodium from time to time for loose stools. No abdominal pain. No hematuria. No dysuria. She complains of numbness in her fingers from time to time. No sudden changes in vision. No dysphagia. No joint pains or muscle pains out of the ordinary. She does notice erythema of her bilateral lower extremities. She is unable to tell me when this developed. She admits to anxiety and depression. PHYSICAL EXAMINATION GENERAL: The patient is a well-developed, elderly female, sitting up in the stretcher in no acute distress. VITAL SIGNS: Blood pressure 149/65, pulse 86, respirations 15, temp 98.3, O2 sat 94% on room air. HEENT: Left pupil is round. Right cornea is significantly opacified. Extraocular muscles are intact. Oropharynx is clear. Oral mucosa is moist. There is no submandibular, cervical, or supraclavicular adenopathy. NECK: No thyroid nodules are noted. No thyromegaly is noted. PULMONARY: Lungs are clear to auscultation bilaterally. CARDIAC: Normal S1, S2. Regular rate and rhythm. I do not appreciate any murmurs. There is 2+ to 3+ bilateral lower extremity edema. ABDOMEN: Bowel sounds present. Abdomen is soft, nontender, nondistended. There is a colostomy on the left side of the abdomen with liquid to soft stool in the bag. MUSCULOSKELETAL: There is no cyanosis or clubbing of the digits. There is full active range of motion of all 4 extremities. NEURO: Cranial nerves II through XII are grossly intact. Sensation is intact to light touch throughout. Strength is 5/5 and symmetric, both upper and lower extremities bilaterally. PSYCH: The patient is alert, she is oriented x3. Affect appears appropriate. SKIN: Warm and dry. There are no rashes, but there is bilateral lower extremity edema in the anterior lower legs. DIAGNOSTIC STUDIES/LAB DATA: WBC 7.1, hemoglobin 13.3, hematocrit 40, platelets 237. Sodium 135, potassium 4.5, chloride 100, CO2 29, BUN 31, creatinine 1.35, glucose 132, lactic acid 1.2, calcium 9.7, magnesium 2.0. Bilirubin 0.4, AST 18, ALT 12, alk phos 86. Troponin 0.01, repeated 0.01. BNP 85. Albumin 4.1. EKG reveals normal sinus rhythm without any acute ST-T wave abnormalities. There is a prolonged MO interval. Chest x-ray: No acute cardiopulmonary disease. ASSESSMENT AND PLAN: Ms. Jones is an 85-year-old female who presented to the emergency room with complaints of her jaw discomfort as well as bilateral lower extremity swelling and erythema. 1. Jaw discomfort: The patient presented with jaw discomfort earlier in June. At that time, she underwent stress test which initially was read as positive with reversible ischemia. However, on followup, it was felt that this likely was artifactual. The patient did see Dr. Swanson in followup. He recommended medical management. I do not think that she is going to need cardiac catheterization at this time though I will likely touch base with Cardiology tomorrow. The patient will have another followup troponin and if negative, I will not pursue any further workup until speaking with Cardiology. 2. Bilateral lower extremity swelling and erythema: This is somewhat suspicious for cellulitis. The patient, however, does not have an elevated white blood cell count or fever. The patient described feeling somewhat quivery yesterday. Perhaps, this could have been rigors. I will go ahead and place her on Keflex 500 mg p.o. b.i.d. I will follow up her erythema tomorrow. 3. Hypertension: The patient's blood pressure is moderately elevated. I am going to continue on her usual regimen for now, and if no improvement by tomorrow morning, we will need to consider adjusting her regimen. 4. Hyperlipidemia: Continue simvastatin. 5. Glaucoma: Continue eye drops. 6. Coronary artery disease: I do not believe that the patient's jaw pain is an anginal equivalent. She describes as developing after she gets anxious. The patient will be continued on her usual home medication regimen. 7. DVT prophylaxis: According to the Adult Thrombosis Prophylaxis Risk Factor Assessment Guide, the patient has a total risk factor score of 5 making her the highest risk. She will be placed on heparin 5000 units subcutaneous q.8 hours. 8. Code status is full and the patient again indicates that her daughter, Leisa, is her healthcare proxy. TIME SPENT: Sixty-five minutes was spent admitting this patient. CC: Dr. Joaquin* [id number]/CPS #: [id number] DRAGAN
[2016-07-27] MEDS: ALPRAZolam TAB* 0.25 MG PO PRN (23:20)
[2016-07-28] MEDS: Heparin VIAL(*) 5000 UNITS/ML VIAL (FIVE THOUSAND) SUBCUT SCH ×2 (05:17→13:21)
[2016-07-28] MEDS ORDERED: Levothyroxine TAB* 75 MCG TAB PO SCH (06:00)
[2016-07-28] MEDS ORDERED: Fluorometholone 0.1% OPTH.SUS* 5 ML BTL BOTH EYES SCH (09:00)
[2016-07-28] MEDS ORDERED: Spiriva Inhaler DEVICE* 1 EACH DEVICE INH ONE (09:00)
[2016-07-28] MEDS ORDERED: Aspirin EC Low Dose* 81 MG TAB.EC PO SCH (09:00)
[2016-07-28] MEDS ORDERED: Diltiazem CD CAP* 240 MG PO SCH (09:00)
[2016-07-28] MEDS ORDERED: Tiotropium CAP.INH* CAP.INH/18 MCG INH SCH (09:00)
[2016-07-28] MEDS: Calcium Carbonate CHEW TAB* 500 MG (TUMS) PO SCH (09:14)
[2016-07-28] MEDS: Cephalexin CAP* 500 MG PO SCH (09:15)
[2016-07-28] MEDS: ALPRAZolam TAB* 0.25 MG PO PRN (09:28)
[2016-07-28 12:21] VITALS: BP 128/61
--- NOTE | 2016-07-28 14:32 | PN ---
Subjective Date of Service: 07/28/16 Interval History: Pt is feeling ok. She states last night was the first night she had slept in a week due to less pain in her legs. She has not had the jaw pain today. No SOB. Objective Active Medications: Acetaminophen (Tylenol Tab*) 650 mg PO Q4H PRN PRN Reason: PAIN Last Admin: 07/28/16 07:26 Dose: 650 mg Albuterol (Ventolin Hfa Inhaler*) 2 puff INH QID PRN PRN Reason: SHORTNESS OF BREATH Alprazolam (Xanax Tab*) 0.125 mg PO Q4H PRN PRN Reason: ANXIETY Last Admin: 07/28/16 09:28 Dose: 0.125 mg Aspirin (Aspirin Ec Low Dose*) 81 mg PO DAILY [facility] Last Admin: 07/28/16 09:15 Dose: 81 mg Calcium Carbonate (Tums*) 500 mg PO BID [facility] Last Admin: 07/28/16 09:14 Dose: 500 mg Cephalexin HCl (Keflex Cap*) 500 mg PO BID [facility] Last Admin: 07/28/16 09:15 Dose: 500 mg Diltiazem HCl (Cardizem Cd Cap*) 240 mg PO DAILY [facility] Last Admin: 07/28/16 09:15 Dose: 240 mg Fluorometholone Acetate (Fml 0.1% Opth.Susp*) 1 drop BOTH EYES DAILY [facility] Last Admin: 07/28/16 09:17 Dose: 1 drop Guaifenesin (Mucinex*) 600 mg PO Q12HR PRN PRN Reason: CONGESTION Heparin Sodium (Porcine) (Heparin Vial(*)) 5,000 units SUBCUT Q8HR [facility] Last Admin: 07/28/16 13:21 Dose: 5,000 units Levothyroxine Sodium (Synthroid Tab*) 75 mcg PO 0600 [facility] Last Admin: 07/28/16 05:17 Dose: 75 mcg Loperamide HCl (Imodium Cap*) 2 mg PO TID PRN PRN Reason: DIARRHEA Last Admin: 07/27/16 21:56 Dose: 2 mg Ondansetron HCl (Zofran Tab*) 4 mg PO Q8HR PRN PRN Reason: NAUSEA Last Admin: 07/27/16 23:06 Dose: 4 mg Polyvinyl Alcohol (Polyvinyl Alcohol 1.4% Opth*) 1 drop BOTH EYES QID PRN PRN Reason: dry eyes Simvastatin (Zocor(Nf)) 10 mg PO BEDTIME [facility] Last Admin: 07/27/16 21:45 Dose: 10 mg Throat Lozenges (Chloraseptic Rosaura*) 1 rosaura PO Q4H PRN PRN Reason: COUGH Tiotropium [place] (Spiriva Cap.Inh*) 1 cap INH DAILY [facility] Last Admin: 07/28/16 09:19 Dose: 1 cap.inh Vital Signs 07/27/16 07/27/16 07/27/16 17:00 17:30 18:00 Temperature Pulse Rate 92 84 94 Respiratory 16 15 17 Rate Blood Pressure 156/62 149/65 139/60 (mmHg) O2 Sat by Pulse 91 94 96 Oximetry 07/27/16 07/27/16 07/27/16 18:30 18:51 19:00 Temperature 98.7 F Pulse Rate 82 86 84 Respiratory 16 20 16 Rate Blood Pressure 132/61 147/65 118/54 (mmHg) O2 Sat by Pulse 93 100 93 Oximetry 07/27/16 07/27/16 07/27/16 19:30 19:52 21:56 Temperature 98.5 F Pulse Rate 88 80 Respiratory 16 16 18 Rate Blood Pressure 133/45 138/66 (mmHg) O2 Sat by Pulse 93 Oximetry 07/27/16 07/27/16 07/27/16 23:18 23:20 23:56 Temperature 97.8 F Pulse Rate 89 Respiratory 18 18 16 Rate Blood Pressure 145/64 (mmHg) O2 Sat by Pulse 92 Oximetry 07/28/16 07/28/16 07/28/16 01:20 03:44 07:37 Temperature 97.7 F 98.2 F Pulse Rate 81 79 Respiratory 18 16 19 Rate Blood Pressure 122/62 132/69 (mmHg) O2 Sat by Pulse 92 95 Oximetry 07/28/16 07/28/16 07/28/16 09:28 11:26 11:28 Temperature 97.5 F Pulse Rate 76 Respiratory 16 18 18 Rate Blood Pressure 128/61 (mmHg) O2 Sat by Pulse 93 Oximetry Oxygen Devices in Use Now: None Appearance: Elderly female lying in bed, NAD Eyes: No Scleral Icterus Ears/Nose/Mouth/Throat: Mucous Membranes Moist Respiratory: Symmetrical Chest Expansion and Respiratory Effort, Clear to Auscultation Cardiovascular: NL Sounds; No Murmurs; No JVD, RRR, No Edema Abdominal: NL Sounds; No Tenderness; No Distention Extremities: No Clubbing, Cyanosis Skin: No Nodules or Sclerosis, - - mild erythema of lower legs-slightly better than yesterday Neurological: Alert and Oriented x 3 Result Diagrams: 07/27/16 14:17 07/27/16 14:17 Additional Lab and Data: Lab Results 07/27/16 07/27/16 07/27/16 Range/Units 14:17 14:17 14:17 WBC 7.1 (3.5-10.8) 10^3/ul RBC 4.56 (4.0-5.4) 10^6/ul Hgb 13.3 (12.0-16.0) g/dl Hct 40 (35-47) % MCV 88 (80-97) fL MCH 29 (27-31) pg MCHC 33 (31-36) g/dl RDW 14 (10.5-15) % Plt Count 237 (150-450) 10^3/ul MPV 8 (7.4-10.4) um3 Neut % (Auto) 63.4 (38-83) % Lymph % (Auto) 20.3 L (25-47) % [place] % (Auto) 10.5 H (1-9) % Eos % (Auto) 5.1 (0-6) % Baso % (Auto) 0.7 (0-2) % Absolute Neuts (auto) 4.5 (1.5-7.7) 10^3/ul Absolute Lymphs (auto) 1.4 (1.0-4.8) 10^3/ul Absolute Monos (auto) 0.7 (0-0.8) 10^3/ul Absolute Eos (auto) 0.4 (0-0.6) 10^3/ul Absolute Basos (auto) 0 (0-0.2) 10^3/ul Absolute Nucleated RBC 0.01 10^3/ul Nucleated RBC % 0.2 Sodium 135 (133-145) mmol/L Potassium 4.5 (3.5-5.0) mmol/L Chloride 100 L (101-111) mmol/L Carbon Dioxide 29 (22-32) mmol/L Anion Gap 6 (2-11) mmol/L BUN 31 H (6-24) mg/dL Creatinine 1.35 H (0.51-0.95) mg/dL Est GFR ( Amer) 48.2 (>60) Est GFR (Non-Af Amer) 37.5 (>60) BUN/Creatinine Ratio 23.0 H (8-20) Glucose 132 H (70-100) mg/dL Lactic Acid 1.2 (0.5-2.0) mmol/L Calcium 9.7 (8.6-10.3) mg/dL Magnesium 2.0 (1.9-2.7) mg/dL Total Bilirubin 0.40 (0.2-1.0) mg/dL AST 18 (13-39) U/L ALT 12 (7-52) U/L Alkaline Phosphatase 86 (34-104) U/L Troponin I 0.01 (<0.04) ng/mL B-Natriuretic Peptide ( - 100) pg/mL Total Protein 7.7 (6.4-8.9) g/dL Albumin 4.1 (3.2-5.2) g/dL Globulin 3.6 (2-4) g/dL Albumin/Globulin Ratio 1.1 (1-3) 07/27/ Range/Units 14:17 WBC (3.5-10.8) 10^3/ul RBC (4.0-5.4) 10^6/ul Hgb (12.0-16.0) g/dl Hct (35-47) % MCV (80-97) fL MCH (27-31) pg MCHC (31-36) g/dl RDW (10.5-15) % Plt Count (150-450) 10^3/ul MPV (7.4-10.4) um3 Neut % (Auto) (38-83) % Lymph % (Auto) (25-47) % [place] % (Auto) (1-9) % Eos % (Auto) (0-6) % Baso % (Auto) (0-2) % Absolute Neuts (auto) (1.5-7.7) 10^3/ul Absolute Lymphs (auto) (1.0-4.8) 10^3/ul Absolute Monos (auto) (0-0.8) 10^3/ul Absolute Eos (auto) (0-0.6) 10^3/ul Absolute Basos (auto) (0-0.2) 10^3/ul Absolute Nucleated RBC 10^3/ul Nucleated RBC % Sodium (133-145) mmol/L Potassium (3.5-5.0) mmol/L Chloride (101-111) mmol/L Carbon Dioxide (22-32) mmol/L Anion Gap (2-11) mmol/L BUN (6-24) mg/dL Creatinine (0.51-0.95) mg/dL Est GFR ( Amer) (>60) Est GFR (Non-Af Amer) (>60) BUN/Creatinine Ratio (8-20) Glucose (70-100) mg/dL Lactic Acid (0.5-2.0) mmol/L Calcium (8.6-10.3) mg/dL Magnesium (1.9-2.7) mg/dL Total Bilirubin (0.2-1.0) mg/dL AST (13-39) U/L ALT (7-52) U/L Alkaline Phosphatase (34-104) U/L Troponin I (<0.04) ng/mL B-Natriuretic Peptide 85 ( - 100) pg/mL Total Protein (6.4-8.9) g/dL Albumin (3.2-5.2) g/dL Globulin (2-4) g/dL Albumin/Globulin Ratio (1-3) Microbiology and Other Data: Microbiology 07/27/16 17:07 Nasal Screen MRSA (PCR)(LIZ) - Final Nasal Mrsa Negative Assess/Plan/Problems-Billing Ms Jones is a 85 yo F who has a h/o stable CAD, HTN, hypothyroidism and anxiety who presented to the ER with c/o jaw discomfort and swollen legs. - Patient Problems (1) Jaw pain Current Visit: Yes Status: Acute Code(s): R68.84 - JAW PAIN SNOMED Code(s) : 876680719 Comment: I doubt this represents an anginal equivalent. She will continue on her usual home medication regimen. Follow up with Dr. Swanson as scheduled. (2) Leg edema Current Visit: Yes Status: Acute Code(s): R60.0 - LOCALIZED EDEMA SNOMED Code(s): 322272295 Comment: Swelling is slightly better today. The edema is not new over the last 1 week like the patient states. She had LE swelling during her last hospitalization. Continue home diuretic therapy. (3) Cellulitis Current Visit: Yes Status: Acute Code(s): L03.90 - CELLULITIS, UNSPECIFIED SNOMED Code(s): 591045979 Comment: Will continue keflex for 5 more days. I am not convinced the redness is a true cellulitis but given the pain in her legs will treat. (4) Anxiety Current Visit: Yes Status: Acute Code(s): F41.9 - ANXIETY DISORDER, UNSPECIFIED SNOMED Code(s): 22067769 Comment: Continue alprazolam. (5) Hyperlipidemia Current Visit: Yes Status: Chronic Code(s): E78.5 - HYPERLIPIDEMIA, UNSPECIFIED SNOMED Code(s): 19535590 Comment: Continue simvastatin. (6) CKD (chronic kidney disease) Current Visit: Yes Status: Chronic Code(s): N18.9 - CHRONIC KIDNEY DISEASE, UNSPECIFIED SNOMED Code(s): 344827189 Comment: Creatinine is at baseline. (7) DVT prophylaxis Current Visit: Yes Status: Acute Code(s): KAF7731 - SNOMED Code(s): 343086221 Comment: SQ heparin (8) Full code status Current Visit: Yes Status: Acute Code(s): Z78.9 - OTHER SPECIFIED HEALTH STATUS SNOMED Code(s): 852181671
--- NOTE | 2016-07-29 20:34 | DS ---
CC: Dr. Joaquin DISCHARGE SUMMARY: DATE OF ADMISSION: 07/27/16 DATE OF DISCHARGE: 07/28/16 PRIMARY CARE PROVIDER: Dr. Joaquin. TRIAL PARALEGAL: Dr. Swanson. PRINCIPAL DIAGNOSES: 1. Jaw pain - likely anxiety related. 2. Possible bilateral lower extremity cellulitis with lower extremity swelling. SECONDARY DIAGNOSES: 1. Coronary artery disease. 2. Hypertension. 3. Hypothyroidism. 4. Diastolic congestive heart failure. 5. Anxiety and depression. 6. Hyperlipidemia. 7. Chronic obstructive pulmonary disease. 8. Gastroesophageal reflux disease. DISCHARGE MEDICATIONS: 1. Guaifenesin 10 mL p.o. q.4 hours p.r.n. cough. 2. Tylenol 650 mg p.o. q.4 hours p.r.n. pain. 3. Xanax 0.125 mg p.o. q.4 hours p.r.n. anxiety. 4. Simvastatin 10 mg p.o. q.h.s. 5. Tums 500 mg p.o. four times a day p.r.n. indigestion. 6. Atrovent 2 puffs inhaled t.i.d. 7. Albuterol 2 puffs inhaled q.4 hours p.r.n. shortness of breath. 8. Vitamin D3 50,000 units p.o. monthly. 9. Biotin 300 mcg p.o. every other day. 10. Xalatan 1 drop to both eyes q.h.s. 11. Flonase 2 squirts to each nostril daily. 12. Cough drop 1 lozenge p.o. q.4 hours p.r.n. cough. 13. Zofran 4 mg p.o. q.8 hours p.r.n. nausea. 14. Mucinex 600 mg p.o. q.12 hours p.r.n. congestion. 15. Imodium 2 mg p.o. t.i.d. p.r.n. diarrhea. 16. Artificial tears 1 drop to both eyes 4 times daily p.r.n. dryness. 17. Demadex 20 mg p.o. daily. 18. Fluorometholone 1 drop to both eyes daily. 19. Refresh 1 drop to both eyes daily p.r.n. dryness. 20. Levothyroxine 75 mcg p.o. daily. 21. Aspirin 81 mg p.o. daily. 22. Nitroglycerin 0.4 mg SL q.5 minutes p.r.n. chest pain. 23. Diltiazem CD 240 mg p.o. daily. 24. Tramadol 25 mg p.o. q.h.s. p.r.n. pain. 25. Keflex 500 mg p.o. b.i.d. x10 days. HOSPITAL COURSE: Ms. Jones is an 85-year-old female who presented to the emergency room on 07/27 with complaints of jaw discomfort, leg swelling, and redness. The patient ultimately stated her jaw discomfort came when she was anxious. She had previously been worked up for this. This was ju st earlier this month. The patient had undergone a stress test that initially was read as reversibl e ischemia. However, on re-read by the radiologist, this was corrected to likely artifactual in ninoska ure. The patient has seen Dr. Swanson in followup since that admission, at which time medication adj ustments were made; however, no plan was made for a cardiac catheterization. The patient has not mayfield d any further jaw pain and is stable from that standpoint. On admission, the patient also complained of swelling of her lower extremities. They were also noted to be mildly erythematous. The patient was started on Keflex for possible cellulitis. I am not 10 0% convinced that this is what is going on as reviewing the records from a prior hospitalization, th e patient had swelling in her legs at that point. The patient continues to state that this has been an acute issue; however, I do not believe the patient's history regarding this. The patient had be en taken off her amlodipine at her followup appointment with Dr. Swanson just on 07/19/16. Perhaps o kristyn the next couple of weeks, the swelling in her legs will go down. The patient will continue on h er usual dose of Demadex. FOLLOWUP CONCERNS: The patient is being discharged home today, 07/28/16. She is remaining on her u sual home medication regimen with the addition of Keflex and tramadol at bedtime for pain in her leg s. ACTIVITY LEVEL: As tolerated. DIET: Low salt, low fat. CONDITION ON DISCHARGE: Stable. FOLLOWUP: The patient is to follow up with Dr. Joaquin in the ne xt 4 to 7 days. TIME SPENT: Twenty five minutes were spent discharging this patient. [id number]/[facility] #: [id number]
== END 2016-07-28 16:35 ==
LOC: ED 13:54 → MEDTELE 16:30
PROVIDERS: ADMIT Internal Medicine; ATTEND Hospitalist
DX: R68.84 Jaw pain (principal); M79.89 Other specified soft tissue disorders; I25.10 Atherosclerotic heart disease of native coronary artery without angina pectoris; I13.0 Hypertensive heart and chronic kidney disease with heart failure and stage 1 through stage 4 chronic kidney disease, or unspecified chronic kidney disease; I50.30 Unspecified diastolic (congestive) heart failure; N18.9 Chronic kidney disease, unspecified; E03.9 Hypothyroidism, unspecified; E78.5 Hyperlipidemia, unspecified; J44.9 Chronic obstructive pulmonary disease, unspecified; K21.9 Gastro-esophageal reflux disease without esophagitis; F32.9 Major depressive disorder, single episode, unspecified; F41.9 Anxiety disorder, unspecified; I45.81 Long QT syndrome; I49.1 Atrial premature depolarization; Z79.899 Other long term (current) drug therapy; Z79.82 Long term (current) use of aspirin; Z88.0 Allergy status to penicillin; Z88.2 Allergy status to sulfonamides; Z88.8 Allergy status to other drugs, medicaments and biological substances; Z95.5 Presence of coronary angioplasty implant and graft; Z87.891 Personal history of nicotine dependence
CPT/HCPCS: 36415; 71010; 80053; 83605; 83735; 83880; 84484; 85025; 87641; 93005; 93970; 96372; 99283; A9270-GY; G0378; J1644

== ENCOUNTER 2016-08-04 14:25 | Inpatient (IN) | payer MEDICARE, MEDICAID ==
[2016-08-04 15:51] LABS: Hematocrit 40 % (35-47); Hemoglobin 13.3 g/dl (12.0-16.0); Mean Corpuscular HGB Conc 33 g/dl (31-36); Mean Corpuscular Hemoglobin 30 pg (27-31); Mean Corpuscular Volume 89 fL (80-97); Mean Platelet Volume 8 um3 (7.4-10.4); Red Blood Count 4.49 10^6/ul (4.0-5.4); Red Cell Distribution Width 15 % (10.5-15); White Blood Count 9.3 10^3/ul (3.5-10.8)
[2016-08-04 16:10] LABS: Albumin 4.1 g/dL (3.2-5.2); C Reactive Protein 43.42 mg/L (< 5.00); Calcium 9.2 mg/dL (8.6-10.3); EGFR African American 42.6 (>60); EGFR Non-African American 33.2 (>60); Globulin 3.4 g/dL (2-4); Potassium 4.5 mmol/L (3.5-5.0); Total Bilirubin 0.4 mg/dL (0.2-1.0); Total Protein 7.5 g/dL (6.4-8.9); Troponin I 0.01 ng/mL (<0.04)
--- NOTE | 2016-08-04 16:17 | RAD ---
Indication: Shortness of breath. Single frontal view of the chest performed at 1604 hours was reviewed. Comparison is made with previous exam dated July 27, 2016. No mediastinal shift is noted. Heart is of normal size and configuration. Lung worthy appear clear. IMPRESSION: NO ACTIVE CARDIOPULMONARY DISEASE IS NOTED.
[2016-08-04] MEDS ORDERED: Furosemide IV* 10 MG/ML VIAL (40 MG) IV SLOW PU ONE (17:55)
[2016-08-04] MEDS ORDERED: Ondansetron INJ* 2 MG/ML VIAL IV PRN (17:55)
[2016-08-04] MEDS ORDERED: Acetaminophen TAB* 325 MG PO PRN (17:55)
[2016-08-04] MEDS ORDERED: Albuterol HFA INHALER* 8 gm MDI INH PRN (18:02)
[2016-08-04] MEDS ORDERED: cefTRIAXone VIAL(*) 1,000 MG in NS 0.9% 50 ML* 50 ML IVPB SCH (18:30)
[2016-08-04] MEDS: guaiFENesin LIQ* 100 MG/5 ML UDC PO PRN (20:18)
[2016-08-04] MEDS: Latanoprost 0.005%* 2.5 ml BTL BOTH EYES SCH (20:23)
[2016-08-04] MEDS: traMADol TAB* 50 MG PO PRN (20:23)
[2016-08-04] MEDS: CMC: Simvastatin TAB(NF) 10 MG TAB PO SCH (20:23)
--- NOTE | 2016-08-04 21:12 | HP ---
HISTORY AND PHYSICAL: DATE OF ADMISSION: 08/04/16 PRIMARY CARE PROVIDER: Dr. Joaquin. ATTENDING PHYSICIAN WHILE IN THE HOSPITAL: Familia Trejo MD * (report dictated by Margarito Dickens NP). CHIEF COMPLAINT: 1. Lower leg swelling. 2. Redness. 3. Cough. HISTORY OF PRESENT ILLNESS: Ms. Jones is an 85-year-old female patient who comes in to the ER today stating over the last 2 to 3 weeks she has had progressive worsening swelling and now last week increasing redness to the lower extremities. She recently was here in the hospital. She was discharged. She comes back today because of the worsening swelling in the lower extremities. She has been taking her Demadex as prescribed, but it just has not been helping her. The patient was concerned of the swelling and she saw nursing staff at [place] and they sent her into the hospital to be evaluated because they were actually more concerned that her legs were red and swollen. The patient says that the redness has been increasing. She states that she has been trying to elevate her legs, but this is just not helping. She also states that last night she developed a cough that has been productive of a yellow sputum at times. The patient says that she has been feeling short of breath particularly with exertion. She denies having any orthopnea and she denied having any nocturnal dyspnea. She states that she did not have any fevers or chills and she denied having any chest pain and denies any recent sick contacts. She denies having any rhinorrhea and denied having any sore throat. The patient came to the ER, was evaluated. There was concern for cellulitis, lower extremity swelling and the hospitalist service was asked to evaluate for admission. PAST MEDICAL HISTORY: Significant for: 1. Hypothyroidism. 2. Hypertension. 3. CHF. 4. Anxiety. 5. Depression. 6. Hyperlipidemia. 7. Osteoporosis. 8. Glaucoma. 9. COPD. 10. AFib. 11. GERD. 12. Diverticulitis. 13. CAD. PAST SURGICAL HISTORY: 1. She has had cardiac catheterization with stents. 2. 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 HOME MEDICATIONS: Include: 1. Tramadol 25 mg at bedtime as needed. 2. Guaifenesin 10 cc p.o. every 4 hours as needed. 3. Guaifenesin 600 mg p.o. every 12 hours as needed. 4. Demadex 20 mg daily. 5. Zocor 10 mg p.o. at bedtime. 6. Refresh 1 drop both eyes daily as needed. 7. Zofran 4 mg p.o. every 6 hours as needed. 8. Nitro 0.4 mg sublingual q.5 minutes x3 p.r.n. chest pain. 9. [place] 1 lozenge p.o. every 4 hours as needed. 10. Imodium 2 mg p.o. t.i.d. as needed. 11. Synthroid 75 mcg p.o. daily. 12. Latanoprost 1 drop both eyes at bedtime. 13. Atrovent 2 puffs inhaled t.i.d. 14. Flonase 2 sprays both nares daily. 15. Fluorometholone 1 drop both eyes daily. 16. Cardizem CD 240 mg daily. 17. D3, 50,000 units p.o. weekly. 18. Keflex 500 mg p.o. b.i.d. 19. Tums 500 mg p.o. 4 times a day as needed. 20. Biotin 300 mcg p.o. every other day. 21. Aspirin 81 mg daily. 22. Ventolin 2 puffs inhaled every 4 hours as needed. 23. Tylenol 650 mg every 4 hours as needed. 24. Xanax 0.125 mg p.o. every 4 hours as needed. ALLERGIES TO MEDICATIONS: Include LIPITOR, SULFA, PENICILLIN, PREDNISONE, and LOPRESSOR. FAMILY HISTORY: Mother was diabetic. Father had a history of heart disease. SOCIAL HISTORY: The patient is a former smoker. She does not drink alcohol. Surrogate decision maker is her daughter, Leisa. She lives at [place]. REVIEW OF SYSTEMS: There is no documented fever. She denies having any significant weight change. There was no double vision. She denies having any rhinorrhea or sore throat. No cough. She denies having any shortness of breath with the exception she does have dyspnea on exertion. No abdominal pain. No nausea. No vomiting. No chest pain. No orthopnea. She does admit to lower leg swelling. No dysuria. No frequency. No loss of consciousness. No pruritus. No skin ulcerations. Review of 14 systems completed, all others negative. PHYSICAL EXAMINATION GENERAL: At this time, Ms. Jones is an 85-year-old female patient. She is sitting in the ER stretcher. She does not appear to be in any acute distress. VITAL SIGNS: Blood pressure 136/85, pulse 97, respirations 22, O2 sat 94%, and temperature 97.9. HEENT: Head is atraumatic and normocephalic. Eyes: EOMs are intact. Sclerae were anicteric and not pale. Throat: Oral mucosa appears to be moist. No oropharyngeal erythema. NECK: Supple. LUNGS: Clear to auscultation. No wheezes, rales, or rhonchi. HEART: Sounds S1, S2. Regular rate and rhythm. No murmurs, rubs, or gallops. ABDOMEN: Soft, flat, and nontender. Bowel sounds present. EXTREMITIES: She had +3 pitting edema bilaterally. She had erythema to bilateral lower extremities. Left lower extremity, the erythema did extend up above the knee. She had no calf tenderness. She had 5/5 strength. NEUROLOGIC: She is awake, alert, and oriented x3. Tongue midline. Channel Director are equal. No gross focal deficits. SKIN: Intact. LABORATORY DATA AND DIAGNOSTIC STUDIES: Today revealed WBC 9.3, RBC of 4.49, hemoglobin 13.3, hematocrit of 40, platelet count of 239. Her sodium was 135, potassium was 4.5, chloride 100, bicarb 29, BUN 39, creatinine 1.50 which is right near her baseline, the glucose was 99, calcium 9.2. Total bili 0.4, AST 17, ALT 11, alk phos 91. Troponin 0.01. Albumin was 4.1. She had a chest x-ray obtained today which showed no active cardiopulmonary disease. There was an EKG as well, which showed normal sinus rhythm, rate of [address] elevations or T-wave inversions. It was reviewed to the previous EKG, appears to be similar. Old medical records were reviewed. ASSESSMENT AND PLAN: Ms. Jones is an 85-year-old female patient coming into the ER today with complaints of 3 weeks of worsening lower extremity swelling and redness. Hospitalist service was asked to evaluate for admission. She will be admitted under observation status for: 1. Lower extremity swelling: Again, I do not think she is in congestive heart failure at this point. She is not really having much shortness of breath. My plan would be to go ahead and elevate the extremities. I gave her 1 dose of IV Lasix for the time being. She does appear to have possible cellulitis. I am going to go ahead and put her on Rocephin IV for the time being, elevate the extremities and see if we can get the swelling and redness to improve. 2. Upper respiratory infection: She started having a cough. I did order supportive therapy for it. I do not think she has pneumonia or bronchitis just yet. It seems like she has a common cold. I will flu swab her to be safe, but for the time being, supportive care. I am not going to start her on antibiotics for this and this is probably an upper viral respiratory infection. 3. Hypothyroidism: Continue Synthroid. 4. Hypertension: Continue medications as prescribed. 5. History of congestive heart failure: I will get daily weights and I will give her a one-time dose of IV Lasix for the time being. 6. Anxiety and depression: Continue with supportive care. 7. Hyperlipidemia: Continue her statin therapy. 8. Osteoporosis: Continue medications as prescribed. 9. History of glaucoma: Continue her eye drops. 10. Chronic obstructive pulmonary disease: Albuterol p.r.n. has been ordered. We will follow. 11. Atrial fibrillation: She appears to be in a sinus rhythm. She will be placed on telemetry and we will follow. 12. Gastroesophageal reflux disease: Continue PPI therapy. 13. Diverticulitis: Not an active issue. 14. Coronary artery disease: She does take an aspirin and statin. We will continue. She is allergic to BETA BLOCKERS. 15. Code status: She wishes to rescind her DNR via full code. 16. Fluids, electrolytes, and nutrition: She can have a heart healthy diet. TIME SPENT: Time spent on the admission was 60 minutes; greater than half the time was spent [id number] with the patient obtaining my history and physical, other half of the time spent going over the plan of care with the patient and implementing plan of care. I did discuss the plan of care with my attending, Dr. Trejo; he is in agreement. MARGARITO DICKENS NP CC: Dr. Joaquin* [id number]/[facility] #: [id number] [facility]
[2016-08-04] MEDS: Benzocaine/Menthol LOZ* 1 LOZENGE PO PRN (21:17)
[2016-08-04] MEDS: Heparin VIAL(*) 5000 UNITS/ML VIAL (FIVE THOUSAND) SUBCUT SCH (21:44)
--- NOTE | 2016-08-04 21:50 | ED ---
Krishan Otero Michael, scribed for Connor Renteria MD on 08/04/16 at 1529 . Shortness of Breath - HPI Summary HPI Summary: 85 y/o female was BIBA to the ED presenting with SOB and a productive cough that started one day ago. The pt reports that the SOB is aggravated with walking which is abnormal for her. She also c/o bilateral LE swelling for the past 2 weeks. The pt was prescribed an abx for cellulitis. The pt was recently admitted to [facility] [place] Upon her discharge home on 07/28/16, the pt was prescribed Keflex and Tramadol for her LE pain. The PMHx is significant for CHF. - History of Current Complaint Chief Complaint: EDGeneral Time Seen by Provider: 08/04/16 14:53 Hx Obtained From: Patient, Medical Records Onset/Duration: Gradual Onset, Lasting Days, Still Present Timing: Intermittent Episodes Lasting: Current Severity: Moderate Dyspnea At: Exertion Aggrevating Factors: Movement Associated Signs & Symptoms: Cough (Productive), Edema - bilat LE swelling - Allergy/Home Medications Allergies/Adverse Reactions: Allergies Allergy/AdvReac Type Severity Reaction Status Date / Time Atorvastatin [From Lipitor] Allergy Mild Vomiting Verified 07/19/16 05:33 Sulfa Antibiotics Allergy Mild Vomiting Verified 07/19/16 05:33 Penicillin G Allergy Unknown Rash Verified 07/19/16 05:33 [From Penicillin Potassium-G] Metoprolol Allergy See Comment Verified 07/19/16 05:33 Prednisone Allergy See Comment Verified 07/19/16 05:33 PMH/Surg Hx/FS Hx/Imm Hx Endocrine/Hematology History: Reports: Hx Thyroid Disease Denies: Hx Diabetes Cardiovascular History: Reports: Hx Angina, Hx Congestive Heart Failure, Hx Coronary Artery Disease - STENT X2, Hx Hypercholesterolemia, Hx Hypertension, Other Cardiovascular Problems/Disorders - SVT Denies: Hx Myocardial Infarction, Hx Pacemaker/ICD, Hx Valvular Heart Disease Respiratory History: Reports: Hx Asthma, Hx Chronic Obstructive Pulmonary Disease (COPD) GI History: Reports: Hx Diverticulosis - diverticulitis, Hx Gastroesophageal Reflux Disease, Hx Ileostomy, Other GI Disorders - colostomy 14 years History: Denies: Hx Acute Renal Failure, Hx Benign Prostatic Hyperplasia, Hx Chronic Renal Failure Musculoskeletal History: Reports: Hx Arthritis Sensory History: Reports: Hx Cataracts, Hx Contacts or Glasses, Hx Hearing Problem Denies: Hx Hearing Aid Opthamlomology History: Reports: Hx Cataracts, Hx Contacts or Glasses Neurological History: Reports: Hx Headaches Psychiatric History: Reports: Hx Anxiety, Hx Depression Denies: Hx Panic Disorder - Surgical History Surgery Procedure, Year, and Place: BOWEL RESECTION 2004 WITH COLOSTOMY; CARDIAC STENTS 2011; left eye corneal transplant ; right eye cataract removed summer 2013 Infectious Disease History: No Infectious Disease History: Denies: Hx Clostridium Difficile, Hx Hepatitis, Hx Human Immunodeficiency Virus (HIV), Hx Shingles, Hx Tuberculosis, Hx Known/Suspected VRE, Hx Known/ Suspected VRSA, History Other Infectious Disease, Traveled Outside the [place] in Last 30 Days - Family History Known Family History: Positive: Cardiac Disease - CAD - Social History Occupation: Retired Lives: Assisted Living Alcohol Use: None Hx Substance Use: No Substance Use Type: Reports: None Hx Tobacco Use: Yes Smoking Status (MU): Former Smoker Type: Cigarettes Length of Time of Smoking/Using Tobacco: 50 YEARS Have You Smoked in the Last Year: No Review of Systems Positive: Shortness Of Breath, Cough Positive: Edema - bilat LE All Other Systems Reviewed And Are Negative: Yes Physical Exam Triage Information Reviewed: Yes Vital Signs On Initial Exam: Initial Vitals BP 116/45 08/04/16 14:57 Vital Signs Reviewed: Yes Appearance: Positive: Well-Appearing, No Pain Distress Skin: Positive: Warm, Skin Color Reflects Adequate Perfusion, Dry Head/Face: Positive: Normal Head/Face Inspection Eyes: Positive: Normal ENT: Positive: Normal ENT inspection Neck: Positive: Supple, Nontender Respiratory/Lung Sounds: Positive: Clear to Auscultation, Decreased Breath Sounds Cardiovascular: Positive: RRR Abdomen Description: Positive: Nontender, Soft Bowel Sounds: Positive: Present Musculoskeletal: Positive: Normal, Other - bilateral LE erythema and pinning edema Neurological: Positive: Normal Psychiatric: Positive: Affect/Mood Appropriate - [place] Coma Scale Coma Scale Total: 15 Diagnostics - Vital Signs Vital Signs Temp Pulse Resp BP Pulse Ox 08/04/16 15:00 101 18 121/59 88 08/04/16 14:59 99 F 97 18 121/69 88 08/04/16 14:57 116/45 - Laboratory Lab Results: Lab Results 08/04/16 08/04/16 08/04/16 Range/Units 15:40 15:40 15:40 WBC 9.3 (3.5-10.8) 10^3/ul RBC 4.49 (4.0-5.4) 10^6/ul Hgb 13.3 (12.0-16.0) g/dl Hct 40 (35-47) % MCV 89 (80-97) fL MCH 30 (27-31) pg MCHC 33 (31-36) g/dl RDW 15 (10.5-15) % Plt Count 269 (150-450) 10^3/ul MPV 8 (7.4-10.4) um3 Neut % (Auto) 71.2 (38-83) % Lymph % (Auto) 14.1 L (25-47) % [place] % (Auto) 9.5 H (1-9) % Eos % (Auto) 5.0 (0-6) % Baso % (Auto) 0.2 (0-2) % Absolute Neuts (auto) 6.6 (1.5-7.7) 10^3/ul Absolute Lymphs (auto) 1.3 (1.0-4.8) 10^3/ul Absolute Monos (auto) 0.9 H (0-0.8) 10^3/ul Absolute Eos (auto) 0.5 (0-0.6) 10^3/ul Absolute Basos (auto) 0 (0-0.2) 10^3/ul Absolute Nucleated RBC 0 10^3/ul Nucleated RBC % 0 Sodium 135 (133-145) mmol/L Potassium 4.5 (3.5-5.0) mmol/L Chloride 100 L (101-111) mmol/L Carbon Dioxide 29 (22-32) mmol/L Anion Gap 6 (2-11) mmol/L BUN 39 H (6-24) mg/dL Creatinine 1.50 H (0.51-0.95) mg/dL Est GFR ( Amer) 42.6 (>60) Est GFR (Non-Af Amer) 33.2 (>60) BUN/Creatinine Ratio 26.0 H (8-20) Glucose 99 (70-100) mg/dL Calcium 9.2 (8.6-10.3) mg/dL Total Bilirubin 0.40 (0.2-1.0) mg/dL AST 17 (13-39) U/L ALT 11 (7-52) U/L Alkaline Phosphatase 91 (34-104) U/L Troponin I 0.01 (<0.04) ng/mL C-Reactive Protein 43.42 H (< 5.00) mg/L B-Natriuretic Peptide 115 H ( - 100) pg/mL Total Protein 7.5 (6.4-8.9) g/dL Albumin 4.1 (3.2-5.2) g/dL Globulin 3.4 (2-4) g/dL Albumin/Globulin Ratio 1.2 (1-3) Procalcitonin (<0.6) ng/mL 08/04/16 Range/Units 15:40 WBC (3.5-10.8) 10^3/ul RBC (4.0-5.4) 10^6/ul Hgb (12.0-16.0) g/dl Hct (35-47) % MCV (80-97) fL MCH (27-31) pg MCHC (31-36) g/dl RDW (10.5-15) % Plt Count (150-450) 10^3/ul MPV (7.4-10.4) um3 Neut % (Auto) (38-83) % Lymph % (Auto) (25-47) % Rout[place] % (Auto) (1-9) % Eos % (Auto) (0-6) % Baso % (Auto) (0-2) % Absolute Neuts (auto) (1.5-7.7) 10^3/ul Absolute Lymphs (auto) (1.0-4.8) 10^3/ul Absolute Monos (auto) (0-0.8) 10^3/ul Absolute Eos (auto) (0-0.6) 10^3/ul Absolute Basos (auto) (0-0.2) 10^3/ul Absolute Nucleated RBC 10^3/ul Nucleated RBC % Sodium (133-145) mmol/L Potassium (3.5-5.0) mmol/L Chloride (101-111) mmol/L Carbon Dioxide (22-32) mmol/L Anion Gap (2-11) mmol/L BUN (6-24) mg/dL Creatinine (0.51-0.95) mg/dL Est GFR ( Amer) (>60) Est GFR (Non-Af Amer) (>60) BUN/Creatinine Ratio (8-20) Glucose (70-100) mg/dL Calcium (8.6-10.3) mg/dL Total Bilirubin (0.2-1.0) mg/dL AST (13-39) U/L ALT (7-52) U/L Alkaline Phosphatase (34-104) U/L Troponin I (<0.04) ng/mL C-Reactive Protein (< 5.00) mg/L B-Natriuretic Peptide ( - 100) pg/mL Total Protein (6.4-8.9) g/dL Albumin (3.2-5.2) g/dL Globulin (2-4) g/dL Albumin/Globulin Ratio (1-3) Procalcitonin 0.1 (<0.6) ng/mL Result Diagrams: 08/04/16 15:40 08/04/16 15:40 Lab Statement: Any lab studies that have been ordered have been reviewed, and results considered in the medical decision making process. - Radiology CXR Xray Interpretation: No Acute Changes Radiology Interpretation Completed By: Radiologist - EKG EK EKG Rhythm: Sinus Rhythm - 93 EKG Interpretation: non specific changes diffusely Course/Dx - Course Course Of Treatment: Discussed patient care with Dr. Lawrence (Hospitalist) at 1656. The pt will be admitted to [facility] [place]. - Diagnoses Provider Diagnoses: Peripheral edema, CHF (congestive heart failure) Discharge - Discharge Plan Condition: Stable Disposition: ADMITTED TO [facility] Discharge Disposition Comment: accepted by Dr. Lawrence The documentation as recorded by the Krishan lauren Michael accurately reflects the service I personally performed and the decisions made by , Connor Renteria MD.
[2016-08-04] MEDS: ALPRAZolam TAB* 0.25 MG PO PRN (23:07)
[2016-08-05] MEDS: Benzocaine/Menthol LOZ* 1 LOZENGE PO PRN ×2 (02:49→10:12)
[2016-08-05] MEDS: Heparin VIAL(*) 5000 UNITS/ML VIAL (FIVE THOUSAND) SUBCUT SCH ×3 (05:32→21:33)
[2016-08-05] MEDS: Levothyroxine TAB* 75 MCG TAB PO SCH (05:32)
[2016-08-05 05:59] LABS: Hematocrit 34 % (35-47); Hemoglobin 11.5 g/dl (12.0-16.0); Mean Corpuscular HGB Conc 33 g/dl (31-36); Mean Corpuscular Hemoglobin 30 pg (27-31); Mean Corpuscular Volume 89 fL (80-97); Mean Platelet Volume 8 um3 (7.4-10.4); Red Blood Count 3.88 10^6/ul (4.0-5.4); Red Cell Distribution Width 15 % (10.5-15); White Blood Count 7.8 10^3/ul (3.5-10.8)
[2016-08-05 06:18] LABS: BUN/Creatinine Ratio 26.6 (8-20); Calcium 8.2 mg/dL (8.6-10.3); EGFR African American 46.6 (>60); EGFR Non-African American 36.2 (>60); Potassium 4.1 mmol/L (3.5-5.0)
[2016-08-05] MEDS: ALPRAZolam TAB* 0.25 MG PO PRN (06:27)
[2016-08-05] MEDS: Torsemide TAB* 20 MG PO SCH ×2 (10:11→10:37)
[2016-08-05] MEDS: Aspirin EC Low Dose* 81 MG TAB.EC PO SCH (10:11)
[2016-08-05] MEDS: Diltiazem CD CAP* 240 MG PO SCH (10:12)
[2016-08-05] MEDS: guaiFENesin LIQ* 100 MG/5 ML UDC PO PRN ×2 (10:13→10:24)
[2016-08-05] MEDS ORDERED: Furosemide IV* 10 MG/ML 10 ML VIAL (100 MG) IV ONE (10:22)
[2016-08-05] MEDS: DOXYcycline CAP(*) 100 MG PO SCH ×2 (11:14→21:34)
[2016-08-05] MEDS: Benzonatate CAP* 100 MG PO PRN ×2 (11:14→21:34)
--- NOTE | 2016-08-05 11:37 | PN ---
Subjective Date of Service: 08/05/16 Interval History: Patient seen this morning. Had loud, hacking cough all morning, says this has been going on for two days. Not much sputum production. Says legs seem a bit improved today in terms of edema and erythema. Still painful. No fever or chills. Family History: Unchanged from Admission Social History: Unchanged from Admission Past Medical History: Unchanged from Admission Objective Active Medications: Acetaminophen (Tylenol Tab*) 650 mg PO Q4H PRN Albuterol (Ventolin Hfa Inhaler*) 2 puff INH Q4H PRN Alprazolam (Xanax Tab*) 0.125 mg PO Q4HR PRN Aspirin (Aspirin Ec Low Dose*) 81 mg PO DAILY [facility] Benzonatate (Tessalon Cap*) 100 mg PO TID PRN Diltiazem HCl (Cardizem Cd Cap*) 240 mg PO DAILY [facility] Doxycycline Hyclate (Vibramycin Cap(*)) 100 mg PO BID [facility] Guaifenesin (Robitussin*) 10 ml PO Q4HR PRN Heparin Sodium (Porcine) (Heparin Vial(*)) 5,000 units SUBCUT Q8HR [facility] Latanoprost (Xalatan 0.005%*) 1 drop BOTH EYES BEDTIME [facility] Levothyroxine Sodium (Synthroid Tab*) 75 mcg PO QAM@0600 [facility] Ondansetron HCl (Zofran Inj*) 4 mg IV Q6H PRN Simvastatin (Zocor(Nf)) 10 mg PO BEDTIME [facility] Throat Lozenges (Chloraseptic Rosaura*) 1 rosaura PO Q4H PRN Tramadol HCl (Ultram*) 25 mg PO BEDTIME PRN Tramadol HCl (Ultram*) 25 mg PO Q6H PRN Vital Signs 08/04/16 08/04/16 08/04/16 17:00 17:41 19:00 Temperature 97.9 F 98.6 F Pulse Rate 101 97 100 Respiratory 19 24 20 Rate Blood Pressure 136/85 136/85 141/77 (mmHg) O2 Sat by Pulse 94 95 Oximetry 08/05/16 08/05/16 08/05/16 08:00 08:07 08:27 Temperature 97.8 F Pulse Rate 88 Respiratory 16 20 Rate Blood Pressure 146/73 (mmHg) O2 Sat by Pulse 97 97 Oximetry Oxygen Devices in Use Now: Nasal Cannula - 1L Appearance: Elderly, F, laying in bed with hacking cough Eyes: No Scleral Icterus Ears/Nose/Mouth/Throat: Mucous Membranes Moist Neck: NL Appearance and Movements; NL JVP Respiratory: Symmetrical Chest Expansion and Respiratory Effort, Clear to Auscultation Cardiovascular: NL Sounds; No Murmurs; No JVD, RRR Abdominal: NL Sounds; No Tenderness; No Distention Lymphatic: No Cervical Adenopathy Extremities: - - B/L LE pitting edema to below knees, some mild erythema in B/L LEs mostly over shins/calves, some tracking up medial R thigh, TTP, not warm Skin: - Neurological: Alert and Oriented x 3 Result Diagrams: 08/05/16 05:42 08/05/16 05:42 Additional Lab and Data: Lab Results 08/04/16 08/04/16 08/04/16 Range/Units 15:40 15:40 15:40 WBC 9.3 (3.5-10.8) 10^3/ul RBC 4.49 (4.0-5.4) 10^6/ul Hgb 13.3 (12.0-16.0) g/dl Hct 40 (35-47) % MCV 89 (80-97) fL MCH 30 (27-31) pg MCHC 33 (31-36) g/dl RDW 15 (10.5-15) % Plt Count 269 (150-450) 10^3/ul MPV 8 (7.4-10.4) um3 Neut % (Auto) 71.2 (38-83) % Lymph % (Auto) 14.1 L (25-47) % Allen % (Auto) 9.5 H (1-9) % Eos % (Auto) 5.0 (0-6) % Baso % (Auto) 0.2 (0-2) % Absolute Neuts (auto) 6.6 (1.5-7.7) 10^3/ul Absolute Lymphs (auto) 1.3 (1.0-4.8) 10^3/ul Absolute Monos (auto) 0.9 H (0-0.8) 10^3/ul Absolute Eos (auto) 0.5 (0-0.6) 10^3/ul Absolute Basos (auto) 0 (0-0.2) 10^3/ul Absolute Nucleated RBC 0 10^3/ul Nucleated RBC % 0 Sodium 135 (133-145) mmol/L Potassium 4.5 (3.5-5.0) mmol/L Chloride 100 L (101-111) mmol/L Carbon Dioxide 29 (22-32) mmol/L Anion Gap 6 (2-11) mmol/L BUN 39 H (6-24) mg/dL Creatinine 1.50 H (0.51-0.95) mg/dL Est GFR ( Amer) 42.6 (>60) Est GFR (Non-Af Amer) 33.2 (>60) BUN/Creatinine Ratio 26.0 H (8-20) Glucose 99 (70-100) mg/dL Calcium 9.2 (8.6-10.3) mg/dL Total Bilirubin 0.40 (0.2-1.0) mg/dL AST 17 (13-39) U/L ALT 11 (7-52) U/L Alkaline Phosphatase 91 (34-104) U/L Troponin I 0.01 (<0.04) ng/mL C-Reactive Protein 43.42 H (< 5.00) mg/L B-Natriuretic Peptide 115 H ( - 100) pg/mL Total Protein 7.5 (6.4-8.9) g/dL Albumin 4.1 (3.2-5.2) g/dL Globulin 3.4 (2-4) g/dL Albumin/Globulin Ratio 1.2 (1-3) Procalcitonin (<0.6) ng/mL 08/04/16 Range/Units 15:40 WBC (3.5-10.8) 10^3/ul RBC (4.0-5.4) 10^6/ul Hgb (12.0-16.0) g/dl Hct (35-47) % MCV (80-97) fL MCH (27-31) pg MCHC (31-36) g/dl RDW (10.5-15) % Plt Count (150-450) 10^3/ul MPV (7.4-10.4) um3 Neut % (Auto) (38-83) % Lymph % (Auto) (25-47) % Allen % (Auto) (1-9) % Eos % (Auto) (0-6) % Baso % (Auto) (0-2) % Absolute Neuts (auto) (1.5-7.7) 10^3/ul Absolute Lymphs (auto) (1.0-4.8) 10^3/ul Absolute Monos (auto) (0-0.8) 10^3/ul Absolute Eos (auto) (0-0.6) 10^3/ul Absolute Basos (auto) (0-0.2) 10^3/ul Absolute Nucleated RBC 10^3/ul Nucleated RBC % Sodium (133-145) mmol/L Potassium (3.5-5.0) mmol/L Chloride (101-111) mmol/L Carbon Dioxide (22-32) mmol/L Anion Gap (2-11) mmol/L BUN (6-24) mg/dL Creatinine (0.51-0.95) mg/dL Est GFR ( Amer) (>60) Est GFR (Non-Af Amer) (>60) BUN/Creatinine Ratio (8-20) Glucose (70-100) mg/dL Calcium (8.6-10.3) mg/dL Total Bilirubin (0.2-1.0) mg/dL AST (13-39) U/L ALT (7-52) U/L Alkaline Phosphatase (34-104) U/L Troponin I (<0.04) ng/mL C-Reactive Protein (< 5.00) mg/L B-Natriuretic Peptide ( - 100) pg/mL Total Protein (6.4-8.9) g/dL Albumin (3.2-5.2) g/dL Globulin (2-4) g/dL Albumin/Globulin Ratio (1-3) Procalcitonin 0.1 (<0.6) ng/mL Microbiology and Other Data: Microbiology 08/04/16 19:18 Influenza Types A,B Antigen (LIZ) - Final Nasal Specimen received for Influenza A/B Molecular testing Assess/Plan/Problems-Billing Assessment: B/L LE leg pain and swelling, URI likely viral in an 85 yo F with hx of HTN, CAD , COPD, anxiety, AFib, GERD - Patient Problems (1) Leg edema Current Visit: No Comment: and erythema. Seems unlikely patient has B/L LE cellulitis, I suspect pain is likely due to edema mostly. Will continue IV Lasix again today as she had good UOP. Likely fluid acculumation from venous stasis as recent echo was unremarkable. Will switch to PO Doxycyline (was on Keflex as outpatient) in case she has some element of cellulitis, this will cover respiratory pathogens as well. May be able to stop this in next 1-2 days. Keep LE elevated. (2) URI (upper respiratory infection) Current Visit: Yes Comment: No evidence of PNA on CXR. Check procalcitonin. Continue supportive care. (3) History of hypertension Current Visit: No Comment: Continue home Cardizem (4) History of hypothyroidism Current Visit: No Comment: Continue levothyroxine. (5) Hx of coronary artery disease Current Visit: No Comment: Continue asa, statin (6) Anxiety Current Visit: No Comment: Continue alprazolam. (7) DVT prophylaxis Current Visit: No Comment: SQ heparin
[2016-08-05] MEDS: traMADol TAB* 50 MG PO PRN ×2 (13:52→22:12)
[2016-08-05] MEDS: Albuterol 2.5 MG/3 ML NEB.SOL* (0.083%) INH PRN (16:06)
[2016-08-05] MEDS: CMC: Simvastatin TAB(NF) 10 MG TAB PO SCH (21:34)
[2016-08-05] MEDS: Latanoprost 0.005%* 2.5 ml BTL BOTH EYES SCH (21:34)
[2016-08-06] MEDS: Benzocaine/Menthol LOZ* 1 LOZENGE PO PRN ×3 (03:15→16:52)
[2016-08-06] MEDS: ALPRAZolam TAB* 0.25 MG PO PRN ×3 (03:15→18:57)
[2016-08-06] MEDS: traMADol TAB* 50 MG PO PRN ×3 (05:03→22:10)
[2016-08-06] MEDS: Levothyroxine TAB* 75 MCG TAB PO SCH (05:05)
[2016-08-06] MEDS: Heparin VIAL(*) 5000 UNITS/ML VIAL (FIVE THOUSAND) SUBCUT SCH ×3 (05:07→22:13)
[2016-08-06] MEDS: Aspirin EC Low Dose* 81 MG TAB.EC PO SCH (10:20)
[2016-08-06] MEDS: Diltiazem CD CAP* 240 MG PO SCH (10:20)
[2016-08-06] MEDS: DOXYcycline CAP(*) 100 MG PO SCH ×2 (10:21→22:13)
[2016-08-06] MEDS: guaiFENesin LIQ* 100 MG/5 ML UDC PO PRN ×3 (10:23→18:59)
[2016-08-06] MEDS: Albuterol 2.5 MG/3 ML NEB.SOL* (0.083%) INH PRN (12:01)
[2016-08-06] MEDS ORDERED: Furosemide IV* 10 MG/ML 10 ML VIAL (100 MG) IV ONE (12:39)
[2016-08-06] MEDS: Benzonatate CAP* 100 MG PO PRN (13:54)
--- NOTE | 2016-08-06 15:35 | PN ---
Subjective Family History: Unchanged from Admission Social History: Unchanged from Admission Past Medical History: Unchanged from Admission Objective Active Medications: Acetaminophen (Tylenol Tab*) 650 mg PO Q4H PRN PRN Reason: FEVER/PAIN Last Admin: 08/05/16 02:49 Dose: 650 mg Albuterol (Ventolin 2.5 Mg/3 Ml Neb.Karolina*) 2.5 mg INH Q4H PRN PRN Reason: SOB/WHEEZING Last Admin: 08/06/16 12:01 Dose: 2.5 mg Albuterol/Ipratropium (Duoneb (Albuterol 2.5 Mg/Ipratropium 0.5 Mg)) 1 neb INH TID [facility] Alprazolam (Xanax Tab*) 0.125 mg PO Q4HR PRN PRN Reason: ANXIETY Last Admin: 08/06/16 08:26 Dose: 0.125 mg Aspirin (Aspirin Ec Low Dose*) 81 mg PO DAILY [facility] Last Admin: 08/06/16 10:20 Dose: 81 mg Benzonatate (Tessalon Cap*) 100 mg PO TID PRN PRN Reason: COUGH Last Admin: 08/06/16 13:54 Dose: 100 mg Diltiazem HCl (Cardizem Cd Cap*) 240 mg PO DAILY [facility] Last Admin: 08/06/16 10:20 Dose: 240 mg Doxycycline Hyclate (Vibramycin Cap(*)) 100 mg PO BID [facility] Last Admin: 08/06/16 10:21 Dose: 100 mg Furosemide (Lasix Iv*) 40 mg IV 0800,1700 [facility] Guaifenesin (Robitussin*) 10 ml PO Q4HR PRN PRN Reason: COUGH Last Admin: 08/06/16 13:49 Dose: 10 ml Heparin Sodium (Porcine) (Heparin Vial(*)) 5,000 units SUBCUT Q8HR [facility] Last Admin: 08/06/16 13:53 Dose: 5,000 units Latanoprost (Xalatan 0.005%*) 1 drop BOTH EYES BEDTIME [facility] Last Admin: 08/05/16 21:34 Dose: 1 drop Levothyroxine Sodium (Synthroid Tab*) 75 mcg PO QAM@0600 [facility] Last Admin: 08/06/16 05:05 Dose: 75 mcg Ondansetron HCl (Zofran Inj*) 4 mg IV Q6H PRN PRN Reason: NAUSEA Simvastatin (Zocor(Nf)) 10 mg PO BEDTIME [facility] Last Admin: 08/05/16 21:34 Dose: 10 mg Throat Lozenges (Chloraseptic Rosaura*) 1 rosaura PO Q4H PRN PRN Reason: COUGH Last Admin: 08/06/16 10:26 Dose: 1 rosaura Tramadol HCl (Ultram*) 25 mg PO BEDTIME PRN PRN Reason: PAIN Last Admin: 08/06/16 15:06 Dose: 25 mg Tramadol HCl (Ultram*) 25 mg PO Q6H PRN PRN Reason: PAIN Last Admin: 08/06/16 05:03 Dose: 25 mg Vital Signs 08/05/16 08/05/16 08/05/16 15:40 15:52 16:00 Temperature 98.1 F Pulse Rate 98 Respiratory 20 18 Rate Blood Pressure 148/83 (mmHg) O2 Sat by Pulse 94 94 Oximetry 08/05/16 08/05/16 08/05/16 16:10 20:00 22:12 Temperature Pulse Rate 89 97 Respiratory 18 20 20 Rate Blood Pressure (mmHg) O2 Sat by Pulse 93 91 Oximetry 08/06/16 08/06/16 08/06/16 00:00 00:05 00:07 Temperature 98.3 F Pulse Rate 85 Respiratory 20 Rate Blood Pressure 124/57 (mmHg) O2 Sat by Pulse 91 85 81 Oximetry 08/06/16 08/06/16 08/06/16 00:12 03:15 05:03 Temperature Pulse Rate Respiratory 18 18 20 Rate Blood Pressure (mmHg) O2 Sat by Pulse 92 Oximetry 08/06/16 08/06/16 08/06/16 05:15 07:03 07:31 Temperature 99.3 F Pulse Rate 86 Respiratory 20 18 18 Rate Blood Pressure 136/87 (mmHg) O2 Sat by Pulse 95 Oximetry 08/06/16 08/06/16 08/06/16 08:26 09:00 09:24 Temperature Pulse Rate 86 Respiratory 18 18 18 Rate Blood Pressure (mmHg) O2 Sat by Pulse 95 95 Oximetry 08/06/16 08/06/16 08/06/16 10:26 11:59 12:02 Temperature 98.0 F Pulse Rate 96 75 Respiratory 16 16 18 Rate Blood Pressure 152/89 (mmHg) O2 Sat by Pulse 94 95 Oximetry 08/06/16 15:06 Temperature Pulse Rate Respiratory 14 Rate Blood Pressure (mmHg) O2 Sat by Pulse Oximetry Oxygen Devices in Use Now: Nasal Cannula - 1L Result Diagrams: 08/05/16 05:42 08/05/16 05:42 Additional Lab and Data: Lab Results 08/04/16 08/04/16 08/04/16 Range/Units 15:40 15:40 15:40 WBC 9.3 (3.5-10.8) 10^3/ul RBC 4.49 (4.0-5.4) 10^6/ul Hgb 13.3 (12.0-16.0) g/dl Hct 40 (35-47) % MCV 89 (80-97) fL MCH 30 (27-31) pg MCHC 33 (31-36) g/dl RDW 15 (10.5-15) % Plt Count 269 (150-450) 10^3/ul MPV 8 (7.4-10.4) um3 Neut % (Auto) 71.2 (38-83) % Lymph % (Auto) 14.1 L (25-47) % Harmon % (Auto) 9.5 H (1-9) % Eos % (Auto) 5.0 (0-6) % Baso % (Auto) 0.2 (0-2) % Absolute Neuts (auto) 6.6 (1.5-7.7) 10^3/ul Absolute Lymphs (auto) 1.3 (1.0-4.8) 10^3/ul Absolute Monos (auto) 0.9 H (0-0.8) 10^3/ul Absolute Eos (auto) 0.5 (0-0.6) 10^3/ul Absolute Basos (auto) 0 (0-0.2) 10^3/ul Absolute Nucleated RBC 0 10^3/ul Nucleated RBC % 0 Sodium 135 (133-145) mmol/L Potassium 4.5 (3.5-5.0) mmol/L Chloride 100 L (101-111) mmol/L Carbon Dioxide 29 (22-32) mmol/L Anion Gap 6 (2-11) mmol/L BUN 39 H (6-24) mg/dL Creatinine 1.50 H (0.51-0.95) mg/dL Est GFR ( Amer) 42.6 (>60) Est GFR (Non-Af Amer) 33.2 (>60) BUN/Creatinine Ratio 26.0 H (8-20) Glucose 99 (70-100) mg/dL Calcium 9.2 (8.6-10.3) mg/dL Total Bilirubin 0.40 (0.2-1.0) mg/dL AST 17 (13-39) U/L ALT 11 (7-52) U/L Alkaline Phosphatase 91 (34-104) U/L Troponin I 0.01 (<0.04) ng/mL C-Reactive Protein 43.42 H (< 5.00) mg/L B-Natriuretic Peptide 115 H ( - 100) pg/mL Total Protein 7.5 (6.4-8.9) g/dL Albumin 4.1 (3.2-5.2) g/dL Globulin 3.4 (2-4) g/dL Albumin/Globulin Ratio 1.2 (1-3) Procalcitonin (<0.6) ng/mL 08/04/16 Range/Units 15:40 WBC (3.5-10.8) 10^3/ul RBC (4.0-5.4) 10^6/ul Hgb (12.0-16.0) g/dl Hct (35-47) % MCV (80-97) fL MCH (27-31) pg MCHC (31-36) g/dl RDW (10.5-15) % Plt Count (150-450) 10^3/ul MPV (7.4-10.4) um3 Neut % (Auto) (38-83) % Lymph % (Auto) (25-47) % Harmon % (Auto) (1-9) % Eos % (Auto) (0-6) % Baso % (Auto) (0-2) % Absolute Neuts (auto) (1.5-7.7) 10^3/ul Absolute Lymphs (auto) (1.0-4.8) 10^3/ul Absolute Monos (auto) (0-0.8) 10^3/ul Absolute Eos (auto) (0-0.6) 10^3/ul Absolute Basos (auto) (0-0.2) 10^3/ul Absolute Nucleated RBC 10^3/ul Nucleated RBC % Sodium (133-145) mmol/L Potassium (3.5-5.0) mmol/L Chloride (101-111) mmol/L Carbon Dioxide (22-32) mmol/L Anion Gap (2-11) mmol/L BUN (6-24) mg/dL Creatinine (0.51-0.95) mg/dL Est GFR ( Amer) (>60) Est GFR (Non-Af Amer) (>60) BUN/Creatinine Ratio (8-20) Glucose (70-100) mg/dL Calcium (8.6-10.3) mg/dL Total Bilirubin (0.2-1.0) mg/dL AST (13-39) U/L ALT (7-52) U/L Alkaline Phosphatase (34-104) U/L Troponin I (<0.04) ng/mL C-Reactive Protein (< 5.00) mg/L B-Natriuretic Peptide ( - 100) pg/mL Total Protein (6.4-8.9) g/dL Albumin (3.2-5.2) g/dL Globulin (2-4) g/dL Albumin/Globulin Ratio (1-3) Procalcitonin 0.1 (<0.6) ng/mL Microbiology and Other Data: Microbiology 08/04/16 19:18 Influenza Types A,B Antigen (LIZ) - Final Nasal Specimen received for Influenza A/B Molecular testing Assess/Plan/Problems-Billing Assessment: B/L LE leg pain and swelling, URI likely viral in an 85 yo F with hx of HTN, CAD , COPD, anxiety, AFib, GERD 85 yo F who has a h/o stable CAD, HTN, hypothyroidism and anxiety - Patient Problems (1) Leg edema Comment: and erythema. Seems unlikely patient has B/L LE cellulitis, I suspect pain is likely due to edema mostly. Will continue IV Lasix again today as she had good UOP. Likely fluid acculumation from venous stasis as recent Echo was unremarkable. will cont PO Doxycyline (was on Keflex as outpatient) in case she has some element of cellulitis, this will cover respiratory pathogens as well. Teds ordered (2) URI (upper respiratory infection) Comment: No evidence of PNA on CXR. procalcitonin neg Continue supportive care. (3) Hx of congestive heart failure Comment: In acute exacerbation Acute, diastolic Holding Demadex. cont IV Lasix (4) CKD (chronic kidney disease) Comment: Creatinine is at baseline. (5) Hx of coronary artery disease Comment: Continue asa, statin (6) History of hypertension Comment: Continue home Cardizem (7) History of hypothyroidism Comment: Continue levothyroxine. (8) DVT prophylaxis Comment: SQ heparin Status and Disposition: inpatient, may be able to go back to [place] in AM.
[2016-08-06] MEDS: Furosemide IV* 10 MG/ML 10 ML VIAL (100 MG) IV SCH (16:52)
[2016-08-06] MEDS: Albuterol/Ipratropium NEB.SOL* Albuterol 2.5 MG/Ipratropium 0.5 MG 3 ML INH SCH (19:50)
[2016-08-06] MEDS: CMC: Simvastatin TAB(NF) 10 MG TAB PO SCH (22:13)
[2016-08-06] MEDS: Latanoprost 0.005%* 2.5 ml BTL BOTH EYES SCH (22:14)
[2016-08-07] MEDS: ALPRAZolam TAB* 0.25 MG PO PRN ×4 (01:40→22:20)
[2016-08-07] MEDS: Benzonatate CAP* 100 MG PO PRN ×2 (01:45→13:33)
[2016-08-07] MEDS: Benzocaine/Menthol LOZ* 1 LOZENGE PO PRN (01:45)
[2016-08-07] MEDS: Heparin VIAL(*) 5000 UNITS/ML VIAL (FIVE THOUSAND) SUBCUT SCH ×3 (06:08→21:22)
[2016-08-07] MEDS: Levothyroxine TAB* 75 MCG TAB PO SCH (06:14)
[2016-08-07 07:29] LABS: BUN/Creatinine Ratio 20.3 (8-20); Calcium 8.9 mg/dL (8.6-10.3); EGFR African American 56.3 (>60); EGFR Non-African American 43.7 (>60); Potassium 3.9 mmol/L (3.5-5.0)
[2016-08-07] MEDS: Furosemide IV* 10 MG/ML 10 ML VIAL (100 MG) IV SCH ×2 (07:31→17:09)
[2016-08-07] MEDS: Albuterol/Ipratropium NEB.SOL* Albuterol 2.5 MG/Ipratropium 0.5 MG 3 ML INH SCH ×3 (08:04→19:46)
[2016-08-07] MEDS: Diltiazem CD CAP* 240 MG PO SCH (08:59)
[2016-08-07] MEDS: Aspirin EC Low Dose* 81 MG TAB.EC PO SCH (09:00)
[2016-08-07] MEDS: DOXYcycline CAP(*) 100 MG PO SCH ×2 (09:00→21:20)
--- NOTE | 2016-08-07 11:28 | PN ---
Subjective Date of Service: 08/07/16 Interval History: pt feels "much better", but "too weak to go back to [facility] today" Family History: Unchanged from Admission Social History: Unchanged from Admission Past Medical History: Unchanged from Admission Objective Active Medications: Acetaminophen (Tylenol Tab*) 650 mg PO Q4H PRN PRN Reason: FEVER/PAIN Last Admin: 08/05/16 02:49 Dose: 650 mg Albuterol (Ventolin 2.5 Mg/3 Ml Neb.Karolina*) 2.5 mg INH Q4H PRN PRN Reason: SOB/WHEEZING Last Admin: 08/06/16 12:01 Dose: 2.5 mg Albuterol/Ipratropium (Duoneb (Albuterol 2.5 Mg/Ipratropium 0.5 Mg)) 1 neb INH TID [facility] Last Admin: 08/07/16 08:04 Dose: 1 neb Alprazolam (Xanax Tab*) 0.125 mg PO Q4HR PRN PRN Reason: ANXIETY Last Admin: 08/07/16 07:29 Dose: 0.125 mg Aspirin (Aspirin Ec Low Dose*) 81 mg PO DAILY [facility] Last Admin: 08/07/16 09:00 Dose: 81 mg Benzonatate (Tessalon Cap*) 100 mg PO TID PRN PRN Reason: COUGH Last Admin: 08/07/16 01:45 Dose: 100 mg Diltiazem HCl (Cardizem Cd Cap*) 240 mg PO DAILY [facility] Last Admin: 08/07/16 08:59 Dose: 240 mg Doxycycline Hyclate (Vibramycin Cap(*)) 100 mg PO BID [facility] Last Admin: 08/07/16 09:00 Dose: 100 mg Furosemide (Lasix Iv*) 40 mg IV 0800,1700 [facility] Last Admin: 08/07/16 07:31 Dose: 40 mg Guaifenesin (Robitussin*) 10 ml PO Q4HR PRN PRN Reason: COUGH Last Admin: 08/06/16 18:59 Dose: 10 ml Heparin Sodium (Porcine) (Heparin Vial(*)) 5,000 units SUBCUT Q8HR [facility] Last Admin: 08/07/16 06:08 Dose: 5,000 units Latanoprost (Xalatan 0.005%*) 1 drop BOTH EYES BEDTIME [facility] Last Admin: 08/06/16 22:14 Dose: 1 drop Levothyroxine Sodium (Synthroid Tab*) 75 mcg PO QAM@0600 [facility] Last Admin: 08/07/16 06:14 Dose: 75 mcg Ondansetron HCl (Zofran Inj*) 4 mg IV Q6H PRN PRN Reason: NAUSEA Simvastatin (Zocor(Nf)) 10 mg PO BEDTIME [facility] Last Admin: 08/06/16 22:13 Dose: 10 mg Throat Lozenges (Chloraseptic Rosaura*) 1 rosaura PO Q4H PRN PRN Reason: COUGH Last Admin: 08/07/16 01:45 Dose: 1 rosaura Tramadol HCl (Ultram*) 25 mg PO BEDTIME PRN PRN Reason: PAIN Last Admin: 08/06/16 15:06 Dose: 25 mg Tramadol HCl (Ultram*) 25 mg PO Q6H PRN PRN Reason: PAIN Last Admin: 08/06/16 22:10 Dose: 25 mg Vital Signs 08/06/16 08/06/16 08/06/16 11:59 12:02 15:06 Temperature 98.0 F Pulse Rate 96 75 Respiratory 16 18 14 Rate Blood Pressure 152/89 (mmHg) O2 Sat by Pulse 94 95 Oximetry 08/06/16 08/06/16 08/06/16 16:00 16:48 17:06 Temperature 98.1 F Pulse Rate 101 Respiratory 16 20 Rate Blood Pressure 137/62 (mmHg) O2 Sat by Pulse 96 94 Oximetry 08/06/16 08/06/16 08/06/16 18:57 19:06 19:23 Temperature 98.7 F Pulse Rate 92 Respiratory 16 20 16 Rate Blood Pressure 159/66 (mmHg) O2 Sat by Pulse 93 Oximetry 08/06/16 08/06/16 08/06/16 19:51 19:52 20:00 Temperature Pulse Rate 89 84 Respiratory 18 18 18 Rate Blood Pressure (mmHg) O2 Sat by Pulse 91 96 Oximetry 08/06/16 08/06/16 08/06/16 20:57 22:10 23:54 Temperature 98.1 F Pulse Rate 87 Respiratory 18 18 19 Rate Blood Pressure 137/63 (mmHg) O2 Sat by Pulse 92 Oximetry 08/07/16 08/07/16 08/07/16 00:10 01:40 03:40 Temperature Pulse Rate Respiratory 18 18 18 Rate Blood Pressure (mmHg) O2 Sat by Pulse Oximetry 08/07/16 08/07/16 08/07/16 07:29 07:48 08:00 Temperature 98.0 F Pulse Rate 83 Respiratory 18 15 20 Rate Blood Pressure 146/73 (mmHg) O2 Sat by Pulse 95 Oximetry 08/07/16 08/07/16 08:06 09:25 Temperature Pulse Rate 93 Respiratory 16 18 Rate Blood Pressure (mmHg) O2 Sat by Pulse 92 Oximetry Oxygen Devices in Use Now: None Appearance: 85 yo F in nAd, aAOx3 Eyes: No Scleral Icterus, PERRLA Ears/Nose/Mouth/Throat: NL Teeth, Lips, Gums, Mucous Membranes Moist Neck: NL Appearance and Movements; NL JVP, Trachea Midline Respiratory: Symmetrical Chest Expansion and Respiratory Effort, Clear to Auscultation Cardiovascular: NL Sounds; No Murmurs; No JVD, RRR Abdominal: NL Sounds; No Tenderness; No Distention Lymphatic: No Cervical Adenopathy Extremities: No Clubbing, Cyanosis, - - +1 pitting pedal edema b/l with veous stasis chronic appearing erythema-improving Skin: No Nodules or Sclerosis Neurological: Alert and Oriented x 3, NL Muscle Strength and Tone Result Diagrams: 08/05/16 05:42 08/07/16 06:10 Additional Lab and Data: Lab Results 08/04/16 08/04/16 08/04/16 Range/Units 15:40 15:40 15:40 WBC 9.3 (3.5-10.8) 10^3/ul RBC 4.49 (4.0-5.4) 10^6/ul Hgb 13.3 (12.0-16.0) g/dl Hct 40 (35-47) % MCV 89 (80-97) fL MCH 30 (27-31) pg MCHC 33 (31-36) g/dl RDW 15 (10.5-15) % Plt Count 269 (150-450) 10^3/ul MPV 8 (7.4-10.4) um3 Neut % (Auto) 71.2 (38-83) % Lymph % (Auto) 14.1 L (25-47) % Free[place] % (Auto) 9.5 H (1-9) % Eos % (Auto) 5.0 (0-6) % Baso % (Auto) 0.2 (0-2) % Absolute Neuts (auto) 6.6 (1.5-7.7) 10^3/ul Absolute Lymphs (auto) 1.3 (1.0-4.8) 10^3/ul Absolute Monos (auto) 0.9 H (0-0.8) 10^3/ul Absolute Eos (auto) 0.5 (0-0.6) 10^3/ul Absolute Basos (auto) 0 (0-0.2) 10^3/ul Absolute Nucleated RBC 0 10^3/ul Nucleated RBC % 0 Sodium 135 (133-145) mmol/L Potassium 4.5 (3.5-5.0) mmol/L Chloride 100 L (101-111) mmol/L Carbon Dioxide 29 (22-32) mmol/L Anion Gap 6 (2-11) mmol/L BUN 39 H (6-24) mg/dL Creatinine 1.50 H (0.51-0.95) mg/dL Est GFR ( Amer) 42.6 (>60) Est GFR (Non-Af Amer) 33.2 (>60) BUN/Creatinine Ratio 26.0 H (8-20) Glucose 99 (70-100) mg/dL Calcium 9.2 (8.6-10.3) mg/dL Total Bilirubin 0.40 (0.2-1.0) mg/dL AST 17 (13-39) U/L ALT 11 (7-52) U/L Alkaline Phosphatase 91 (34-104) U/L Troponin I 0.01 (<0.04) ng/mL C-Reactive Protein 43.42 H (< 5.00) mg/L B-Natriuretic Peptide 115 H ( - 100) pg/mL Total Protein 7.5 (6.4-8.9) g/dL Albumin 4.1 (3.2-5.2) g/dL Globulin 3.4 (2-4) g/dL Albumin/Globulin Ratio 1.2 (1-3) Procalcitonin (<0.6) ng/mL 08/04/16 Range/Units 15:40 WBC (3.5-10.8) 10^3/ul RBC (4.0-5.4) 10^6/ul Hgb (12.0-16.0) g/dl Hct (35-47) % MCV (80-97) fL MCH (27-31) pg MCHC (31-36) g/dl RDW (10.5-15) % Plt Count (150-450) 10^3/ul MPV (7.4-10.4) um3 Neut % (Auto) (38-83) % Lymph % (Auto) (25-47) % Freeborn % (Auto) (1-9) % Eos % (Auto) (0-6) % Baso % (Auto) (0-2) % Absolute Neuts (auto) (1.5-7.7) 10^3/ul Absolute Lymphs (auto) (1.0-4.8) 10^3/ul Absolute Monos (auto) (0-0.8) 10^3/ul Absolute Eos (auto) (0-0.6) 10^3/ul Absolute Basos (auto) (0-0.2) 10^3/ul Absolute Nucleated RBC 10^3/ul Nucleated RBC % Sodium (133-145) mmol/L Potassium (3.5-5.0) mmol/L Chloride (101-111) mmol/L Carbon Dioxide (22-32) mmol/L Anion Gap (2-11) mmol/L BUN (6-24) mg/dL Creatinine (0.51-0.95) mg/dL Est GFR ( Amer) (>60) Est GFR (Non-Af Amer) (>60) BUN/Creatinine Ratio (8-20) Glucose (70-100) mg/dL Calcium (8.6-10.3) mg/dL Total Bilirubin (0.2-1.0) mg/dL AST (13-39) U/L ALT (7-52) U/L Alkaline Phosphatase (34-104) U/L Troponin I (<0.04) ng/mL C-Reactive Protein (< 5.00) mg/L B-Natriuretic Peptide ( - 100) pg/mL Total Protein (6.4-8.9) g/dL Albumin (3.2-5.2) g/dL Globulin (2-4) g/dL Albumin/Globulin Ratio (1-3) Procalcitonin 0.1 (<0.6) ng/mL Microbiology and Other Data: Microbiology 08/04/16 19:18 Influenza Types A,B Antigen (LIZ) - Final Nasal Specimen received for Influenza A/B Molecular testing Assess/Plan/Problems-Billing Assessment: B/L LE leg pain and swelling, URI likely viral in an 85 yo F with hx of HTN, CAD , COPD, anxiety, AFib, GERD 85 yo F who has a h/o stable CAD, HTN, hypothyroidism and anxiety - Patient Problems (1) Leg edema Comment: and erythema-resolving. Seems unlikely patient had B/L LE cellulitis. Will continue IV Lasix BID. will cont PO Doxycyline (was on Keflex as outpatient) in case she has some element of cellulitis, this will cover respiratory pathogens as well. Teds ordered (2) URI (upper respiratory infection) Comment: No evidence of PNA on CXR. procalcitonin neg Continue supportive care. (3) Hx of congestive heart failure Comment: In acute exacerbation Acute, diastolic Holding Demadex. cont IV Lasix (4) CKD (chronic kidney disease) Comment: Creatinine is at baseline. (5) Hx of coronary artery disease Comment: Continue asa, statin (6) History of hypertension Comment: Continue home Cardizem (7) History of hypothyroidism Comment: Continue levothyroxine. (8) DVT prophylaxis Comment: SQ heparin Status and Disposition: inpatient, may be able to go back to [facility] in AM. PT/OT eval pending
[2016-08-07] MEDS: guaiFENesin LIQ* 100 MG/5 ML UDC PO PRN (13:33)
[2016-08-07] MEDS: CMC: Simvastatin TAB(NF) 10 MG TAB PO SCH (21:20)
[2016-08-07] MEDS: Latanoprost 0.005%* 2.5 ml BTL BOTH EYES SCH (21:23)
[2016-08-07] MEDS: traMADol TAB* 50 MG PO PRN (23:35)
[2016-08-08] MEDS: ALPRAZolam TAB* 0.25 MG PO PRN ×3 (04:51→22:09)
[2016-08-08] MEDS: guaiFENesin LIQ* 100 MG/5 ML UDC PO PRN ×2 (04:52→17:16)
[2016-08-08] MEDS: Heparin VIAL(*) 5000 UNITS/ML VIAL (FIVE THOUSAND) SUBCUT SCH ×3 (04:52→21:24)
[2016-08-08] MEDS: Levothyroxine TAB* 75 MCG TAB PO SCH (04:58)
[2016-08-08] MEDS: Albuterol/Ipratropium NEB.SOL* Albuterol 2.5 MG/Ipratropium 0.5 MG 3 ML INH SCH ×3 (08:11→20:17)
[2016-08-08] MEDS: Aspirin EC Low Dose* 81 MG TAB.EC PO SCH (09:57)
[2016-08-08] MEDS: DOXYcycline CAP(*) 100 MG PO SCH ×2 (09:57→20:54)
[2016-08-08] MEDS: Diltiazem CD CAP* 240 MG PO SCH (09:57)
[2016-08-08] MEDS: Furosemide IV* 10 MG/ML 10 ML VIAL (100 MG) IV SCH ×2 (09:57→16:03)
[2016-08-08] MEDS: Fluorometholone 0.1% OPTH.SUS* 5 ML BTL BOTH EYES SCH (11:51)
[2016-08-08] MEDS: Artificial Tears* 15 ML BTL BOTH EYES PRN ×2 (11:55→21:23)
[2016-08-08] MEDS: Hydrocortisone 1% CREAM* 30 GM TUBE TOPICAL SCH ×2 (14:54→20:50)
[2016-08-08] MEDS: traMADol TAB* 50 MG PO PRN ×2 (16:03→22:09)
[2016-08-08] MEDS: Benzocaine/Menthol LOZ* 1 LOZENGE PO PRN (16:03)
[2016-08-08] MEDS: Benzonatate CAP* 100 MG PO PRN (16:54)
[2016-08-08] MEDS: Latanoprost 0.005%* 2.5 ml BTL BOTH EYES SCH (20:53)
[2016-08-08] MEDS: CMC: Simvastatin TAB(NF) 10 MG TAB PO SCH (20:54)
[2016-08-08] MEDS ORDERED: Calcium Carbonate CHEW TAB* 500 MG (TUMS) PO PRN (21:10)
--- NOTE | 2016-08-09 02:40 | DS ---
DISCHARGE SUMMARY: DATE OF ADMISSION: 08/04/16 ANTICIPATED DATE OF DISCHARGE: 08/09/16 PRIMARY CARE PHYSICIAN: Dr. Joaquin. DISPOSITION: The patient is being discharged to [facility] residence for rehabilitation. Please note that this document is dictated the night prior to patient's discharge. DISCHARGE DIAGNOSES: 1. Acute diastolic congestive heart failure with ejection fraction documented in June of 2016 at 60% to 65%. 2. Bilateral leg edema due to above. 3. Possible leg cellulitis, resolved. SECONDARY DIAGNOSES: 1. History of diastolic congestive heart failure. 2. Hypothyroidism. 3. Hypertension. 4. Anxiety. 5. Depression. 6. Hyperlipidemia. 7. Osteoporosis. 8. Glaucoma. 9. Chronic obstructive pulmonary disease. 10. History of atrial fibrillation in the past. 11. History of diverticulitis in the past. 12. Gastroesophageal reflux disease. 13. History of coronary artery disease, recent cardiac stress test documented in June of [address] Swanson at that point saw the patient in consultation and recommended medical treatment of the patient's angina. The patient had no symptoms of angina during her hospital stay. MEDICATIONS AT DISCHARGE: Include: 1. Xanax 0.125 mg p.o. every 4 hours p.r.n. 2. Tylenol on a p.r.n. basis. 3. Albuterol inhaler 2 puffs every 4 hours p.r.n. 4. DuoNebs 3 times a day schedule. 5. Aspirin 81 mg daily. 6. Tessalon 100 mg t.i.d. p.r.n. 7. Biotin 300 mcg daily. 8. Calcium carbonate 500 mg 4 times a day. 9. Vitamin D3 50,000 units p.o. weekly. 10. Doxycycline 100 mg p.o. b.i.d., last dose being 08/10/16. 11. Cardizem CD 240 mg daily. 12. Fluorometholone eye drops 1 drop to both eyes daily. 13. Flonase nasal spray 2 sprays both nostrils daily. 14. Hydrocortisone 1% cream one application to right medial thigh. The patient is to discontinue the cream on 08/27/16. 15. Xalatan eye drops one drop to both eyes at bedtime. 16. Synthroid 75 mcg daily. 17. Imodium 2 mg t.i.d. p.r.n. 18. Menthol tablets on a p.r.n. basis. 19. Nitroglycerin sublingually 0.4 mg every 5 minutes for chest pain. 20. Zofran on a p.r.n. basis. 21. Refresh eye drops, one drop both eyes daily p.r.n. 22. Torsemide 40 mg daily, that is a new increased dose. 23. Mucinex 600 mg every 12 hours p.r.n. 24. Ultram 25 mg p.o. at bedtime p.r.n. LABORATORY DATA: Prior to discharge include: On 08/07/16, sodium of 136, potassium 3.9, chloride 100, carbon dioxide 31, BUN 24, and creatinine 1.18. CBC documented on 08/05/16 showed white blood cell count of 7.8, hemoglobin 11.5 , hematocrit 34, and platelets of 223. Troponin admitted on admission was 0.07. Procalcitonin level was 0.1. Influenza test was negative at admission. Portable chest x-ray obtained on admission; impression, "No active cardiopulmonary disease is noted." The patient's weight at discharge was 169 pounds. The patient is instructed for the intermediate staff to weigh patient on a daily basis and to notify the physician as weight increases over 2 pounds. HOSPITALIZATION COURSE: Alvina Jones is an 85-year-old female who had been off and on seen at our hospital in the past month and a half. First time she came in at the beginning of June 2016 for chest pain. It was noted that she had positive stress test and it was decided for the patient to be treated medically. On 07/27/16, the patient came into the hospital with complaints of jaw discomfort and bilateral lower extremity swelling and edema. She was diagnosed with possible bilateral lower extremity cellulitis and was placed on Keflex. She presented to the hospital within the week after her discharge with complaints of continuation of leg edema. At that point, she also complained of dry cough. She was placed on doxycycline empirically, although it was questioned if the patient did have in fact an infection in bilateral lower extremities or if the erythema was a consequence of venous stasis dermatitis, and edema due to CHF. Nevertheless, her erythema improved greatly with the use of doxycycline. Her edema improved after intravenous Lasix treatment. The patient was diagnosed with acute diastolic CHF, treated with intravenous Lasix. She was noted to have a weight of 177 at admission and her weight was down to 169 at discharge. Her erythema basically resolved by the time of discharge apart from a small area that is excoriated skin on the right medial thigh. The patient stated that the area is pruritic. I placed her on hydrocortisone cream , a short course, to be stopped in a couple of days. At discharge, the patient is to finish a course of doxycycline that she was started with during her hospital stay. She was educated about diet and checking her weight. By the time of discharge, she was too weak to go back to assisted living facility and she was recommended short-term rehabilitation. She is being accepted at [facility] for rehab on 08/09/16. The discharge is, as stated, the night prior to patient's departure. PHYSICAL EXAMINATION: At the time of the dictation: Vitals: Blood pressure 140/72, heart rate of 77 and regular, respiratory rate of 16, oxygen saturation 99% on 2 liters oxygen nasal cannula, temperature is 97.7. General: The patient is a very pleasant 85-year-old female who is in no acute distress. Alert, awake, and oriented x3. HEENT: Head is atraumatic and normocephalic. Eyes: Pupils equal, reactive to light, and accommodation. Pharynx clear. Mucosa is moist. Neck: Supple. No JVD. No bruits bilaterally. Cardiovascular: Regular rate and rhythm. No murmur. Respiratory : Faint crackles at bilateral bases, otherwise clear. Abdomen: Soft and nontender. Bowel sounds present in all 4 quadrants. Extremities: There is +1 pitting pedal edema with venous stasis changes in bilateral lower extremities and chronic leg discoloration. There is no clubbing or cyanosis noted. On further evaluation of the skin in the right medial thigh, right buttock and the patient's groin, the patient has a patch of approximately 10 cm x 5 cm that is slightly excoriated. The patient apparently has been scratching this area. There is no area of cellulitis noted there. Neuro Evaluation: Speech clear. Cranial nerves II through XII grossly intact. Motor strength is 5/5 bilaterally. Please note this is a short summary of the patient's hospital stay. Please refer to further medical records for details. TIME SPENT: Approximately 45 minutes was spent on the patient's discharge. CC: Dr. Joaquin; [facility]* [id number]/CPS #: [id number] MTDD
[2016-08-09] MEDS: Artificial Tears* 15 ML BTL BOTH EYES PRN ×3 (04:15→09:57)
[2016-08-09] MEDS: traMADol TAB* 50 MG PO PRN ×2 (04:16→12:10)
[2016-08-09] MEDS: guaiFENesin LIQ* 100 MG/5 ML UDC PO PRN ×2 (04:17→12:10)
[2016-08-09] MEDS: ALPRAZolam TAB* 0.25 MG PO PRN ×2 (04:25→09:58)
[2016-08-09] MEDS: Heparin VIAL(*) 5000 UNITS/ML VIAL (FIVE THOUSAND) SUBCUT SCH (05:39)
[2016-08-09] MEDS: Levothyroxine TAB* 75 MCG TAB PO SCH (05:42)
[2016-08-09 07:55] VITALS: BP 123/62
[2016-08-09] MEDS: Albuterol/Ipratropium NEB.SOL* Albuterol 2.5 MG/Ipratropium 0.5 MG 3 ML INH SCH (07:59)
[2016-08-09] MEDS ORDERED: Fluticasone NASAL SPRAY 50MCG* 16 gm SPRAY BTL BOTH NARES SCH (09:00)
[2016-08-09] MEDS: Aspirin EC Low Dose* 81 MG TAB.EC PO SCH (09:55)
[2016-08-09] MEDS: Hydrocortisone 1% CREAM* 30 GM TUBE TOPICAL SCH (09:55)
[2016-08-09] MEDS: DOXYcycline CAP(*) 100 MG PO SCH (09:55)
[2016-08-09] MEDS: Diltiazem CD CAP* 240 MG PO SCH (09:55)
[2016-08-09] MEDS: Furosemide IV* 10 MG/ML 10 ML VIAL (100 MG) IV SCH (09:56)
[2016-08-09] MEDS: Fluorometholone 0.1% OPTH.SUS* 5 ML BTL BOTH EYES SCH (09:57)
== END 2016-08-09 12:20 | DRG 292 ==
LOC: ED 14:25 → MEDTELE 16:59 → OBSVTOIN 08-05 11:41 → MED 08-06 12:03
PROVIDERS: ADMIT Internal Medicine; ATTEND Internal Medicine
DX: I11.0 Hypertensive heart disease with heart failure (principal); K57.92 Diverticulitis of intestine, part unspecified, without perforation or abscess without bleeding; J44.9 Chronic obstructive pulmonary disease, unspecified; I48.91 Unspecified atrial fibrillation; L03.119 Cellulitis of unspecified part of limb; F32.9 Major depressive disorder, single episode, unspecified; Z94.7 Corneal transplant status; Z88.0 Allergy status to penicillin; Z88.2 Allergy status to sulfonamides; Z88.8 Allergy status to other drugs, medicaments and biological substances; I25.10 Atherosclerotic heart disease of native coronary artery without angina pectoris; Z95.5 Presence of coronary angioplasty implant and graft; K21.9 Gastro-esophageal reflux disease without esophagitis; Z93.3 Colostomy status; M19.90 Unspecified osteoarthritis, unspecified site; F41.9 Anxiety disorder, unspecified; Z98.41 Cataract extraction status, right eye; Z82.49 Family history of ischemic heart disease and other diseases of the circulatory system; Z87.891 Personal history of nicotine dependence; E03.9 Hypothyroidism, unspecified; M81.0 Age-related osteoporosis without current pathological fracture; H40.9 Unspecified glaucoma; Z83.3 Family history of diabetes mellitus; J06.9 Acute upper respiratory infection, unspecified; I50.31 Acute diastolic (congestive) heart failure; Z79.82 Long term (current) use of aspirin; E78.5 Hyperlipidemia, unspecified
CPT/HCPCS: 36415; 71010; 80048; 80053; 83880; 84145; 84484; 85025; 85610; 86140; 87502; 93005; 94640; 94760; A9270-GY; G0378; J0696; J1644; J1940